=== PATIENT | male | born 1980 | race Caucasian/White ===

== ENCOUNTER 2020-09-12 04:35 | Emergency (ER) | payer MEDICAID, SELFPAY ==
[2020-09-12] VITALS (7 sets, daily range): BP systolic 127–145; BP diastolic 61–86; PULSE 76–89; RESP 15–18; TEMP 36.8–37; O2SAT 89–100; BMI 29.0
--- NOTE | 2020-09-12 04:51 | ED_ITS ---
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 Patient states taking 2 Klonopin than 1 beer and endorses that he also free based. As per EMS he was noted to vomit up dark colored material but no gross blood noted. Related Data Allergies Allergy/AdvReac Type Severity Reaction Status Date / Time No Known Allergies Allergy Verified 09/12/20 05:49 [No Known Allergies*] Review of Systems Review of Systems: Pertinent positives and negatives as stated in HPI 10 point review of systems otherwise negative. [facility] Past Medical History Source: nursing notes reviewed Medical History Drug abuse Liver disease Social History Social History Alcohol intake: current Alcohol intake frequency: 3 or more drinks per day Alcohol type: beer Smoking Status: Current every day smoker Use of substances other than those prescribed or required for medical reasons: Yes Substance Use Type: Crack/Cocaine and Sedatives Substance Use Frequency: Chronic Longstanding Last Used Substance: Just Prior to Admission Any prior treatment program specific to substance use: Yes Advance Directives: No Advance Directives Information Provided: No Physical Exam Vital Signs: Vital Signs: Last Vital Signs Temp 98.6 F 09/12/20 05:39 Pulse 76 09/12/20 08:04 Resp 16 09/12/20 07:23 BP 133/76 09/12/20 08:04 Pulse Ox 96 09/12/20 08:04 Body Mass Index 29.0 VITAL SIGNS: Reviewed. GENERAL: no acute distress. HEAD: Normocephalic/atraumatic, EYES: PERRLA, EOMI intact without pain EARS: Ext canals without abnormality, TMs non-bulging and non-erythematous NOSE: Nares patent bilateral OROPHARYNX: no oral lesions noted, posterior pharynx clear NECK: Supple, no adenopathy LUNGS: Normal breath sounds. No adventitious sounds or accessory muscle use. SpO2<96> on 2 L CARDIOVASCULAR: Regular rate and rhythm without noted murmurs, no JVD or lower extremity edema. ABDOMEN: Soft, mild tenderness to palpation on the right upper quadrant area without rebound, non-distended with bowel sounds. No rigidity. No guarding. No palpable masses or hernias noted NEUROLOGIC: Drowsy and oriented x 3. Course Course Course Narrative: Is a 39-year-old male with history and clinical presentation consistent with polysubstance use and liver disease. On review of all investigations INR and mild elevation of transaminases consistent with his endorsed history of liver disease and alcohol/drug dependence. Chest x-ray negative for any acute findings. Plan is to allow for the patient to become sober and reassess with a CBC at 4:00 a.m. prior to discharge to assess for evidence of bleeding. Sign out given to Dr Oseguera. MDM - Alcohol Lab Data Result diagrams: 09/12/20 05:29 09/12/20 05:29 Labs: Lab Results 09/12/20 09/12/20 09/12/20 Range/Units 05:29 05:29 05:29 WBC 15.9 H (4.8-10.8) X10*3/uL RBC 4.85 (4.60-5.80) X10*6/uL Hgb 9.8 L (14.0-18.0) g/dl Hct 34.5 L (42-52) % MCV 71.1 L (80-98) fL MCH 20.2 L (27.0-33.0) pg MCHC 28.4 L (31.0-36.0) g/dl RDW 19.4 H (11.0-16.0) % Plt Count 226 (160-400) X10*3/uL Immature Gran % (Auto) 0.4 (0.0-0.4) % Neut % (Auto) 90.3 H (45-73) % Lymph % (Auto) 4.4 L (20-40) % [place] % (Auto) 4.5 (2-11) % Eos % (Auto) 0.1 (0-4) % Baso % (Auto) 0.3 (0-2) % Lymph # (Auto) 0.7 L (1.2-4.9) X10*3/uL [place] # (Auto) 0.7 (0.1-1.2) X10*3/uL Eos # (Auto) 0.0 (0.0-0.4) X10*3/uL Baso # (Auto) 0.1 (0.0-0.2) X10*3/uL Abs Immat Gran (auto) 0.06 H (0.00-0.03) X10*3/uL Absolute Neuts (auto) 14.3 H (2.0-8.3) X10*3/uL Absolute Nucleated RBC 0.000 (0.0-0.012) X10*3/uL Nucleated RBC % (auto) 0.0 (0.0-0.2) /100WBC Smear Tech's Comments VERIFIED PT (10.8-13.0) SEC INR (0.9-1.1) Sodium 136 (135-145) mmol/L Potassium 4.4 (3.3-5.1) mmol/l Chloride 90 L (96-108) mmol/L Carbon Dioxide 32 H (22-29) mmol/L Anion Gap 18 (12-20) BUN 28 H (9-16) mg/dL Creatinine 1.17 (0.5-1.4) mg/dL Estim Creat Clear Calc 89.7 Estimated GFR > 60 Random Glucose 74 (60-115) mg/dL Calcium 9.2 (8.4-10.2) mg/dL Total Bilirubin 0.6 (0.0-1.0) mg/dL AST 184 H (5-37) U/L ALT 79 H (0-40) U/L Alkaline Phosphatase 69 (39-117) U/L Total Protein 8.1 H (6.5-8.0) g/dL Albumin 4.6 (3.5-5.0) g/dL Lipase 44 (8-78) U/L Ethyl Alcohol < 10 mg/dL 09/12/20 Range/Units 05:29 WBC (4.8-10.8) X10*3/uL RBC (4.60-5.80) X10*6/uL Hgb (14.0-18.0) g/dl Hct (42-52) % MCV (80-98) fL MCH (27.0-33.0) pg MCHC (31.0-36.0) g/dl RDW (11.0-16.0) % Plt Count (160-400) X10*3/uL Immature Gran % (Auto) (0.0-0.4) % Neut % (Auto) (45-73) % Lymph % (Auto) (20-40) % [place] % (Auto) (2-11) % Eos % (Auto) (0-4) % Baso % (Auto) (0-2) % Lymph # (Auto) (1.2-4.9) X10*3/uL [place] # (Auto) (0.1-1.2) X10*3/uL Eos # (Auto) (0.0-0.4) X10*3/uL Baso # (Auto) (0.0-0.2) X10*3/uL Abs Immat Gran (auto) (0.00-0.03) X10*3/uL Absolute Neuts (auto) (2.0-8.3) X10*3/uL Absolute Nucleated RBC (0.0-0.012) X10*3/uL Nucleated RBC % (auto) (0.0-0.2) /100WBC Smear Tech's Comments PT 13.9 H (10.8-13.0) SEC INR 1.2 H (0.9-1.1) Sodium (135-145) mmol/L Potassium (3.3-5.1) mmol/l Chloride (96-108) mmol/L Carbon Dioxide (22-29) mmol/L Anion Gap (12-20) BUN (9-16) mg/dL Creatinine (0.5-1.4) mg/dL Estim Creat Clear Calc Estimated GFR Random Glucose (60-115) mg/dL Calcium (8.4-10.2) mg/dL Total Bilirubin (0.0-1.0) mg/dL AST (5-37) U/L ALT (0-40) U/L Alkaline Phosphatase (39-117) U/L Total Protein (6.5-8.0) g/dL Albumin (3.5-5.0) g/dL Lipase (8-78) U/L Ethyl Alcohol mg/dL Discharge Plan Discharge Clinical Impression: Polysubstance dependence including opioid drug with daily use Patient Disposition: Home, Self-Care Additional Instructions: Please do not hesitate to return the emergency department should you experience shortness of breath, chest pain.
[2020-09-12] MEDS: 0.9 % Sodium Chloride 1,000 ML 999 ML IV (05:28)
[2020-09-12 05:40] LABS: Eosinophils Percent Auto 0.1 % (0-4); MANUAL DIFF FLAG SCAN; SCAN SMEAR FLAG 1
[2020-09-12 05:42] LABS: Basophils Absolute Auto 0.1 X10*3/uL (0.0-0.2); Basophils Percent Auto 0.3 % (0-2); Hematocrit 34.5 % (42-52); Hemoglobin 9.8 g/dl (14.0-18.0); Imm Gran Abs Auto 0.06 X10*3/uL (0.00-0.03); Imm Gran Pct Auto 0.4 % (0.0-0.4); Lymphocytes Absolute Auto 0.7 X10*3/uL (1.2-4.9); Lymphocytes Percent Auto 4.4 % (20-40); Mean Corpuscular HGB Conc 28.4 g/dl (31.0-36.0); Mean Corpuscular Hemoglobin 20.2 pg (27.0-33.0); Mean Corpuscular Volume 71.1 fL (80-98); Monocytes Absolute Auto 0.7 X10*3/uL (0.1-1.2); Monocytes Percent Auto 4.5 % (2-11); Neutrophils Absolute Auto 14.3 X10*3/uL (2.0-8.3); Neutrophils Percent Auto 90.3 % (45-73); Platelet Count 226 X10*3/uL (160-400); Red Blood Count 4.85 X10*6/uL (4.60-5.80); Red Cell Distribution Width 19.4 % (11.0-16.0); White Blood Count 15.9 X10*3/uL (4.8-10.8)
[2020-09-12 05:45] LABS: INTERNATIONAL NORM RATIO 1.2 (0.9-1.1); Prothrombin Time 13.9 SEC (10.8-13.0)
[2020-09-12 05:47] LABS: PLT ABN DIST 1
--- NOTE | 2020-09-12 05:50 | XR_ITS ---
EXAMINATION: XR CHEST CLINICAL INFORMATION: Cough COMPARISON: CT 04/07/2020 TECHNIQUE: Frontal view of the chest was obtained. FINDINGS: The lungs are well expanded. There is no focal consolidation, edema, or effusion. No pneumothorax. The cardiomediastinal silhouette is within normal limits. No acute osseous abnormality. XR/XR chest 1V IMPRESSION: Clear lungs.
--- NOTE | 2020-09-12 05:52 | PC.NURSE ---
Patient was found in a lobby of an apartment building where he does not live. Apparently, patient was intoxicated and found in his own vomit which was black according to EMS. Patient states that he took 2 clonazepam and drank 1 beer per his report. Patient's initial oxygen sat was 89 percent. Oxygen administered at 2 liters and O2 sat increased to 99 percent. Patient then stated that he took coke and did a speedball when speaking to MD. Patient is an unreliable source of information. Patient initially denied doing any other drugs and then admitted to it and then denied it again. He also report he has an issue with his liver and received treatment while at [facility]. MD evaluation completed and patient lined and lab'd.
[2020-09-12 06:00] LABS: Ethanol < 10 mg/dL
[2020-09-12 06:11] LABS: SLIDE REVIEW VERIFIED
[2020-09-12 06:46] LABS: Alanine Aminotransferase 79 U/L (0-40); Albumin Level 4.6 g/dL (3.5-5.0); Alkaline Phosphatase 69 U/L (39-117); Anion Gap 18 (12-20); Aspartate Amino Transferase 184 U/L (5-37); Bilirubin Total 0.6 mg/dL (0.0-1.0); Blood Urea Nitrogen 28 mg/dL (9-16); Calcium 9.2 mg/dL (8.4-10.2); Carbon Dioxide 32 mmol/L (22-29); Chloride 90 mmol/L (96-108); Creatinine Clr Calc Pharmacy 89.7; Estimated Glomerular Filt Rate > 60; Glucose Random 74 mg/dL (60-115); Potassium 4.4 mmol/l (3.3-5.1); Sodium 136 mmol/L (135-145); Total Protein 8.1 g/dL (6.5-8.0)
--- NOTE | 2020-09-12 07:22 | PC.NURSE ---
pt appears comfortable in bed, rr even/unlabored spo2 100% on 2l nc. pt spo2 turned off and pt desat to 95%; placed back on 0.5l/min nc for comfort, spo2 up to 98%. alert to tactile stimuli. wctm.
[2020-09-12 07:42] LABS: Lipase 44 U/L (8-78)
--- NOTE | 2020-09-12 08:03 | PC.NURSE ---
Addendum entered by Jair Mcintosh 09/12/20 08:11: tolerating po w/o issue. Original Note: pt awake, asking for something to eat. educated about need for urine sample, given urinal. given sandwich and water.
[2020-09-12 08:42] LABS: Amphetamine Screen Urine Not Detected (Not Detect); Barbiturates, Urine Not Detected (Not Detect); Benzodiazepines Screen Urine POSITIVE (Not Detect); Cannabinoid Screen Urine Not Detected (Not Detect); Cocaine Screen Urine POSITIVE (Not Detect); Opiate Screen Urine POSITIVE (Not Detect); Phencyclidine Screen Urine Not Detected (Not Detect)
--- NOTE | 2020-09-12 09:29 | PC.NURSE ---
PT EATING AND DRINKING WITHOUT DIFFICULTY
--- NOTE | 2020-09-12 09:52 | PC.NURSE ---
pt tolerating food, currently in br getting dressed and ready to leave
--- NOTE | 2020-09-12 10:37 | ED_ITS ---
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 Mode of arrival: EMS Related Data Allergies Allergy/AdvReac Type Severity Reaction Status Date / Time No Known Allergies Allergy Verified 09/12/20 05:49 [No Known Allergies*] [facility] Past Medical History Medical History Drug abuse Liver disease Social History Social History Alcohol intake: current Alcohol intake frequency: 3 or more drinks per day Alcohol type: beer Smoking Status: Current every day smoker Use of substances other than those prescribed or required for medical reasons: Yes Substance Use Type: Crack/Cocaine and Sedatives Substance Use Frequency: Chronic Longstanding Last Used Substance: Just Prior to Admission Any prior treatment program specific to substance use: Yes Advance Directives: No Advance Directives Information Provided: No Physical Exam Vital Signs: Vital Signs: Last Vital Signs Temp 98.6 F 09/12/20 05:39 Pulse 76 09/12/20 08:04 Resp 16 09/12/20 07:23 BP 133/76 09/12/20 08:04 Pulse Ox 96 09/12/20 08:04 Body Mass Index 29.0 Medical Decision Making MDM Narrative Medical decision making narrative: Patient well-appearing at 10:30 is awake alert. Will ambulate patient. In stable condition. Patient admits to using recreational drugs. Awaiting discharge Patient's repeat hemoglobin approximately baseline and consideration of patient getting fluid here in the emergency department overnight. Patient refused detox. Case management evaluated patient. Patient will be discharged. Lab Data Result diagrams: 09/12/20 11:24 09/12/20 05:29 Labs: Lab Results 09/12/20 09/12/20 09/12/20 Range/Units 05:29 05:29 05:29 WBC 15.9 H (4.8-10.8) X10*3/uL RBC 4.85 (4.60-5.80) X10*6/uL Hgb 9.8 L (14.0-18.0) g/dl Hct 34.5 L (42-52) % MCV 71.1 L (80-98) fL MCH 20.2 L (27.0-33.0) pg MCHC 28.4 L (31.0-36.0) g/dl RDW 19.4 H (11.0-16.0) % Plt Count 226 (160-400) X10*3/uL MPV (9.4-12.4) fL Immature Gran % (Auto) 0.4 (0.0-0.4) % Neut % (Auto) 90.3 H (45-73) % Lymph % (Auto) 4.4 L (20-40) % [place] % (Auto) 4.5 (2-11) % Eos % (Auto) 0.1 (0-4) % Baso % (Auto) 0.3 (0-2) % Lymph # (Auto) 0.7 L (1.2-4.9) X10*3/uL [place] # (Auto) 0.7 (0.1-1.2) X10*3/uL Eos # (Auto) 0.0 (0.0-0.4) X10*3/uL Baso # (Auto) 0.1 (0.0-0.2) X10*3/uL Abs Immat Gran (auto) 0.06 H (0.00-0.03) X10*3/uL Absolute Neuts (auto) 14.3 H (2.0-8.3) X10*3/uL Absolute Nucleated RBC 0.000 (0.0-0.012) X10*3/uL Nucleated RBC % (auto) 0.0 (0.0-0.2) /100WBC Smear Tech's Comments VERIFIED PT (10.8-13.0) SEC INR (0.9-1.1) Sodium 136 (135-145) mmol/L Potassium 4.4 (3.3-5.1) mmol/l Chloride 90 L (96-108) mmol/L Carbon Dioxide 32 H (22-29) mmol/L Anion Gap 18 (12-20) BUN 28 H (9-16) mg/dL Creatinine 1.17 (0.5-1.4) mg/dL Estim Creat Clear Calc 89.7 Estimated GFR > 60 Random Glucose 74 (60-115) mg/dL Calcium 9.2 (8.4-10.2) mg/dL Total Bilirubin 0.6 (0.0-1.0) mg/dL AST 184 H (5-37) U/L ALT 79 H (0-40) U/L Alkaline Phosphatase 69 (39-117) U/L Total Protein 8.1 H (6.5-8.0) g/dL Albumin 4.6 (3.5-5.0) g/dL Lipase 44 (8-78) U/L Urine Opiates Screen (Not Detect) Ur Barbiturates Screen (Not Detect) Ur Phencyclidine Scrn (Not Detect) Ur Amphetamines Screen (Not Detect) U Benzodiazepines Scrn (Not Detect) Urine Cocaine Screen (Not Detect) U Marijuana (THC) Screen (Not Detect) Ethyl Alcohol < 10 mg/dL 09/12/20 09/12/20 09/12/20 Range/Units 05:29 08:07 11:24 WBC 9.3 (4.8-10.8) X10*3/uL RBC 4.37 L (4.60-5.80) X10*6/uL Hgb 8.9 L (14.0-18.0) g/dl Hct 30.9 L (42-52) % MCV 70.7 L (80-98) fL MCH 20.4 L (27.0-33.0) pg MCHC 28.8 L (31.0-36.0) g/dl RDW 19.0 H (11.0-16.0) % Plt Count 244 (160-400) X10*3/uL MPV 10.5 (9.4-12.4) fL Immature Gran % (Auto) 0.2 (0.0-0.4) % Neut % (Auto) 84.7 H (45-73) % Lymph % (Auto) 8.8 L (20-40) % [place] % (Auto) 5.7 (2-11) % Eos % (Auto) 0.4 (0-4) % Baso % (Auto) 0.2 (0-2) % Lymph # (Auto) 0.8 L (1.2-4.9) X10*3/uL [place] # (Auto) 0.5 (0.1-1.2) X10*3/uL Eos # (Auto) 0.0 (0.0-0.4) X10*3/uL Baso # (Auto) 0.0 (0.0-0.2) X10*3/uL Abs Immat Gran (auto) 0.02 (0.00-0.03) X10*3/uL Absolute Neuts (auto) 7.9 (2.0-8.3) X10*3/uL Absolute Nucleated RBC 0.000 (0.0-0.012) X10*3/uL Nucleated RBC % (auto) 0.0 (0.0-0.2) /100WBC Smear Tech's Comments PT 13.9 H (10.8-13.0) SEC INR 1.2 H (0.9-1.1) Sodium (135-145) mmol/L Potassium (3.3-5.1) mmol/l Chloride (96-108) mmol/L Carbon Dioxide (22-29) mmol/L Anion Gap (12-20) BUN (9-16) mg/dL Creatinine (0.5-1.4) mg/dL Estim Creat Clear Calc Estimated GFR Random Glucose (60-115) mg/dL Calcium (8.4-10.2) mg/dL Total Bilirubin (0.0-1.0) mg/dL AST (5-37) U/L ALT (0-40) U/L Alkaline Phosphatase (39-117) U/L Total Protein (6.5-8.0) g/dL Albumin (3.5-5.0) g/dL Lipase (8-78) U/L Urine Opiates Screen POSITIVE H (Not Detect) Ur Barbiturates Screen Not Detected (Not Detect) Ur Phencyclidine Scrn Not Detected (Not Detect) Ur Amphetamines Screen Not Detected (Not Detect) U Benzodiazepines Scrn POSITIVE H (Not Detect) Urine Cocaine Screen POSITIVE H (Not Detect) U Marijuana (THC) Screen Not Detected (Not Detect) Ethyl Alcohol mg/dL Discharge Plan Discharge Clinical Impression: Polysubstance dependence including opioid drug with daily use Patient Disposition: Home, Self-Care Additional Instructions: Please do not hesitate to return the emergency department should you experience shortness of breath, chest pain.
--- NOTE | 2020-09-12 11:21 | MHC.CM.ED ---
Requested to meet with pt by Dr. Oseguera to determine transportation pending d/c home. Pt refuses to go home. States he has too much stomach pain. Pt states he is homeless and his listed address is his sisters. Pt states he cannot go there. Reported conversation to Dr. Oseguera. Ordered fannie.
[2020-09-12] MEDS: Magnesium Hydrox/Alum Hydrox 30 ML ORAL.SUSP PO (11:26)
[2020-09-12 11:30] LABS: MANUAL DIFF FLAG NO
[2020-09-12 11:33] LABS: Basophils Percent Auto 0.2 % (0-2); Eosinophils Percent Auto 0.4 % (0-4); Hematocrit 30.9 % (42-52); Hemoglobin 8.9 g/dl (14.0-18.0); Imm Gran Abs Auto 0.02 X10*3/uL (0.00-0.03); Imm Gran Pct Auto 0.2 % (0.0-0.4); Lymphocytes Absolute Auto 0.8 X10*3/uL (1.2-4.9); Lymphocytes Percent Auto 8.8 % (20-40); Mean Corpuscular HGB Conc 28.8 g/dl (31.0-36.0); Mean Corpuscular Hemoglobin 20.4 pg (27.0-33.0); Mean Corpuscular Volume 70.7 fL (80-98); Mean Platelet Volume 10.5 fL (9.4-12.4); Monocytes Absolute Auto 0.5 X10*3/uL (0.1-1.2); Monocytes Percent Auto 5.7 % (2-11); Neutrophils Absolute Auto 7.9 X10*3/uL (2.0-8.3); Neutrophils Percent Auto 84.7 % (45-73); Platelet Count 244 X10*3/uL (160-400); Red Blood Count 4.37 X10*6/uL (4.60-5.80); White Blood Count 9.3 X10*3/uL (4.8-10.8)
--- NOTE | 2020-09-12 12:02 | PC.NURSE ---
pt margret refusing to leave has appt at [facility] tomorrow at 2 states he doesn't have a ride
--- NOTE | 2020-09-12 12:23 | MHC.RECOVSUP ---
? Reason for consult:Continuity of care o Current location: [facility] o Identified substance use concern: Heroin - Withdrawal - Support Spoke in depth about MAT and the possibility of using that again. Pt. was on MAT through [facility] recently as 2 months ago. ? Intervention: o Community resources provided o Harm reduction discussion ? Plan: o Referral to [facility] o Follow up tomorrow o Patient to follow up with [facility] tomorrow at 2:00pm. ? Additional information: Pt. did not want to go to detox, pt was in withdrawel and very agitated. Suggested MAT and the patient was receptive to that and has a 2:00 pm appt. tomorrow with the clinic. Pt to be D/C.
== END 2020-09-12 12:21 | disposition home or self-care (01) ==
PROVIDERS: Student in an Organized Health Care Education/Training Program; Emergency Provider Emergency Medicine Emergency Medical Services
DX: F19.10 Other psychoactive substance abuse, uncomplicated (principal); F14.10 Cocaine abuse, uncomplicated; F11.10 Opioid abuse, uncomplicated; R11.10 Vomiting, unspecified; F17.200 Nicotine dependence, unspecified, uncomplicated
CPT/HCPCS: 36415; 71045; 80053; 80307; 80320; 83690; 85025; 85610; 96360; 99284; 99285

== ENCOUNTER 2021-02-28 14:44 | Inpatient (IN) | payer MEDICAID, SELFPAY ==
[2021-02-28] VITALS (36 sets, daily range): BP systolic 107–160; BP diastolic 52–88; PULSE 63–120; RESP 12–26; TEMP 35.5–36.7; O2SAT 95–100; BMI 30.4; BMI 25.8
--- NOTE | ~2021-02-28 | CT_ITS ---
EXAMINATION: CT CHEST, ABDOMEN AND PELVIS WITHOUT CONTRAST CLINICAL INFORMATION: Aspiration and GI bleed COMPARISON: Contrast enhanced CT chest, abdomen and pelvis 04/07/2020 TECHNIQUE: Multidetector volumetric imaging was performed from the thoracic inlet through the pubic symphysis without IV contrast. Sagittal and coronal reformatted images were obtained on the technologist's workstation. This CT examination was performed using dose optimization techniques as appropriate, variously including the following: *Automated exposure control *Adjustment of mA and/or kV according to patient size (this includes techniques or standardized protocols for targeted exams where dose is matched to indication/reason for exam; i.e. extremities or head) *Use of iterative reconstruction technique DLP: 1796 mGy-cm FINDINGS: CHEST: Lung: Bibasilar infiltrates/consolidations are present Mediastinum: An ET tube is present 4 cm above the tyrese. An NG tube has its tip in the stomach. The mediastinum is unremarkable. The central vascular structures are unremarkable. No hilar or mediastinal lymphadenopathy, but lack of IV contrast limits the exam for adenopathy evaluation.. Pericardium/Pleura: No significant effusion. A trace effusion is present on the left. No pleural mass or thickening. Chest Wall/Axilla: Unremarkable ABDOMEN/PELVIS: Peritoneal Space: No significant free air or free fluid identified. Liver, Gallbladder, Biliary Tree: The liver is normal in size, shape, and attenuation. No focal hepatic lesion or biliary ductal dilatation is present. The gallbladder is unremarkable with no evidence of radiopaque gallstones, gallbladder wall thickening, or obvious pericholecystic inflammatory changes. Pancreas: Unremarkable Spleen: Unremarkable Adrenal Glands: Unremarkable Kidneys and Ureters: The kidneys are normal in size, shape, and attenuation. No hydronephrosis, hydroureter, or calculi seen. No perinephric stranding. Bladder: Ochoa catheter is present in the bladder which is empty. Gastrointestinal Tract: The small and large bowel are unremarkable. The appendix is unremarkable. GI bleeding is difficult to assess without IV contrast, but no abnormal tumor or mass lesion is seen. Abdominal Wall: No significant hernia is appreciated. Lymph Nodes: Prominent retroperitoneal lymph nodes are present which are unchanged when compared to the prior study. The largest, left para-aortic, measures 1.9 x 1.1 in transverse dimensions (6: 36). Vascular: The aorta appears normal.. The IVC appears unremarkable. PELVIC VISCERA: There is a small amount of free intraperitoneal fluid is present in the pelvis. Prostate and seminal vesicles appear normal OSSEUS STRUCTURES: Mild degenerative changes are noted in the spine. No bony destructive lesions are seen. CT/CT abdomen pelvis wo con IMPRESSION: Bibasilar consolidations. Findings certainly would be compatible with aspiration. ET tube position. No acute abnormality seen in the abdomen or pelvis. Stable retroperitoneal lymph nodes.
--- NOTE | ~2021-02-28 | XR_ITS ---
EXAMINATION: XR CHEST CLINICAL INFORMATION: Aspiration pneumonia COMPARISON: Previous chest x-ray from 02/28/2021 TECHNIQUE: Frontal view of the chest was obtained. FINDINGS: There is an endotracheal tube with tip 5 cm above the tyrese. There is a nasogastric tube projects over the stomach. There is a right jugular line projects over the SVC. The cardiac and mediastinal contours are stable. There are increased markings at both lung bases, left greater than right, suggestive of pneumonia. This is not appreciably changed. There is no pleural effusion or pneumothorax. XR/XR chest 1V IMPRESSION: Satisfactory position of support line and tubes. No change in bilateral lower lobe airspace disease, left greater than right.
--- NOTE | ~2021-02-28 | XR_ITS ---
EXAMINATION: XR CHEST CLINICAL INFORMATION: Hypoxia. Rule out pneumonia. COMPARISON: Previous chest x-ray 09/12/2020 TECHNIQUE: Frontal view of the chest was obtained. FINDINGS: The cardiac silhouette is upper normal in size. There are increased perihilar lung markings questionable for airways disease/pneumonia mild pulmonary edema. The lungs are otherwise clear. There is no pleural effusion or pneumothorax. Bony structures are unremarkable. XR/XR chest 1V IMPRESSION: Upper normal-size cardiac silhouette. Increased perihilar lung markings questionable for airways disease/pneumonia versus mild pulmonary edema. Clinical correlation recommended.
--- NOTE | ~2021-02-28 | XR_ITS ---
EXAMINATION: XR CHEST CLINICAL INFORMATION: Check line and tube placement COMPARISON: Previous chest x-ray from earlier the same day TECHNIQUE: Frontal view of the chest was obtained. FINDINGS: There is a new endotracheal tube with tip 5 cm above the tyrese. There is a nasogastric tube projects over the stomach. There is a right jugular line projects over the SVC. The cardiac and mediastinal contours are stable. There are increased hilar markings. There is increasing airspace disease at the left lung base. There is no pleural effusion or pneumothorax. Bony structures are unremarkable. XR/XR chest 1V IMPRESSION: Satisfactory position of support line and tubes. Increasing airspace disease at the left lung base.
--- NOTE | 2021-02-28 14:52 | ED_ITS ---
HPI - Psych General Chief Complaint: ETOH/Substance Use Stated Complaint: HEROIN USE ([id number]),NO NARCAN NEEDED PER EMS Time Seen by Provider: 02/28/21 14:51 Source: patient and EMS Mode of arrival: EMS Limitations: other (difficult to follow at times due to intoxication) History of Present Illness HPI Narrative: 40 yo male snorting heroin and crack I haven't slept in 6 days I feel out of it my body is like not okay. no SI, just left detox 1 month ago post section 35 MD complaint: anxiety and substance abuse Onset (ago): day(s) (7) Duration: constant History of same: Yes Relieving factors: none Exacerbating factors: drug use Context: recent drug abuse Associated psychiatric symptoms: racing thoughts Associated symptoms: other (his ankles are swollen) Treatments prior to arrival: none Related Data Home Medications Medication Instructions Recorded Confirmed No Known Home Meds 02/28/21 02/28/21 Allergies Allergy/AdvReac Type Severity Reaction Status Date / Time No Known Allergies Allergy Verified 09/12/20 05:49 [No Known Allergies*] Review of Systems Review of Systems: ROS unable to be obtained due to intoxication [facility] Past Medical History Attestation statement: The following information was validated with the patient. Medical History Drug abuse Liver disease Social History Social History (Updated 02/28/21 @ 14:55 by Samantha Jiang DO) Alcohol intake: current Alcohol intake frequency: 3 or more drinks per day Alcohol type: beer Patient Tobacco Use Status: Current someday Tobacco user Substance Use Type: Crack/Cocaine and Sedatives Advance Directives: No Advance Directives Information Provided: Yes Physical Exam Vital Signs: Vital Signs: Last Vital Signs Temp 97.6 F 02/28/21 14:49 Pulse 110 H 02/28/21 14:49 Resp 20 02/28/21 14:49 BP 145/88 H 02/28/21 14:49 Pulse Ox 95 02/28/21 14:49 Body Mass Index 25.8 Appearance: Alert. Oriented X3. No acute distress. Anxious, rocking back and forth, I am not okay I haven't slept in 6 days Eyes: Pupils equal, round and reactive to light. ENT: Pharynx normal. Neck: Normal inspection. Neck supple. CVS: Normal heart rate and rhythm. Pulses normal. Respiratory: No respiratory distress. Breath sounds normal. Abdomen: Soft and non-tender. Rectal: light brown stool Skin: Skin warm and dry. Normal skin color. Normal skin turgor. Extremities: 1+ pitting edema bilateral ankles. No calf ttp Neuro: Oriented X 3. No motor deficit. No sensory deficit. Course Course Course Narrative: the patient is very belligerent and laughing, using profane language hemoglobin 6.1 hx of erosive esophagitis at this time labs, type and screen 2 UPRBCs ordered, IV protonix, last endoscopy 03/2020 no varices noted no trauma noted, he cannot offer me much of a history as to why his H/H is low and isn't sure if he had black stools or threw up recently, he agrees to blood message sent to GI ([facility]) as he was treated by their team in the past 423pm no acute needs for emergent GI intervention at this time, plan to admit and transfuse, needs IV ativan repeats given his sig crack use [employer] Dr. Novak aware at this time, plan for transfusion and protonix, the patient is stable and cannot offer much of a history at this time the patient vomited 4 times large of thin brown liquid likely the 8 pitchers of water he drank prior to his labs being drawn, there is no brb component no clots and no coffee grounds it is very thin, he was very loud yelling and threw up all over the room, gabe ordered, repeat ativan ordered. Dr Julio to assume care in the ED 445pm MDM - Psych MDM Narrative Medical decision making narrative: 40 yo male with hx of liver disease and polysubstance abuse comes in very restless and anxious after snorting heroin and crack for 6 days, he has some ankle swelling symmetric doubt DVT or infection likely related to his liver disease at this time will need labs, PO ativan for his crack abuse and restlessness, declines detox currently no SI Lab Data Result diagrams: 02/28/21 15:23 02/28/21 15:23 Labs: Lab Results 02/28/21 02/28/21 02/28/21 Range/Units 15:23 15:23 16:01 WBC 9.3 (4.8-10.8) X10*3/uL RBC 2.97 L D (4.60-5.80) X10*6/uL Hgb 6.1 L* D (14.0-18.0) g/dl Hct 21.7 L D (42-52) % MCV 73.1 L (80-98) fL MCH 20.5 L (27.0-33.0) pg MCHC 28.1 L (31.0-36.0) g/dl RDW 18.8 H (11.0-16.0) % Plt Count 351 D (160-400) X10*3/uL MPV 10.7 (9.4-12.4) fL Immature Gran % (Auto) 0.4 (0.0-0.4) % Neut % (Auto) 85.0 H (45-73) % Lymph % (Auto) 6.3 L (20-40) % [place] % (Auto) 7.5 (2-11) % Eos % (Auto) 0.6 (0-4) % Baso % (Auto) 0.2 (0-2) % Lymph # (Auto) 0.6 L (1.2-4.9) X10*3/uL [place] # (Auto) 0.7 (0.1-1.2) X10*3/uL Eos # (Auto) 0.1 (0.0-0.4) X10*3/uL Baso # (Auto) 0.0 (0.0-0.2) X10*3/uL Abs Immat Gran (auto) 0.04 H (0.00-0.03) X10*3/uL Absolute Neuts (auto) 7.9 (2.0-8.3) X10*3/uL Absolute Nucleated RBC 0.000 (0.0-0.012) X10*3/uL Nucleated RBC % (auto) 0.0 (0.0-0.2) /100WBC PT (10.8-13.0) SEC INR (0.9-1.1) APTT (24.1-38.0) SEC Sodium 141 (135-145) mmol/L Potassium 4.2 (3.3-5.1) mmol/L Chloride 106 (96-108) mmol/L Carbon Dioxide 27 (22-29) mmol/L Anion Gap 12 (12-20) BUN 19 H (9-16) mg/dL Creatinine 1.51 H (0.5-1.4) mg/dL Estim Creat Clear Calc 58.0 Estimated GFR 51 Random Glucose 109 D (60-115) mg/dL Calcium 8.5 D (8.4-10.2) mg/dL Total Bilirubin 0.5 (0.0-1.0) mg/dL Direct Bilirubin 0.2 (0.0-0.5) mg/dL AST 33 D (5-37) U/L ALT 22 (0-40) U/L Alkaline Phosphatase 75 (39-117) U/L Total Protein 6.5 (6.5-8.0) g/dL Albumin 3.8 (3.5-5.0) g/dL Stool Occult Blood (NEGATIVE) COVID-19 ([facility]) Negative (Negative) COVID-19 Clin Com See Note Crossmatch 02/28/21 02/28/21 02/28/21 Range/Units 16:11 16:11 16:12 WBC (4.8-10.8) X10*3/uL RBC (4.60-5.80) X10*6/uL Hgb (14.0-18.0) g/dl Hct (42-52) % MCV (80-98) fL MCH (27.0-33.0) pg MCHC (31.0-36.0) g/dl RDW (11.0-16.0) % Plt Count (160-400) X10*3/uL MPV (9.4-12.4) fL Immature Gran % (Auto) (0.0-0.4) % Neut % (Auto) (45-73) % Lymph % (Auto) (20-40) % [place] % (Auto) (2-11) % Eos % (Auto) (0-4) % Baso % (Auto) (0-2) % Lymph # (Auto) (1.2-4.9) X10*3/uL [place] # (Auto) (0.1-1.2) X10*3/uL Eos # (Auto) (0.0-0.4) X10*3/uL Baso # (Auto) (0.0-0.2) X10*3/uL Abs Immat Gran (auto) (0.00-0.03) X10*3/uL Absolute Neuts (auto) (2.0-8.3) X10*3/uL Absolute Nucleated RBC (0.0-0.012) X10*3/uL Nucleated RBC % (auto) (0.0-0.2) /100WBC PT 13.5 H (10.8-13.0) SEC INR 1.1 (0.9-1.1) APTT 28.2 (24.1-38.0) SEC Sodium (135-145) mmol/L Potassium (3.3-5.1) mmol/L Chloride (96-108) mmol/L Carbon Dioxide (22-29) mmol/L Anion Gap (12-20) BUN (9-16) mg/dL Creatinine (0.5-1.4) mg/dL Estim Creat Clear Calc Estimated GFR Random Glucose (60-115) mg/dL Calcium (8.4-10.2) mg/dL Total Bilirubin (0.0-1.0) mg/dL Direct Bilirubin (0.0-0.5) mg/dL AST (5-37) U/L ALT (0-40) U/L Alkaline Phosphatase (39-117) U/L Total Protein (6.5-8.0) g/dL Albumin (3.5-5.0) g/dL Stool Occult Blood POSITIVE (NEGATIVE) COVID-19 ([facility]) (Negative) COVID-19 Clin Com Crossmatch See Detail Critical Care Time Critical Care Time Critical Care Time: Yes Total Critical Care Time: 45 Attestation: medical consult, 2 UPRBCs I attest to this time spent taking care of the patient Discharge Plan Discharge Clinical Impression: Polysubstance abuse GIB (gastrointestinal bleeding) Qualifiers: GI bleed type/associated pathology: unspecified gastrointestinal hemorrhage type Qualified Code(s): K92.2 - Gastrointestinal hemorrhage, unspecified Anemia Qualifiers: Anemia type: unspecified type Qualified Code(s): D64.9 - Anemia, unspecified Patient Disposition: Admitted As Inpatient
[2021-02-28] MEDS: LORazepam 1 MG TABLET 2 MG PO (14:57)
[2021-02-28 15:30] LABS: MANUAL DIFF FLAG NO
[2021-02-28 15:33] LABS: Lymphocytes Absolute Auto 0.6 X10*3/uL (1.2-4.9); Lymphocytes Percent Auto 6.3 % (20-40)
[2021-02-28 15:42] LABS: Basophils Percent Auto 0.2 % (0-2); Eosinophils Absolute Auto 0.1 X10*3/uL (0.0-0.4); Eosinophils Percent Auto 0.6 % (0-4); Hematocrit 21.7 % (42-52); Imm Gran Abs Auto 0.04 X10*3/uL (0.00-0.03); Imm Gran Pct Auto 0.4 % (0.0-0.4); Mean Corpuscular HGB Conc 28.1 g/dl (31.0-36.0); Mean Corpuscular Hemoglobin 20.5 pg (27.0-33.0); Mean Corpuscular Volume 73.1 fL (80-98); Mean Platelet Volume 10.7 fL (9.4-12.4); Monocytes Absolute Auto 0.7 X10*3/uL (0.1-1.2); Monocytes Percent Auto 7.5 % (2-11); Neutrophils Absolute Auto 7.9 X10*3/uL (2.0-8.3); Platelet Count 351 X10*3/uL (160-400); Red Blood Count 2.97 X10*6/uL (4.60-5.80); Red Cell Distribution Width 18.8 % (11.0-16.0); White Blood Count 9.3 X10*3/uL (4.8-10.8)
[2021-02-28 15:44] LABS: Hemoglobin 6.1 g/dl (14.0-18.0)
[2021-02-28] MEDS: Pantoprazole Sodium 40 MG/10 ML VIAL 80 MG IVPUSH (15:45)
--- NOTE | 2021-02-28 15:49 | ECG_ITS ---
Test Reason : OVERDOSE Blood Pressure : / mmHG Vent. Rate : 101 BPM Atrial Rate : 101 BPM P-R Int : 130 ms QRS Dur : 084 ms QT Int : 370 ms P-R-T Axes : 071 068 056 degrees QTc Int : 479 ms Sinus tachycardia Otherwise normal ECG When compared with ECG of 17-AUG-2019 07:43, Vent. rate has increased BY [address] no longer elevated in Anterior leads Referred By: Samantha Jiang Electronically Signed By:AMRIT MORFIN
[2021-02-28 15:58] LABS: Alanine Aminotransferase 22 U/L (0-40); Albumin Level 3.8 g/dL (3.5-5.0); Alkaline Phosphatase 75 U/L (39-117); Anion Gap 12 (12-20); Aspartate Amino Transferase 33 U/L (5-37); Bilirubin Direct 0.2 mg/dL (0.0-0.5); Bilirubin Total 0.5 mg/dL (0.0-1.0); Blood Urea Nitrogen 19 mg/dL (9-16); Calcium 8.5 mg/dL (8.4-10.2); Carbon Dioxide 27 mmol/L (22-29); Chloride 106 mmol/L (96-108); Estimated Glomerular Filt Rate 51; Glucose Random 109 mg/dL (60-115); Potassium 4.2 mmol/L (3.3-5.1); Sodium 141 mmol/L (135-145); Total Protein 6.5 g/dL (6.5-8.0)
[2021-02-28] MEDS: Pantoprazole Sodium 80 MG in 0.9 % Sodium Chloride 80 ML 10 MG IV ×2 (16:00→23:28)
[2021-02-28 16:17] LABS: OBS Int Ctl Valid YES; OBS1 POSITIVE (NEGATIVE)
[2021-02-28] MEDS: LORazepam 2 MG/ML VIAL 1 MG IVPUSH ×2 (16:27→17:04)
[2021-02-28 16:32] LABS: INTERNATIONAL NORM RATIO 1.1 (0.9-1.1); Prothrombin Time 13.5 SEC (10.8-13.0)
[2021-02-28 16:34] LABS: Partial Thromboplastin Time 28.2 SEC (24.1-38.0)
[2021-02-28 16:45] LABS: COVID-19 Test Negative (Negative)
[2021-02-28] MEDS: ondansetron HCL 4 MG/2 ML VIAL 8 MG IVPUSH (16:45)
[2021-02-28] MEDS: Haloperidol Lactate 5 MG/ML VIAL IVPUSH (16:50)
[2021-02-28 16:52] LABS: Ethanol < 10 mg/dL
[2021-02-28] MEDS: Thiamine HCL 200 MG/2 ML VIAL 100 MG IVPUSH (17:05)
[2021-02-28 17:41] LABS: Iron 11 mcg/dL (45-160); Percent Iron Saturation 3 % (15-50); Total Iron Binding Capacity 351 mcg/dL (228-428); Unsaturated Iron Binding 340 ug/dL
[2021-02-28 18:02] LABS: Ferritin 4 ng/mL (20-250)
--- NOTE | 2021-02-28 18:07 | PC.NURSE ---
Late Entry: Pt arrived by [facility] for substance use. Per ems, pt had consumed 9 bags of heroin, pt admits to 5-6. 911 call was placed after pd noticed patient was running in and out of traffic. Pt was placed in 22H-pt was agitated but easily verbally redirected. Pt was given 2mg po ativan, per pt request to assist with feeling of anxiety. Pt was informed of low H&H and need for further work up due to concerns of GI bleeding. Pt given 1 mg ativan for reported anxiety regarding rectal exam and the need for further blood draws. Pt was then moved into bed 22 for privacy and telemontioring. Pt began having increasing agitation at approximately 1635-pt began attempting to remove IV line, Pull off monitoring equipment, and physically strike at staff. Pt made numerous attempts to get out of bed, but was unable to safetly due to do to intoxication. Pt was unable to be redirected verbally at this time. at 1640, pt sat up, began moaning, swearing in Upper Sorbian, pt then vomited large amount of meal, water, and dark brown, but clear vomit. 8mg Zofran was given IVP, pt cleaned up, moved to 2nd bed. Pt continues to flail limbs attempting to strike staff assisting at the time, pt was unable to be redirected verbally and continued to climb out bed. 5mg Haldol IVP was given at 1650 to further assist with behavioral control. Pt was then cleaned up, blood transfusion began at 1716. At approximately 1730, pt woke up, began to moan loudly increased respirations, and rigorous/stridorous upper airway noised. Dr. Salmon called to bedside for evaluation. Md attributed this episode to potentially anxiety, but due to mild desaturation post medication restraint, chest xray was taken. MD confirmed that it was okay to continue transfusion at this time. pt placed on 2 Lpm via NC and immediately increased to 96-98%. Per Dr. Salmon, plan to place pt in physical soft restraints at this time due to pt attempting to remove IV line multiple times.
--- NOTE | 2021-02-28 18:40 | PC.NURSE ---
pt placed on venti due to mouth breathing, saturation 94% via 3LPm
--- NOTE | 2021-02-28 18:46 | PC.NURSE ---
md notified of change to venti and saturation ranging between 89% to 94%-plan at this time is to give the 2nd unit of blood, then recontact hospitalist for admission.
--- NOTE | 2021-02-28 19:15 | PC.NURSE ---
md notified of decreasing spo2 intructed to continue blood transfusion. pt increased on 10L on 45% sat remained 89-90%
--- NOTE | 2021-02-28 19:17 | PC.NURSE ---
awaiting Respiratory to assist with high flow.
[2021-02-28 19:28] LABS: Ammonia 61 umol/L (13-55)
--- NOTE | 2021-02-28 19:29 | PC.NURSE ---
PLAN FOR INTUBATION
--- NOTE | 2021-02-28 19:30 | PC.NURSE ---
ETOMIDATE 20MG IVP@193
[2021-02-28] MEDS: Etomidate 20 MG/10 ML VIAL IVPUSH (19:31)
--- NOTE | 2021-02-28 19:31 | PC.NURSE ---
ROCURONIUM 50MG IVP @ 193
--- NOTE | 2021-02-28 19:31 | PC.NURSE ---
GLIDE SCOPE ASSISTED INTUBATION - 7.5 ET TUBE, +COLOR CHANGE, 26 AT THE LIP AUSCULTATION WITH GOOD AIR MOVEMENT
[2021-02-28] MEDS: Rocuronium Bromide 50 MG/5 ML VIAL IVPUSH ×2 (19:38→19:48)
--- NOTE | 2021-02-28 19:38 | MHC.RECOVSUP ---
Reason for consult o Current location: ED 5 o Identified substance use concern: Opioid <del>-</del> <del>Overdose</del> <del>-</del> <del>Withdrawal</del> <del>-</del> <del>Seeking</del> <del>ATS</del> <del>(detox)</del> <del>-</del> <del>Support</del> <del>?</del> <del>Intervention:</del> <del>o</del> <del>ATS</del> <del>bed</del> <del>search</del> <del>started/completed/in</del> <del>process</del> <del>o</del> <del>MAT</del> <del>started</del> <del>or</del> <del>to</del> <del>be</del> <del>started</del> <del>o</del> <del>Community</del> <del>resources</del> <del>provided</del> <del>o</del> <del>Harm</del> <del>reduction</del> <del>discussion</del> <del>?</del> <del>Plan:</del> <del>o</del> <del>Referral</del> <del>to</del> <del>[facility]</del> <del>o</del> <del>Bed</del> <del>search</del> <del>in</del> <del>progress</del> <del>to</del> <del>o</del> <del>Follow</del> <del>up</del> <del>tomorrow</del> <del>o</del> <del>Patient</del> <del>awaiting</del> <del>crisis</del> <del>evaluation</del> <del>o</del> <del>Patient</del> <del>to</del> <del>follow</del> <del>up</del> <del>with</del> <del>[facility]</del> <del>after</del> <del>discharge</del> ? Additional information: I was not able engage with pt. pt was being restrained for his safety. pt is also pending admission.
--- NOTE | 2021-02-28 19:41 | PC.NURSE ---
PROPOFOL 20MCG/KG/MIN INITIATED FOR SEDATION @194
--- NOTE | 2021-02-28 19:48 | P.CNGI_ITS ---
History of Present Illness Data of Consult Service Date: 02/28/21 Requesting physician: Samantha Jiang Primary Care Provider: [facility] HPI Reason for consult: Severe anemia 40-year-old male brought to [facility] ED after multiple substance abuse: HPI Narrative: 40 yo male snorting heroin (8 bags) and crack I haven't slept in 6 days I feel out of it my body is like not okay. no SI, just left detox 1 month ago post section 35 MD complaint: anxiety and substance abuse History obtained from review of patient's medical record. Unable to obtain history from the patient since he chemically restrain with Haldol. Labs reveal microcytic hypochromic anemia with H&H of 6.1 and 21.7 (decreased from 8.9 & 30.9 in 09/02), normal LFTs In the ED, patient vomited 4 times large of thin brown liquid likely the 8 pitchers of water he drank prior to his labs being drawn, there is no brb component no clots and no coffee grounds it is very thin, he was very loud yelling and threw up all over the room IMAGING STUDIES: Chest Xray was normal ENDOSCOPIC STUDIES: 03/2020 EGD showed: Esophagus: Severe erosive esophagitis with ulcerations with yellow exudate from 26 to 38 cms. GE junction at 38 cms, hiatal hernia 38 to 42 cms. No obvious MW tear noted - possibly healed. No varices noted. Patient was advised follow-up with repeat EGD and was a no-show PAST GI HISTORY BY REVIEW OF MEDICAL RECORDS: Pt was seen in consultation in 02/2019 when he was admitted with a drug overdose 38-year-old male with chronic right ankle pain, right leg arthritis, cocaine and heroin abuse with long history of GERD admitted after becoming non-responsive due to drug OD. Chest and abdominal CT scan showed wall thickening of the mid and distal esophagus. CT changes are most likely due to severe esophagitis from reflux. Other possibilities include bacterial are at Marine esophagitis. He is at risk for esophageal cancer given a long history of smoking. Elevated LFTs: Likely due to steatohepatitis or hepatitis-C. Patient gives a history of chronic hepatitis C for the past several years - mode of transmission is likely related to IVDA or multiple tattoos acquired in OR. Recommendation: 1. Proceed with upper endoscopy to follow up on CT abnormality. Procedure and potential complications were reviewed with the patient. EGD will be scheduled in the a.m.. 2. Continue IV PPI 3. Obtain hepatitis B and C serologies and prothrombin time - added to a.m. labs. Review of Systems Review of Systems: Not obtainable since patient is sedated with Haldol PMFSH Past Medical History Medical History Drug abuse Liver disease Social History Social History (Updated 02/28/21 @ 14:55 by Samantha Jiang DO) Alcohol intake: current Alcohol intake frequency: 0-2 drinks per day Alcohol type: beer Patient Tobacco Use Status: Current someday Tobacco user Smoked in Last 30 Days: Yes Use of substances other than those prescribed or required for medical reasons: Yes Substance Use Type: Amphetamines, Club/Cut [employer] Drugs, Crack/Cocaine, Methamphetamine and Unknown Substance Use Frequency: Chronic Longstanding Advance Directives: No Advance Directives Information Provided: Yes Meds Allergies Allergy/AdvReac Type Severity Reaction Status Date / Time No Known Allergies Allergy Verified 09/12/20 05:49 [No Known Allergies*] Active Medications: Current Medications Generic Name Dose Route Start Last Admin Trade Name Freq PRN Reason Stop Dose Admin Pantoprazole Sodium 80 mg/ 100 mls @ 10 mls/hr 02/28/21 16:00 02/28/21 16:00 Sodium Chloride IV 8 mg/hr .Q10H DARÍO 10 mls/hr Administration 8 MG/HR Home Medications Medication Instructions Recorded Confirmed Last Taken Type No Known Home Meds 02/28/21 02/28/21 Unknown History Physical Exam Vital Signs: Vital Signs: Last Vital Signs Temp 98.0 F 02/28/21 19:15 Pulse 72 02/28/21 19:40 Resp 12 02/28/21 19:29 BP 141/88 H 02/28/21 19:40 Pulse Ox 100 02/28/21 19:40 Body Mass Index 25.8 Const: General: healthy appearing and no acute distress Nutritional Appearance: average body habitus Orientation/consciousness: patient oriented x3 Limitations: no limitations HENMT: Head: Yes normal to inspection Ears: hearing grossly normal bilaterally Mouth: Normal oral and palatal mucosa present Eyes: Sclerae: sclerae normal Pupils: Equal, round and reactive pupils present Neck: Neck: Yes normal visual inspection Chest: Chest palpation & inspection: normal inspection of the chest Resp: Effort & Inspection: normal respiratory effort Auscultation: clear to auscultation bilaterally Cardio: Palpation: normal PMI Rate: regular rate Rhythm: regular rhythm Heart sounds: S1 normal heart sound present, S2 normal heart sound present and no murmurs GI: Other: Rectal exam by ED physician: light brown stool Palpation (GI): Soft to palpation, nontender and No hepatosplenomegaly present Auscultation: normal bowel sounds Rectal Exam - Male: Yes deferred Skin: General skin exam: no rashes or lesions noted Neuro: General: patient oriented x3, gait normal and moves all extremities Cranial nerves: Yes Equal, round and reactive pupils present Psych: Appearance: grossly normal Mental Status: mental status grossly normal Results Labs CBC & Chem 7: 02/28/21 15:23 02/28/21 15:23 Labs: Short CBC 02/28/21 Range/Units 15:23 WBC 9.3 (4.8-10.8) X10*3/uL Hgb 6.1 L* D (14.0-18.0) g/dl Hct 21.7 L D (42-52) % Plt Count 351 D (160-400) X10*3/uL BMP 02/28/21 15:23 Sodium 141 Potassium 4.2 Chloride 106 Carbon Dioxide 27 BUN 19 H Creatinine 1.51 H Calcium 8.5 D Liver Function 02/28/21 Range/Units 15:23 Total Bilirubin 0.5 (0.0-1.0) mg/dL Direct Bilirubin 0.2 (0.0-0.5) mg/dL AST 33 D (5-37) U/L ALT 22 (0-40) U/L Alkaline Phosphatase 75 (39-117) U/L Albumin 3.8 (3.5-5.0) g/dL Assessment and Plan (1) GIB (gastrointestinal bleeding): Qualifiers: GI bleed type/associated pathology: unspecified gastrointestinal hemorrhage type Qualified Code(s): K92.2 - Gastrointestinal hemorrhage, unspecified Status: Acute (2) Anemia: Qualifiers: Anemia type: unspecified type Qualified Code(s): D64.9 - Anemia, unspecified Status: Acute (3) GERD with esophagitis: Status: Acute 40 YM with polysubstance abuse brought to [facility] ED in an agitated state after snorting 8 bags of heroin. Labs showed severe microcytic hypochromic anemia without overt GI bleeding and positive stool Hemoccult test. Patient is being transfused 2 units of packed red blood cells in the ED. He is chemically restrain with Haldol Patient has had 3 upper endoscopies in the past 2 years. Last upper endoscopy a year ago showed a hiatal hernia and severe erosive esophagitis - patient failed to follow up in the GI clinic. RECOMMENDATIONS: 1. Monitor H&H post transfusion. 2. IV PPI 3. If H&H remained stable patient can be treated with the high-dose PPI for erosive esophagitis. 4. Further evaluation with an upper endoscopy can be considered if he has over GI bleeding or a decreasing H&H. Dr Horner on-call for [facility] from 03/01 to 03/06/21 Procedures Date of Service Date of Service: 02/28/21
--- NOTE | 2021-02-28 19:49 | PC.NURSE ---
1948 50MG NICOLA PUSHED. BLOOD STOPPED AT THIS TIME.
--- NOTE | 2021-02-28 19:55 | PC.NURSE ---
BLOOD RESTARTED AT THIS TIME.
--- NOTE | 2021-02-28 19:56 | PC.NURSE ---
CENTRAL LINE PLACED.
[2021-02-28 20:04] LABS: MANUAL DIFF FLAG NO
[2021-02-28 20:05] LABS: Basophils Percent Auto 0.3 % (0-2); Eosinophils Percent Auto 0.5 % (0-4); Hematocrit 22.3 % (42-52); Imm Gran Abs Auto 0.01 X10*3/uL (0.00-0.03); Imm Gran Pct Auto 0.2 % (0.0-0.4); Lymphocytes Absolute Auto 0.7 X10*3/uL (1.2-4.9); Lymphocytes Percent Auto 10.2 % (20-40); Mean Corpuscular Hemoglobin 23.1 pg (27.0-33.0); Mean Corpuscular Volume 76.9 fL (80-98); Monocytes Absolute Auto 0.5 X10*3/uL (0.1-1.2); Monocytes Percent Auto 7.8 % (2-11); Neutrophils Absolute Auto 5.2 X10*3/uL (2.0-8.3); Platelet Count 262 X10*3/uL (160-400); Red Cell Distribution Width 21.8 % (11.0-16.0); White Blood Count 6.4 X10*3/uL (4.8-10.8)
[2021-02-28 20:09] LABS: Hemoglobin 6.7 g/dl (14.0-18.0)
--- NOTE | 2021-02-28 20:13 | W.PM.CCHP ---
Procedures Central Line Placement Right IJ: Central Line Comments: venous access needed Consent for Procedure: Emergent-no informed consent obtained Time out performed: Yes Sterile Technique Used: Yes Patient placed on monitor/pulse ox: Yes MD prep: mask, gown and gloves Central line prep: Chlorhexidine scrub Ultrasound used for placement: Yes Central line lumen inserted: triple Post procedure: sutured in place, good blood return, all ports aspirated, flushed, capped and sterile dressing applied Post procedure x-ray: tip of catheter in good position and no pneumothorax seen Patient tolerated procedure: well and no complications Complications: none Intubation Intubation Comments: pt obtunded, vomiting Sedative: etomidate Mg given: 20 Paralytic: rocuronium Mg given: 50 Laryngoscope: fiber optic video scope ET tube size: 7.5 Tube placement confirmation: visualized tube passing through cords, equal breath sounds bilaterally, no breath sounds over epigastrium and confirmation by capnometry Patient tolerated procedure: well and no complications Intubation complications: none
[2021-02-28 20:16] LABS: Amphetamine Screen Urine Not Detected (Not Detect); Barbiturates, Urine Not Detected (Not Detect); Benzodiazepines Screen Urine Not Detected (Not Detect); Cannabinoid Screen Urine POSITIVE (Not Detect); Cocaine Screen Urine POSITIVE (Not Detect); Opiate Screen Urine POSITIVE (Not Detect); Phencyclidine Screen Urine Not Detected (Not Detect)
--- NOTE | 2021-02-28 20:21 | PM.CCHP ---
History of Present Illness Date of Service: 02/28/21 Chief Complaint: GIB & Polysubstance abuse Pt is a 40yo Male with a past med hx of GERD with esophagitis, polysubstance (self reports crack, heroin, not ETOH) abuse who presents to the ED saying I haven't slept in 6 days I feel out of it my body is not okay , no SI but did just leave detox after a section 35 a month ago. Pt also had anxiety, racing thoughts and swollen ankles. During his ED stay, he was belligerent, using profanity, he vomited 4x, thin brown liquid. Labs were sig for hg 6.1, 2U PRBC's ordered, IV protonix ordered, endoscopy on 04/02 no varices noted. GI consult appreciated. Pt given Ativan for his restlessness. Pt continued to become agitated, pt vomited again, large reddish liquid with small flecks of blood. Pt then given ativan, haldol and zofran, all IV. 90 mins later, the pt's O2 requirements were increasing, to maintain sat of 92%, ? aspiration pneumonitis, CXR showed increased interstitial markings, pt also using accessory muscles to breath and grunting, not awake. Concern for managing his airway, decided to intubate. I intubated pt with Dr Julio at the bedside. Pt will be brought to the ICU for mgmt of his GI bleed and w/d from polysubstance abuse. Review of Systems Review of Systems: Pt intubated and sedated [facility] Past Medical History Medical History Drug abuse Liver disease Social History Social History Household Members: None Housing: Homeless Do you presently have visiting nurse or other home services: No Unable to assess alcohol history related to: Unable to respond and Unknown Alcohol intake: current Alcohol intake frequency: 0-2 drinks per day Alcohol type: beer Patient Tobacco Use Status: Current someday Tobacco user Tobacco use type: Cigarette Smoked in Last 30 Days: Yes Patient Interested in Nicotine Replacement: No Patient Given Instructions on How to Stop Smoking: No Use of substances other than those prescribed or required for medical reasons: Yes Substance Use Type: Crack/Cocaine, Heroin, Marijuana and Opiates Substance Use Frequency: Chronic Longstanding Last Used Substance: Just Prior to Admission Currently Displaying Signs/Symptoms of Drug Intoxication Withdrawal: No Advance Directives: No Advance Directives Information Provided: Yes Recently lost weight without trying: Unsure Nutrition Risks: No Nutritional Risk Poor oral hygiene: No service: No Current occupational status: unemployed Meds Allergies Allergy/AdvReac Type Severity Reaction Status Date / Time No Known Allergies Allergy Verified 09/12/20 05:49 [No Known Allergies*] Active Medications: Current Medications Generic Name Dose Route Start Last Admin Trade Name Frenyasia PRN Reason Stop Dose Admin Heparin Sodium (Porcine) 5,000 unit 02/28/21 20:15 Heparin Sodium,Porcine 5,000 Unit/Ml Vial SUBCUT Q12H DARÍO Pantoprazole Sodium 80 mg/ 100 mls @ 10 mls/hr 02/28/21 16:00 02/28/21 16:00 Sodium Chloride IV 8 mg/hr .Q10H DARÍO 10 mls/hr Administration 8 MG/HR Propofol 1,000 mg in 100 mls @ 0 mls/hr 02/28/21 20:15 Diprivan IVCONT .Q0M DARÍO Protocol Per Protocol Ceftriaxone Sodium 1 gm/ 50 mls @ 100 mls/hr 02/28/21 20:15 Sodium Chloride IV Q24H DARÍO Norepinephrine Bitartrate 8 mg in 250 mls @ 0 mls/hr 02/28/21 20:15 Levophed IVCONT .Q0M DARÍO Protocol Per Protocol Home Medications Medication Instructions Recorded Confirmed Last Taken Type No Known Home Meds 02/28/21 02/28/21 Unknown History Physical Exam Vital Signs: Vital Signs: Last Vital Signs Temp 97.5 F 02/28/21 19:53 Pulse 85 02/28/21 19:53 Resp 18 02/28/21 19:53 BP 133/83 02/28/21 19:53 Pulse Ox 99 02/28/21 19:53 Body Mass Index 25.8 Const: General: well developed and patient obtunded Nutritional Appearance: average body habitus Orientation/consciousness: patient obtunded Limitations: altered mental status HENMT: Head: Yes normal to inspection Eyes: General: appearance normal, both eyes and all related structures Neck: Neck: Yes normal visual inspection Resp: Effort & Inspection: grunting and uses accessory muscles Auscultation: wheezes Cardio: Rate: regular rate Rhythm: regular rhythm Heart sounds: normal S1 and S2 GI: Inspection: Yes normal to inspection Palpation (GI): Soft to palpation and nontender Skin: General skin exam: no rashes or lesions noted Neuro: General: patient obtunded Extrem: General: Yes pedal edema (2+ bilaterally) Results Labs CBC and Chem 7: 03/02/21 05:14 03/02/21 05:14 Labs: Laboratory Results - last 24 hr 02/28/21 02/28/21 02/28/21 15:23 15:23 16:01 MCV 73.1 L MCH 20.5 L MCHC 28.1 L RDW 18.8 H Plt Count 351 D MPV 10.7 Immature Gran % (Auto) 0.4 Neut % (Auto) 85.0 H Lymph % (Auto) 6.3 L [place] % (Auto) 7.5 Eos % (Auto) 0.6 Baso % (Auto) 0.2 Lymph # (Auto) 0.6 L [place] # (Auto) 0.7 Eos # (Auto) 0.1 Baso # (Auto) 0.0 Abs Immat Gran (auto) 0.04 H Absolute Neuts (auto) 7.9 Absolute Nucleated RBC 0.000 Nucleated RBC % (auto) 0.0 PT INR APTT Anion Gap 12 Estim Creat Clear Calc 58.0 Estimated GFR 51 Random Glucose 109 D Calcium 8.5 D Magnesium Iron 11 L TIBC 351 % Saturation 3 L Unsat Iron Binding 340 Ferritin 4 L Total Bilirubin 0.5 Direct Bilirubin 0.2 AST 33 D ALT 22 Alkaline Phosphatase 75 Ammonia Total Protein 6.5 Albumin 3.8 Stool Occult Blood Urine Opiates Screen Ur Barbiturates Screen Ur Phencyclidine Scrn Ur Amphetamines Screen U Benzodiazepines Scrn Urine Cocaine Screen U Marijuana (THC) Screen Ethyl Alcohol COVID-19 ([facility]) Negative COVID-19 Clin Com See Note Blood Type Antibody Screen Crossmatch 02/28/21 02/28/21 02/28/21 16:11 16:11 16:11 MCV MCH MCHC RDW Plt Count MPV Immature Gran % (Auto) Neut % (Auto) Lymph % (Auto) [place] % (Auto) Eos % (Auto) Baso % (Auto) Lymph # (Auto) [place] # (Auto) Eos # (Auto) Baso # (Auto) Abs Immat Gran (auto) Absolute Neuts (auto) Absolute Nucleated RBC Nucleated RBC % (auto) PT INR APTT Anion Gap Estim Creat Clear Calc Estimated GFR Random Glucose Calcium Magnesium Iron TIBC % Saturation Unsat Iron Binding Ferritin Total Bilirubin Direct Bilirubin AST ALT Alkaline Phosphatase Ammonia Total Protein Albumin Stool Occult Blood POSITIVE Urine Opiates Screen Ur Barbiturates Screen Ur Phencyclidine Scrn Ur Amphetamines Screen U Benzodiazepines Scrn Urine Cocaine Screen U Marijuana (THC) Screen Ethyl Alcohol < 10 COVID-19 ([facility]) COVID-19 Clin Com Blood Type B Positive Antibody Screen NEGATIVE Crossmatch See Detail 02/28/21 02/28/21 02/28/21 16:12 16:12 18:38 MCV MCH MCHC RDW Plt Count MPV Immature Gran % (Auto) Neut % (Auto) Lymph % (Auto) [place] % (Auto) Eos % (Auto) Baso % (Auto) Lymph # (Auto) [place] # (Auto) Eos # (Auto) Baso # (Auto) Abs Immat Gran (auto) Absolute Neuts (auto) Absolute Nucleated RBC Nucleated RBC % (auto) PT 13.5 H INR 1.1 APTT 28.2 Anion Gap Estim Creat Clear Calc Estimated GFR Random Glucose Calcium Magnesium 2.0 Iron TIBC % Saturation Unsat Iron Binding Ferritin Total Bilirubin Direct Bilirubin AST ALT Alkaline Phosphatase Ammonia 61 H Total Protein Albumin Stool Occult Blood Urine Opiates Screen Ur Barbiturates Screen Ur Phencyclidine Scrn Ur Amphetamines Screen U Benzodiazepines Scrn Urine Cocaine Screen U Marijuana (THC) Screen Ethyl Alcohol COVID-19 ([facility]) COVID-19 Clin Com Blood Type Antibody Screen Crossmatch 02/28/21 02/28/21 19:46 19:58 MCV 76.9 L MCH 23.1 L MCHC 30.0 L RDW 21.8 H Plt Count 262 D MPV 10.0 Immature Gran % (Auto) 0.2 Neut % (Auto) 81.0 H Lymph % (Auto) 10.2 L [place] % (Auto) 7.8 Eos % (Auto) 0.5 Baso % (Auto) 0.3 Lymph # (Auto) 0.7 L [place] # (Auto) 0.5 Eos # (Auto) 0.0 Baso # (Auto) 0.0 Abs Immat Gran (auto) 0.01 Absolute Neuts (auto) 5.2 Absolute Nucleated RBC 0.000 Nucleated RBC % (auto) 0.0 PT INR APTT Anion Gap Estim Creat Clear Calc Estimated GFR Random Glucose Calcium Magnesium Iron TIBC % Saturation Unsat Iron Binding Ferritin Total Bilirubin Direct Bilirubin AST ALT Alkaline Phosphatase Ammonia Total Protein Albumin Stool Occult Blood Urine Opiates Screen POSITIVE H Ur Barbiturates Screen Not Detected Ur Phencyclidine Scrn Not Detected Ur Amphetamines Screen Not Detected U Benzodiazepines Scrn Not Detected Urine Cocaine Screen POSITIVE H U Marijuana (THC) Screen POSITIVE H Ethyl Alcohol COVID-19 ([facility]) COVID-19 Clin Com Blood Type Antibody Screen Crossmatch Imaging Radiologist's Impressions: Impressions Chest X-Ray 02/28/21 17:33 IMPRESSION: Upper normal-size cardiac silhouette. Increased perihilar lung markings questionable for airways disease/pneumonia versus mild pulmonary edema. Clinical correlation recommended. Assessment and Plan (1) GIB (gastrointestinal bleeding): Qualifiers: GI bleed type/associated pathology: unspecified gastrointestinal hemorrhage type Qualified Code(s): K92.2 - Gastrointestinal hemorrhage, unspecified Status: Acute type and screen done, 2u PRBC's ordered, will monitor CBC, GI consult appreciated by ED (2) GERD with esophagitis: Status: Acute IV protonix (3) Polysubstance abuse: Status: Acute Pt intubated and sedated, on propofol and will add fentanyl (4) Anemia: Qualifiers: Anemia type: unspecified type Qualified Code(s): D64.9 - Anemia, unspecified Status: Acute type and screen done, 2u PRBC's ordered, will monitor CBC, GI consult appreciated by ED (5) Aspiration pneumonitis: Status: Acute 1g IV ceftriaxone started Q24H, Duoneb prn wheezing, will monitor status
[2021-02-28 20:23] LABS: Amylase 60 U/L (28-100)
[2021-02-28 20:28] LABS: Lactic Acid 0.5 mmol/L (0.5-2.0)
[2021-02-28 20:31] LABS: Acetaminophen LAB < 1 mcg/mL (<30)
[2021-02-28 20:36] LABS: Alanine Aminotransferase 26 U/L (0-40); Albumin Level 3.2 g/dL (3.5-5.0); Alkaline Phosphatase 59 U/L (39-117); Anion Gap 7 (12-20); Aspartate Amino Transferase 37 U/L (5-37); Bilirubin Total 1.3 mg/dL (0.0-1.0); Blood Urea Nitrogen 17 mg/dL (9-16); Calcium 7.2 mg/dL (8.4-10.2); Carbon Dioxide 26 mmol/L (22-29); Chloride 107 mmol/L (96-108); Creatinine Clr Calc Pharmacy 91.3; Estimated Glomerular Filt Rate > 60; Glucose Random 107 mg/dL (60-115); Lipase 29 U/L (8-78); Potassium 4.3 mmol/L (3.3-5.1); Salicylate < 5.0 mg/dL (15-30); Sodium 136 mmol/L (135-145); Total Protein 5.2 g/dL (6.5-8.0)
--- NOTE | 2021-02-28 20:43 | W.PM.CCHP ---
Procedures Date of Service Date of Service: 02/28/21 Intubation Intubation Comments: pt unable to manage airway, obtunded and vomiting Sedative: etomidate Mg given: 20 Paralytic: rocuronium Mg given: 50 Laryngoscope: fiber optic video scope ET tube size: 7.5 Tube placement confirmation: visualized tube passing through cords, equal breath sounds bilaterally, no breath sounds over epigastrium and confirmation by capnometry Patient tolerated procedure: well and no complications Intubation complications: none
--- NOTE | 2021-02-28 20:44 | W.PM.CCHP ---
Procedures Date of Service Date of Service: 02/28/21 Central Line Placement Right IJ: Central Line Comments: venous access Consent for Procedure: Emergent-no informed consent obtained Time out performed: Yes Sterile Technique Used: Yes Patient placed on monitor/pulse ox: Yes MD prep: mask, gown and gloves Central line prep: Chlorhexidine scrub Ultrasound used for placement: Yes Central line lumen inserted: triple Post procedure: sutured in place, good blood return, all ports aspirated, flushed, capped and sterile dressing applied Post procedure x-ray: tip of catheter in good position and no pneumothorax seen Patient tolerated procedure: well and no complications Complications: none
[2021-02-28] MEDS: cefTRIAXone sodium 1 GM in 0.9 % Sodium Chloride 50 ML IV (20:50)
[2021-02-28] MEDS: Heparin Sodium,Porcine 5,000 UNIT/ML VIAL 5000 UNIT SUBCUT (20:52)
[2021-02-28 20:54] LABS: Venous Blood Gas Refer to POC result
[2021-02-28 20:55] LABS: VBG Base Excess 0.9 mmol/L; VBG HCO3 28 mmol/L (22-26); VBG pCO2 63 mmHg; VBG pH 7.26 (7.32-7.43); VBG pO2 49 mmHg
[2021-02-28 21:12] LABS: C Reactive Protein 4.46 mg/dL (< or = 0.50)
--- NOTE | 2021-02-28 21:17 | PC.NURSE ---
pt to ct at this time
[2021-02-28 21:33] LABS: Procalcitonin 0.04 ng/mL
[2021-02-28] MEDS: propofoL 1,000 MG/100 ML VIAL 13.06 MG IVCONT (21:54)
[2021-02-28] MEDS: Chlorhexidine Gluc Oral Rinse 15 ML MOUTHWASH BUCCAL (21:55)
[2021-02-28 21:58] LABS: Erythrocyte Sedimentation Rate 7 MM/HR (0-15)
[2021-02-28] MEDS: Albuterol/Iprat 2.5/0.5MG 3 ML AMPUL.NEB INHALE (22:14)
--- NOTE | 2021-02-28 22:50 | PC.NURSE ---
Pt to ICU at 2130 from ED. ETT in place at 26 cm ata at the lip. Vent settings: AC 18, TV 450, PEEP 5 and 60% O2. OGT in good placement. Ochoa emtied for 100 ml. Monitor shows NSR, rate 70's. BP 160/74, 153/75. Propofol drip at 30 mcg/kg/min on arrival to ICU but increased to 40 mcg for sedation/vent control. Pantoprazole drip as ordered. To start on LR at 150 ml/hr pending BNP level which was added on to previous bloodwork drawn. Lower extremity edema noted 1 to 2+.
[2021-02-28 22:51] LABS: B Type Natriuretic Peptide 250 pg/mL (<100)
[2021-02-28 23:06] LABS: HIV AB/AG Nonreactive (Nonreactive); HIV Num 1 0.07 S/CO (0.00-0.99)
[2021-02-28] MEDS: Lactated Ringers 1,000 ML 150 ML IVCONT (23:28)
[2021-03-01] VITALS (31 sets, daily range): BP systolic 127–162; BP diastolic 54–92; PULSE 61–91; RESP 14–24; TEMP 35.5–37.4; O2SAT 93–100; BMI 29.2
[2021-03-01 00:55] LABS: MANUAL DIFF FLAG NO
[2021-03-01 00:58] LABS: Basophils Percent Auto 0.4 % (0-2); Eosinophils Absolute Auto 0.1 X10*3/uL (0.0-0.4); Eosinophils Percent Auto 1.2 % (0-4); Hemoglobin 7.9 g/dl (14.0-18.0); Imm Gran Abs Auto 0.01 X10*3/uL (0.00-0.03); Imm Gran Pct Auto 0.2 % (0.0-0.4); Mean Corpuscular HGB Conc 30.4 g/dl (31.0-36.0); Mean Platelet Volume 9.9 fL (9.4-12.4); Monocytes Absolute Auto 0.5 X10*3/uL (0.1-1.2); Monocytes Percent Auto 10.5 % (2-11); Neutrophils Absolute Auto 3.5 X10*3/uL (2.0-8.3); Neutrophils Percent Auto 67.7 % (45-73); Platelet Count 227 X10*3/uL (160-400); Red Blood Count 3.29 X10*6/uL (4.60-5.80); Red Cell Distribution Width 21.2 % (11.0-16.0); White Blood Count 5.2 X10*3/uL (4.8-10.8)
[2021-03-01 03:47] LABS: HBS Num1 123.86 mIU/mL (0-7.99); HBc Num1 0.09 S/CO (0.00-0.79); Hepatitis A Antibody IgM 0.19 Index (0-0.79); Hepatitis B Core Antibody Nonreactive (Nonreactive); ~HepC Num1 11.48 S/CO (0.00-0.79); ~Hepatitis A Antibody IgM Nonreactive (Nonreactive); ~Hepatitis B Surface Antibody REACTIVE (Nonreactive); ~Hepatitis C Antibody Reactive (Nonreactive)
[2021-03-01 03:59] LABS: HBsAGNum1 0.25 S/CO (0.00-0.99); Hepatitis B Surface Antigen Negative (Negative)
[2021-03-01] MEDS: propofoL 1,000 MG/100 ML VIAL 17.42 MG IVCONT ×2 (04:24→08:15)
[2021-03-01 05:15] LABS: VBG Base Excess 2.2 mmol/L; VBG HCO3 27 mmol/L (22-26); VBG pCO2 47 mmHg; VBG pH 7.37 (7.32-7.43); VBG pO2 51 mmHg
[2021-03-01 05:16] LABS: Venous Blood Gas Refer to POC result
[2021-03-01 05:30] LABS: MANUAL DIFF FLAG NO
[2021-03-01 05:32] LABS: Basophils Percent Auto 0.7 % (0-2); Eosinophils Absolute Auto 0.1 X10*3/uL (0.0-0.4); Eosinophils Percent Auto 1.8 % (0-4); Hemoglobin 7.8 g/dl (14.0-18.0); Imm Gran Abs Auto 0.01 X10*3/uL (0.00-0.03); Imm Gran Pct Auto 0.2 % (0.0-0.4); Lymphocytes Absolute Auto 0.9 X10*3/uL (1.2-4.9); Lymphocytes Percent Auto 20.6 % (20-40); Mean Corpuscular Hemoglobin 23.9 pg (27.0-33.0); Mean Corpuscular Volume 79.8 fL (80-98); Mean Platelet Volume 10.6 fL (9.4-12.4); Monocytes Absolute Auto 0.5 X10*3/uL (0.1-1.2); Monocytes Percent Auto 10.4 % (2-11); NRBC Pct Auto 0.4 /100WBC (0.0-0.2); Neutrophils Percent Auto 66.3 % (45-73); Platelet Count 236 X10*3/uL (160-400); Red Blood Count 3.26 X10*6/uL (4.60-5.80); Red Cell Distribution Width 21.1 % (11.0-16.0); White Blood Count 4.5 X10*3/uL (4.8-10.8)
[2021-03-01] MEDS: Lactated Ringers 1,000 ML 150 ML IVCONT (05:35)
[2021-03-01 05:39] LABS: INTERNATIONAL NORM RATIO 1.1 (0.9-1.1); Prothrombin Time 13.4 SEC (10.8-13.0)
[2021-03-01 05:42] LABS: Partial Thromboplastin Time 27.3 SEC (24.1-38.0)
[2021-03-01 05:56] LABS: Alanine Aminotransferase 21 U/L (0-40); Albumin Level 2.7 g/dL (3.5-5.0); Alkaline Phosphatase 52 U/L (39-117); Anion Gap 11 (12-20); Aspartate Amino Transferase 27 U/L (5-37); Bilirubin Direct 0.4 mg/dL (0.0-0.5); Bilirubin Total 0.7 mg/dL (0.0-1.0); Blood Urea Nitrogen 12 mg/dL (9-16); Calcium 7.2 mg/dL (8.4-10.2); Carbon Dioxide 25 mmol/L (22-29); Chloride 107 mmol/L (96-108); Creatinine Clr Calc Pharmacy 106.9; Estimated Glomerular Filt Rate > 60; Glucose Random 81 mg/dL (60-115); Phosphorus 1.8 mg/dL (2.7-4.5); Potassium 3.8 mmol/L (3.3-5.1); Sodium 139 mmol/L (135-145); Total Protein 4.6 g/dL (6.5-8.0)
[2021-03-01 05:58] LABS: B Type Natriuretic Peptide 219 pg/mL (<100)
--- NOTE | 2021-03-01 06:09 | PC.NURSE ---
No resp difficulties on vent overnight. O2 sat 99-100% on fio2 of 30%. Good sedation effect on propofol. Vitals stable. LR at 150 ml/hr. U/O 50-15 ml/hr. Monitor shows NSR, rate 70's.
[2021-03-01] MEDS: Pantoprazole Sodium 80 MG in 0.9 % Sodium Chloride 80 ML 10 MG IV ×2 (08:50→17:56)
[2021-03-01] MEDS: Heparin Sodium,Porcine 5,000 UNIT/ML VIAL 5000 UNIT SUBCUT (08:58)
[2021-03-01] MEDS: Chlorhexidine Gluc Oral Rinse 15 ML MOUTHWASH BUCCAL ×3 (08:58→19:24)
[2021-03-01 11:33] LABS: Glucose, Whole Blood 78 mg/dL (60-115)
--- NOTE | 2021-03-01 12:32 | MHC.CM.PN ---
pt is in the icu - vented and sedated. it appears hans patient was living c his mother in her home in [place]. his mother, maryse matthews , is his hcp. the hcp on file has a different contact ph # than the one in the emr. the phone number in the emr for pt's mother is [phone]. at some point prior to dc the patient would benefit from a care team consult. dc plan will likely be back to his mothers home no other svcs. however, pt was recently dc'd from a sect[facility] so there is a possibility that patient could have this happen again. cm to cont. to follow.
[2021-03-01] MEDS: propofoL 1,000 MG/100 ML VIAL 21.77 MG IVCONT ×4 (12:51→23:58)
[2021-03-01] MEDS: Lactated Ringers 1,000 ML 125 ML IVCONT ×2 (12:51→19:24)
--- NOTE | 2021-03-01 17:19 | P.PNCC_ITS ---
Subjective Subjective Date of Service: 03/01/21 Interval History: 40-year-old male polysubstance abuser came in with rapidly progressing agitated delirium then became obtunded on sedation unable to protect airway due to low GCS score required intubation in addition the end of course airway protection because of vomiting In addition was profoundly anemic clearly has been bleeding on a chronic basis no acute large volume blood loss transfuse 3 units of packed red cells currently with a hemoglobin in the high 6 is and stable stable on propofol on the ventilator doing very well Critical Care Time (minutes): 45 Physical Exam Vital Signs: Vital Signs: Last Vital Signs Temp 98.6 F 03/01/21 16:00 Pulse 71 03/01/21 16:00 Resp 18 03/01/21 16:00 BP 159/77 H 03/01/21 16:00 Pulse Ox 100 03/01/21 16:00 Body Mass Index 29.2 Const: Other: Sedated and intubated Stable vital signs in normal sinus rhythm with no ST-T changes No neck vein distension and good bilateral carotid upstrokes no murmurs or gallops Abdomen benign no organomegaly good bowel sounds tolerating feedings Chest with minimal bilateral scattered rales consistent with the ventilator Skin intact with no livedo Objective Data Labs CBC & Chem 7: 03/02/21 05:14 03/02/21 05:14 Labs: Laboratory Results - last 24 hr 02/28/21 02/28/21 02/28/21 15:23 16:11 18:38 WBC RBC Hgb Hct MCV MCH MCHC RDW Plt Count MPV Immature Gran % (Auto) Neut % (Auto) Lymph % (Auto) Archer % (Auto) Eos % (Auto) Baso % (Auto) Lymph # (Auto) Archer # (Auto) Eos # (Auto) Baso # (Auto) Abs Immat Gran (auto) Absolute Neuts (auto) Absolute Nucleated RBC Nucleated RBC % (auto) ESR PT INR APTT VBG pH VBG pCO2 VBG pO2 VBG HCO3 VBG O2 Saturation VBG Base Excess Sodium Potassium Chloride Carbon Dioxide Anion Gap BUN Creatinine Estim Creat Clear Calc Estimated GFR POC Glucose Random Glucose Lactic Acid Calcium Phosphorus Iron 11 L TIBC 351 % Saturation 3 L Unsat Iron Binding 340 Ferritin 4 L Total Bilirubin Direct Bilirubin AST ALT Alkaline Phosphatase Ammonia 61 H C-Reactive Protein B-Natriuretic Peptide Total Protein Albumin Amylase Lipase Procalcitonin Salicylates Urine Opiates Screen Acetaminophen Ur Barbiturates Screen Ur Phencyclidine Scrn Ur Amphetamines Screen U Benzodiazepines Scrn Urine Cocaine Screen U Marijuana (THC) Screen Hepatitis A IgM Ab Hep Bs Antigen Hep Bs Antibody Hep B Core Total Ab Hepatitis C Ab (EIA) HIV 1&2 Ab/P24 Ag 4thGn Blood Type B Positive Antibody Screen NEGATIVE Crossmatch See Detail 02/28/21 02/28/21 02/28/21 19:46 19:58 19:58 WBC 6.4 RBC 2.90 L Hgb 6.7 L* Hct 22.3 L MCV 76.9 L MCH 23.1 L MCHC 30.0 L RDW 21.8 H Plt Count 262 D MPV 10.0 Immature Gran % (Auto) 0.2 Neut % (Auto) 81.0 H Lymph % (Auto) 10.2 L Archer % (Auto) 7.8 Eos % (Auto) 0.5 Baso % (Auto) 0.3 Lymph # (Auto) 0.7 L Archer # (Auto) 0.5 Eos # (Auto) 0.0 Baso # (Auto) 0.0 Abs Immat Gran (auto) 0.01 Absolute Neuts (auto) 5.2 Absolute Nucleated RBC 0.000 Nucleated RBC % (auto) 0.0 ESR PT INR APTT VBG pH VBG pCO2 VBG pO2 VBG HCO3 VBG O2 Saturation VBG Base Excess Sodium Potassium Chloride Carbon Dioxide Anion Gap BUN Creatinine Estim Creat Clear Calc Estimated GFR POC Glucose Random Glucose Lactic Acid Calcium Phosphorus Iron TIBC % Saturation Unsat Iron Binding Ferritin Total Bilirubin Direct Bilirubin AST ALT Alkaline Phosphatase Ammonia C-Reactive Protein B-Natriuretic Peptide Total Protein Albumin Amylase 60 Lipase Procalcitonin Salicylates Urine Opiates Screen POSITIVE H Acetaminophen Ur Barbiturates Screen Not Detected Ur Phencyclidine Scrn Not Detected Ur Amphetamines Screen Not Detected U Benzodiazepines Scrn Not Detected Urine Cocaine Screen POSITIVE H U Marijuana (THC) Screen POSITIVE H Hepatitis A IgM Ab Hep Bs Antigen Hep Bs Antibody Hep B Core Total Ab Hepatitis C Ab (EIA) HIV 1&2 Ab/P24 Ag 4thGn Blood Type Antibody Screen Crossmatch 02/28/21 02/28/21 02/28/21 19:58 19:58 19:58 WBC RBC Hgb Hct MCV MCH MCHC RDW Plt Count MPV Immature Gran % (Auto) Neut % (Auto) Lymph % (Auto) Archer % (Auto) Eos % (Auto) Baso % (Auto) Lymph # (Auto) Archer # (Auto) Eos # (Auto) Baso # (Auto) Abs Immat Gran (auto) Absolute Neuts (auto) Absolute Nucleated RBC Nucleated RBC % (auto) ESR PT INR APTT VBG pH VBG pCO2 VBG pO2 VBG HCO3 VBG O2 Saturation VBG Base Excess Sodium 136 Potassium 4.3 Chloride 107 Carbon Dioxide 26 Anion Gap 7 L BUN 17 H Creatinine 0.96 Estim Creat Clear Calc 91.3 Estimated GFR > 60 POC Glucose Random Glucose 107 Lactic Acid 0.5 Calcium 7.2 L D Phosphorus Iron TIBC % Saturation Unsat Iron Binding Ferritin Total Bilirubin 1.3 H Direct Bilirubin AST 37 ALT 26 Alkaline Phosphatase 59 D Ammonia C-Reactive Protein B-Natriuretic Peptide Total Protein 5.2 L Albumin 3.2 L Amylase Lipase 29 Procalcitonin Salicylates < 5.0 L Urine Opiates Screen Acetaminophen < 1 Ur Barbiturates Screen Ur Phencyclidine Scrn Ur Amphetamines Screen U Benzodiazepines Scrn Urine Cocaine Screen U Marijuana (THC) Screen Hepatitis A IgM Ab Hep Bs Antigen Hep Bs Antibody Hep B Core Total Ab Hepatitis C Ab (EIA) HIV 1&2 Ab/P24 Ag 4thGn Blood Type Antibody Screen Crossmatch 02/28/21 02/28/21 02/28/21 19:58 20:46 20:47 WBC RBC Hgb Hct MCV MCH MCHC RDW Plt Count MPV Immature Gran % (Auto) Neut % (Auto) Lymph % (Auto) Archer % (Auto) Eos % (Auto) Baso % (Auto) Lymph # (Auto) Archer # (Auto) Eos # (Auto) Baso # (Auto) Abs Immat Gran (auto) Absolute Neuts (auto) Absolute Nucleated RBC Nucleated RBC % (auto) ESR 7 PT INR APTT VBG pH VBG pCO2 VBG pO2 VBG HCO3 VBG O2 Saturation VBG Base Excess Sodium Potassium Chloride Carbon Dioxide Anion Gap BUN Creatinine Estim Creat Clear Calc Estimated GFR POC Glucose Random Glucose Lactic Acid Calcium Phosphorus Iron TIBC % Saturation Unsat Iron Binding Ferritin Total Bilirubin Direct Bilirubin AST ALT Alkaline Phosphatase Ammonia C-Reactive Protein 4.46 H B-Natriuretic Peptide 250 H Total Protein Albumin Amylase Lipase Procalcitonin Salicylates Urine Opiates Screen Acetaminophen Ur Barbiturates Screen Ur Phencyclidine Scrn Ur Amphetamines Screen U Benzodiazepines Scrn Urine Cocaine Screen U Marijuana (THC) Screen Hepatitis A IgM Ab Hep Bs Antigen Hep Bs Antibody Hep B Core Total Ab Hepatitis C Ab (EIA) HIV 1&2 Ab/P24 Ag 4thGn Blood Type Antibody Screen Crossmatch 02/28/21 02/28/21 02/28/21 20:47 20:47 20:48 WBC RBC Hgb Hct MCV MCH MCHC RDW Plt Count MPV Immature Gran % (Auto) Neut % (Auto) Lymph % (Auto) Archer % (Auto) Eos % (Auto) Baso % (Auto) Lymph # (Auto) Archer # (Auto) Eos # (Auto) Baso # (Auto) Abs Immat Gran (auto) Absolute Neuts (auto) Absolute Nucleated RBC Nucleated RBC % (auto) ESR PT INR APTT VBG pH 7.26 L VBG pCO2 63 VBG pO2 49 VBG HCO3 28 H VBG O2 Saturation 73.0 VBG Base Excess 0.9 Sodium Potassium Chloride Carbon Dioxide Anion Gap BUN Creatinine Estim Creat Clear Calc Estimated GFR POC Glucose Random Glucose Lactic Acid Calcium Phosphorus Iron TIBC % Saturation Unsat Iron Binding Ferritin Total Bilirubin Direct Bilirubin AST ALT Alkaline Phosphatase Ammonia C-Reactive Protein B-Natriuretic Peptide Total Protein Albumin Amylase Lipase Procalcitonin 0.04 Salicylates Urine Opiates Screen Acetaminophen Ur Barbiturates Screen Ur Phencyclidine Scrn Ur Amphetamines Screen U Benzodiazepines Scrn Urine Cocaine Screen U Marijuana (THC) Screen Hepatitis A IgM Ab Nonreactive Hep Bs Antigen Negative Hep Bs Antibody REACTIVE Hep B Core Total Ab Nonreactive Hepatitis C Ab (EIA) Reactive H HIV 1&2 Ab/P24 Ag 4thGn Nonreactive Blood Type Antibody Screen Crossmatch 03/01/21 03/01/21 03/01/21 00:48 05:07 05:08 WBC 5.2 RBC 3.29 L Hgb 7.9 L Hct 26.0 L MCV 79.0 L MCH 24.0 L MCHC 30.4 L RDW 21.2 H Plt Count 227 MPV 9.9 Immature Gran % (Auto) 0.2 Neut % (Auto) 67.7 Lymph % (Auto) 20.0 Archer % (Auto) 10.5 Eos % (Auto) 1.2 Baso % (Auto) 0.4 Lymph # (Auto) 1.0 L Archer # (Auto) 0.5 Eos # (Auto) 0.1 Baso # (Auto) 0.0 Abs Immat Gran (auto) 0.01 Absolute Neuts (auto) 3.5 Absolute Nucleated RBC 0.000 Nucleated RBC % (auto) 0.0 ESR PT INR APTT VBG pH 7.37 VBG pCO2 47 VBG pO2 51 VBG HCO3 27 H VBG O2 Saturation 84.0 VBG Base Excess 2.2 Sodium Potassium Chloride Carbon Dioxide Anion Gap BUN Creatinine Estim Creat Clear Calc Estimated GFR POC Glucose Random Glucose Lactic Acid Calcium Phosphorus Iron TIBC % Saturation Unsat Iron Binding Ferritin Total Bilirubin Direct Bilirubin AST ALT Alkaline Phosphatase Ammonia C-Reactive Protein B-Natriuretic Peptide 219 H Total Protein Albumin Amylase Lipase Procalcitonin Salicylates Urine Opiates Screen Acetaminophen Ur Barbiturates Screen Ur Phencyclidine Scrn Ur Amphetamines Screen U Benzodiazepines Scrn Urine Cocaine Screen U Marijuana (THC) Screen Hepatitis A IgM Ab Hep Bs Antigen Hep Bs Antibody Hep B Core Total Ab Hepatitis C Ab (EIA) HIV 1&2 Ab/P24 Ag 4thGn Blood Type Antibody Screen Crossmatch 03/01/21 03/01/21 03/01/21 05:08 05:08 05:08 WBC 4.5 L RBC 3.26 L Hgb 7.8 L Hct 26.0 L MCV 79.8 L MCH 23.9 L MCHC 30.0 L RDW 21.1 H Plt Count 236 MPV 10.6 Immature Gran % (Auto) 0.2 Neut % (Auto) 66.3 Lymph % (Auto) 20.6 Archer % (Auto) 10.4 Eos % (Auto) 1.8 Baso % (Auto) 0.7 Lymph # (Auto) 0.9 L Archer # (Auto) 0.5 Eos # (Auto) 0.1 Baso # (Auto) 0.0 Abs Immat Gran (auto) 0.01 Absolute Neuts (auto) 3.0 Absolute Nucleated RBC 0.020 H Nucleated RBC % (auto) 0.4 H ESR PT 13.4 H INR 1.1 APTT 27.3 VBG pH VBG pCO2 VBG pO2 VBG HCO3 VBG O2 Saturation VBG Base Excess Sodium 139 Potassium 3.8 Chloride 107 Carbon Dioxide 25 Anion Gap 11 L BUN 12 Creatinine 0.82 Estim Creat Clear Calc 106.9 Estimated GFR > 60 POC Glucose Random Glucose 81 Lactic Acid Calcium 7.2 L Phosphorus 1.8 L Iron TIBC % Saturation Unsat Iron Binding Ferritin Total Bilirubin 0.7 Direct Bilirubin 0.4 AST 27 ALT 21 Alkaline Phosphatase 52 Ammonia C-Reactive Protein B-Natriuretic Peptide Total Protein 4.6 L Albumin 2.7 L Amylase Lipase Procalcitonin Salicylates Urine Opiates Screen Acetaminophen Ur Barbiturates Screen Ur Phencyclidine Scrn Ur Amphetamines Screen U Benzodiazepines Scrn Urine Cocaine Screen U Marijuana (THC) Screen Hepatitis A IgM Ab Hep Bs Antigen Hep Bs Antibody Hep B Core Total Ab Hepatitis C Ab (EIA) HIV 1&2 Ab/P24 Ag 4thGn Blood Type Antibody Screen Crossmatch 03/01/21 11:29 WBC RBC Hgb Hct MCV MCH MCHC RDW Plt Count MPV Immature Gran % (Auto) Neut % (Auto) Lymph % (Auto) Archer % (Auto) Eos % (Auto) Baso % (Auto) Lymph # (Auto) Archer # (Auto) Eos # (Auto) Baso # (Auto) Abs Immat Gran (auto) Absolute Neuts (auto) Absolute Nucleated RBC Nucleated RBC % (auto) ESR PT INR APTT VBG pH VBG pCO2 VBG pO2 VBG HCO3 VBG O2 Saturation VBG Base Excess Sodium Potassium Chloride Carbon Dioxide Anion Gap BUN Creatinine Estim Creat Clear Calc Estimated GFR POC Glucose 78 Random Glucose Lactic Acid Calcium Phosphorus Iron TIBC % Saturation Unsat Iron Binding Ferritin Total Bilirubin Direct Bilirubin AST ALT Alkaline Phosphatase Ammonia C-Reactive Protein B-Natriuretic Peptide Total Protein Albumin Amylase Lipase Procalcitonin Salicylates Urine Opiates Screen Acetaminophen Ur Barbiturates Screen Ur Phencyclidine Scrn Ur Amphetamines Screen U Benzodiazepines Scrn Urine Cocaine Screen U Marijuana (THC) Screen Hepatitis A IgM Ab Hep Bs Antigen Hep Bs Antibody Hep B Core Total Ab Hepatitis C Ab (EIA) HIV 1&2 Ab/P24 Ag 4thGn Blood Type Antibody Screen Crossmatch Progress Note: A&P Assessment and plan (1) GERD with esophagitis: Status: Acute (2) Polysubstance abuse: Status: Acute (3) GIB (gastrointestinal bleeding): Status: Acute (4) Anemia: Status: Acute (5) Hypoxia: Status: Acute (6) Aspiration pneumonitis: Status: Acute (7) Altered mental status associated with intoxication: Status: Acute Assessment and Plan: Maintain sedation possibly adding benzodiazepine to the propofol and maintain ventilator as result until we feel he has exited his clinical withdrawal. And daily will assess cognitive function Quality Stroke Does the patient have a stroke diagnosis?: No Reason for No Anti-thrombotic by Day Two: Contraindicated VTE Prior VTE?: No VTE Risk Level:: Medical - moderate - high VTE Device Contraindication: N/A - Device Ordered VTE Drug Contraindication: Treatment Not Tolerated
[2021-03-01] MEDS: LORazepam 2 MG/ML VIAL 1 MG IVPUSH (17:42)
[2021-03-01] MEDS: cefTRIAXone sodium 1 GM in 0.9 % Sodium Chloride 50 ML IV (19:24)
--- NOTE | 2021-03-01 19:55 | PC.NURSE ---
Assumed care at 07:00. Patient is sedated on propofol, increased from 40-50 mcg/kg/min today, and patient still awakens and becomes combative and restless despite maximal propofol and restraints in use, added bite block; patient also oriented by nursing during care, and with any suctioning or oral care or turning would sit up and try nearly head-butt staff and try to self extubate repeatedly despite consoling, requiring multiple staff to help prevent his self-extubation; discussed with MD and new order for PRN ativan 1 mg Q4hrs, administered before nursing care with essentially no noticeable improvement; discussed with PA. Continued on vent #7.5 ETT is 26 cm jalyn, AC settings 18; TV 450; Peep 5; FiO2 30%; SpO2 has been 97-100%; minute volumes around 8.4 to occasional 10.4; EtCo2 was 46 this morning, down to 41 this evening; stacks breaths, overbreathes during periods of agitation up to rate about 27, but is synchronous at rest. Patient did have a dose of heparin this morning before it was discussed at rounds and discontinued wrt his GIB. Patient had 25 ccs of bileous residual prior to starting Jevity today at noon, well tolerated; no BM today. Pateint does appear to have edema R>L in his feet, 1+ in right foot. Patient appears to have a possible murmur, auscultated S1 murmur at Right sternal border, second intercostal space, discussed with MD.
[2021-03-02] VITALS (29 sets, daily range): BP systolic 140–162; BP diastolic 59–91; PULSE 67–95; RESP 19–30; TEMP 36.4–37.4; O2SAT 97–100; BMI 29.0
[2021-03-02] MEDS: Lactated Ringers 1,000 ML 125 ML IVCONT (02:46)
[2021-03-02] MEDS: Pantoprazole Sodium 80 MG in 0.9 % Sodium Chloride 80 ML 10 MG IV ×2 (03:16→14:39)
[2021-03-02] MEDS: propofoL 1,000 MG/100 ML VIAL 21.77 MG IVCONT ×7 (03:16→23:58)
--- NOTE | 2021-03-02 03:49 | PC.NURSE ---
Propofol running at max rate. Patient mostly synchronous with vent. Arouses easily spontaneously and with any stimulation. Very agitated when awake. Thrashes about in the bed, swinging at staff, reaching for endotube. Not redirectable. Does not follow commands. PRN ativan with no effect. Provider aware.
[2021-03-02 05:20] LABS: VBG Base Excess 6.3 mmol/L; VBG HCO3 31 mmol/L (22-26); VBG pCO2 46 mmHg; VBG pH 7.43 (7.32-7.43); VBG pO2 72 mmHg
[2021-03-02 06:02] LABS: MANUAL DIFF FLAG NO
[2021-03-02 06:07] LABS: Basophils Percent Auto 0.4 % (0-2); Eosinophils Absolute Auto 0.2 X10*3/uL (0.0-0.4); Eosinophils Percent Auto 2.7 % (0-4); Hematocrit 28.8 % (42-52); Hemoglobin 8.6 g/dl (14.0-18.0); Imm Gran Abs Auto 0.03 X10*3/uL (0.00-0.03); Imm Gran Pct Auto 0.4 % (0.0-0.4); Lymphocytes Absolute Auto 0.7 X10*3/uL (1.2-4.9); Mean Corpuscular HGB Conc 29.9 g/dl (31.0-36.0); Mean Corpuscular Hemoglobin 23.4 pg (27.0-33.0); Mean Corpuscular Volume 78.5 fL (80-98); Mean Platelet Volume 10.5 fL (9.4-12.4); Monocytes Absolute Auto 0.6 X10*3/uL (0.1-1.2); Monocytes Percent Auto 8.6 % (2-11); Neutrophils Absolute Auto 5.3 X10*3/uL (2.0-8.3); Neutrophils Percent Auto 77.9 % (45-73); Platelet Count 279 X10*3/uL (160-400); Red Blood Count 3.67 X10*6/uL (4.60-5.80); Red Cell Distribution Width 22.2 % (11.0-16.0); White Blood Count 6.8 X10*3/uL (4.8-10.8)
[2021-03-02 06:16] LABS: Prothrombin Time 12.3 SEC (10.8-13.0)
[2021-03-02 06:19] LABS: Partial Thromboplastin Time 27.2 SEC (24.1-38.0)
[2021-03-02 06:25] LABS: Venous Blood Gas Refer to POC result
[2021-03-02 06:51] LABS: Alanine Aminotransferase 18 U/L (0-40); Albumin Level 2.7 g/dL (3.5-5.0); Alkaline Phosphatase 56 U/L (39-117); Anion Gap 8 (12-20); Aspartate Amino Transferase 23 U/L (5-37); Bilirubin Direct 0.2 mg/dL (0.0-0.5); Bilirubin Total 0.2 mg/dL (0.0-1.0); Blood Urea Nitrogen 5 mg/dL (9-16); Calcium 7.6 mg/dL (8.4-10.2); Carbon Dioxide 29 mmol/L (22-29); Chloride 108 mmol/L (96-108); Creatinine Clr Calc Pharmacy 130.5; Estimated Glomerular Filt Rate > 60; Glucose Random 100 mg/dL (60-115); Phosphorus 2.2 mg/dL (2.7-4.5); Potassium 3.7 mmol/L (3.3-5.1); Sodium 141 mmol/L (135-145); Total Protein 4.8 g/dL (6.5-8.0)
[2021-03-02] MEDS: Chlorhexidine Gluc Oral Rinse 15 ML MOUTHWASH BUCCAL ×3 (07:34→20:16)
[2021-03-02] MEDS: LORazepam 2 MG/ML VIAL 1 MG IVPUSH (07:53)
[2021-03-02] MEDS: Midazolam HCl/PF 2 MG/2 ML VIAL 4 MG IVPUSH (09:40)
--- NOTE | 2021-03-02 10:00 | P.PNCC_ITS ---
Subjective Subjective Date of Service: 03/02/21 Interval History: 40-year-old polysubstance abuser inclusive of opiates and cocaine came in with altered mental status with agitated delirium requiring sedation subsequently had a GCS score that dropped down to 3 requiring intubation and deeper sedation and at this point we intend to maintain this until cognitive function show signs of improving and as of today still remains significantly agitated but metabolically seems to be stable and tolerating feedings Critical Care Time (minutes): 45 Physical Exam Vital Signs: Vital Signs: Last Vital Signs Temp 99.0 F 03/02/21 09:00 Pulse 77 03/02/21 09:00 Resp 23 H 03/02/21 09:00 BP 142/75 H 03/02/21 09:00 Pulse Ox 100 03/02/21 09:00 Body Mass Index 29.0 Const: Other: Sedated and intubated but nonfocal neurologically he awakens easily but cognitive function not there Cardiac exam with no neck vein distension good bilateral carotid upstrokes Chest minimal scattered rales consistent with ventilator Abdomen benign no organomegaly No edema no livedo skin intact Objective Data Labs CBC & Chem 7: 03/02/21 05:14 03/02/21 05:14 Labs: Laboratory Results - last 24 hr 03/01/21 03/02/21 03/02/21 11:29 05:12 05:14 WBC 6.8 RBC 3.67 L Hgb 8.6 L Hct 28.8 L MCV 78.5 L MCH 23.4 L MCHC 29.9 L RDW 22.2 H Plt Count 279 MPV 10.5 Immature Gran % (Auto) 0.4 Neut % (Auto) 77.9 H Lymph % (Auto) 10.0 L [place] % (Auto) 8.6 Eos % (Auto) 2.7 Baso % (Auto) 0.4 Lymph # (Auto) 0.7 L [place] # (Auto) 0.6 Eos # (Auto) 0.2 Baso # (Auto) 0.0 Abs Immat Gran (auto) 0.03 Absolute Neuts (auto) 5.3 Absolute Nucleated RBC 0.000 Nucleated RBC % (auto) 0.0 PT INR APTT VBG pH 7.43 VBG pCO2 46 VBG pO2 72 VBG HCO3 31 H VBG O2 Saturation 95.0 VBG Base Excess 6.3 Sodium Potassium Chloride Carbon Dioxide Anion Gap BUN Creatinine Estim Creat Clear Calc Estimated GFR POC Glucose 78 Random Glucose Calcium Phosphorus Magnesium Total Bilirubin Direct Bilirubin AST ALT Alkaline Phosphatase Total Protein Albumin 03/02/21 03/02/21 05:14 05:14 WBC RBC Hgb Hct MCV MCH MCHC RDW Plt Count MPV Immature Gran % (Auto) Neut % (Auto) Lymph % (Auto) [place] % (Auto) Eos % (Auto) Baso % (Auto) Lymph # (Auto) [place] # (Auto) Eos # (Auto) Baso # (Auto) Abs Immat Gran (auto) Absolute Neuts (auto) Absolute Nucleated RBC Nucleated RBC % (auto) PT 12.3 INR 1.0 APTT 27.2 VBG pH VBG pCO2 VBG pO2 VBG HCO3 VBG O2 Saturation VBG Base Excess Sodium 141 Potassium 3.7 Chloride 108 Carbon Dioxide 29 Anion Gap 8 L BUN 5 L D Creatinine 0.75 Estim Creat Clear Calc 130.5 Estimated GFR > 60 POC Glucose Random Glucose 100 Calcium 7.6 L Phosphorus 2.2 L Magnesium 2.0 Total Bilirubin 0.2 Direct Bilirubin 0.2 AST 23 ALT 18 Alkaline Phosphatase 56 Total Protein 4.8 L Albumin 2.7 L Microbiology Microbiology Results: Microbiology 02/28/21 19:58 Blood - Venous Blood Culture - Preliminary No growth after 24 hours. 02/28/21 19:58 Blood - Venous Blood Culture - Preliminary No growth after 24 hours. Progress Note: A&P Assessment and plan (1) Altered mental status associated with intoxication: Status: Acute (2) GERD with esophagitis: Status: Acute (3) Polysubstance abuse: Status: Acute (4) GIB (gastrointestinal bleeding): Status: Acute (5) Anemia: Status: Acute (6) Hypoxia: Status: Acute (7) Aspiration pneumonitis: Status: Acute Assessment and Plan: So stable without return of appropriate cognitive function and therefore will r emain sedated for another 24 hours Quality Stroke Does the patient have a stroke diagnosis?: No Reason for No Anti-thrombotic by Day Two: Contraindicated VTE Prior VTE?: No VTE Risk Level:: Medical - moderate - high VTE Device Contraindication: N/A - Device Ordered VTE Drug Contraindication: Treatment Not Tolerated
[2021-03-02] MEDS: Lactated Ringers 1,000 ML 100 ML IVCONT ×2 (10:30→20:16)
[2021-03-02] MEDS: Midazolam HCl/NS 50 MG/50 ML PLAST..BAG IVCONT ×3 (10:42→20:16)
--- NOTE | 2021-03-02 19:03 | PC.NURSE ---
MIRANDA ATIVAN GIVEN THIS AM WITHOUT SUCCESS. PT STARTED ON VERSED GTT. SEE MAR. PT CONTINUES TO BE RESTLESS, AGITATED WITH CARE, RESTRAINTS REMAIN IN PLACE. AWARE.
[2021-03-02] MEDS: cefTRIAXone sodium 1 GM in 0.9 % Sodium Chloride 50 ML IV (20:16)
[2021-03-03] VITALS (32 sets, daily range): BP systolic 138–168; BP diastolic 71–94; PULSE 54–95; RESP 17–39; TEMP 36.2–37.5; O2SAT 96–100; BMI 25.6
[2021-03-03] MEDS: Pantoprazole Sodium 80 MG in 0.9 % Sodium Chloride 80 ML 10 MG IV ×3 (01:56→20:41)
[2021-03-03] MEDS: propofoL 1,000 MG/100 ML VIAL 21.77 MG IVCONT ×6 (04:00→23:15)
[2021-03-03] MEDS: Lactated Ringers 1,000 ML 100 ML IVCONT ×2 (04:03→14:30)
[2021-03-03 05:48] LABS: VBG Base Excess 24.2 mmol/L; VBG HCO3 51 mmol/L (22-26); VBG pCO2 67 mmHg; VBG pH 7.48 (7.32-7.43); VBG pO2 54 mmHg
[2021-03-03 05:54] LABS: MANUAL DIFF FLAG NO
[2021-03-03 06:15] LABS: Basophils Percent Auto 0.3 % (0-2); Eosinophils Absolute Auto 0.1 X10*3/uL (0.0-0.4); Hematocrit 28.5 % (42-52); Hemoglobin 8.7 g/dl (14.0-18.0); Imm Gran Abs Auto 0.03 X10*3/uL (0.00-0.03); Imm Gran Pct Auto 0.5 % (0.0-0.4); Lymphocytes Absolute Auto 0.4 X10*3/uL (1.2-4.9); Lymphocytes Percent Auto 6.9 % (20-40); Mean Corpuscular HGB Conc 30.5 g/dl (31.0-36.0); Mean Corpuscular Hemoglobin 23.8 pg (27.0-33.0); Mean Corpuscular Volume 77.9 fL (80-98); Mean Platelet Volume 10.7 fL (9.4-12.4); Monocytes Absolute Auto 0.4 X10*3/uL (0.1-1.2); Monocytes Percent Auto 6.5 % (2-11); Neutrophils Absolute Auto 5.2 X10*3/uL (2.0-8.3); Neutrophils Percent Auto 84.8 % (45-73); Platelet Count 275 X10*3/uL (160-400); Red Blood Count 3.66 X10*6/uL (4.60-5.80); Red Cell Distribution Width 22.5 % (11.0-16.0); White Blood Count 6.1 X10*3/uL (4.8-10.8)
[2021-03-03 06:19] LABS: Prothrombin Time 12.3 SEC (10.8-13.0)
[2021-03-03 06:21] LABS: Partial Thromboplastin Time 28.5 SEC (24.1-38.0)
[2021-03-03] MEDS: fentaNYL citrate/PF 100 MCG/2 ML VIAL 50 MCG IVPUSH (06:21)
[2021-03-03] MEDS: fentaNYL citrate/NS 1,000 MCG/100 ML PLAST..BAG 10 MCG IVCONT (06:22)
--- NOTE | 2021-03-03 06:23 | PC.NURSE ---
P- Approx 0600, patient found covered in yellow vomit, agitated/thrashing, hr 40's. I- PA and RT at bedside. OGT to low int suction. Fentanyl bolus and gtt started @ 100. Versed to be weaned off. E- Patient hr 60's-70's, ventilating appropriately, appears restful.
[2021-03-03 06:52] LABS: Venous Blood Gas Refer to POC result
[2021-03-03 06:54] LABS: Alanine Aminotransferase 15 U/L (0-40); Albumin Level 3.1 g/dL (3.5-5.0); Alkaline Phosphatase 59 U/L (39-117); Anion Gap 9 (12-20); Aspartate Amino Transferase 16 U/L (5-37); Bilirubin Direct < 0.2 mg/dL (0.0-0.5); Bilirubin Total < 0.2 mg/dL (0.0-1.0); Blood Urea Nitrogen 3 mg/dL (9-16); Carbon Dioxide 28 mmol/L (22-29); Chloride 110 mmol/L (96-108); Creatinine Clr Calc Pharmacy 130.9; Estimated Glomerular Filt Rate > 60; Glucose Random 113 mg/dL (60-115); Phosphorus 2.1 mg/dL (2.7-4.5); Potassium 3.8 mmol/L (3.3-5.1); Sodium 143 mmol/L (135-145); Total Protein 5.5 g/dL (6.5-8.0)
[2021-03-03 07:53] LABS: VBG Base Excess 4.4 mmol/L; VBG HCO3 28 mmol/L (22-26); VBG pCO2 41 mmHg; VBG pH 7.44 (7.32-7.43); VBG pO2 70 mmHg
[2021-03-03] MEDS: Chlorhexidine Gluc Oral Rinse 15 ML MOUTHWASH BUCCAL ×3 (07:55→22:23)
[2021-03-03 07:57] LABS: Venous Blood Gas Refer to POC result
[2021-03-03] MEDS: Midazolam HCl/NS 50 MG/50 ML PLAST..BAG IVCONT (11:40)
--- NOTE | 2021-03-03 13:36 | P.PNCC_ITS ---
Subjective Subjective Date of Service: 03/03/21 Interval History: 40-year-old polysubstance abuser with cocaine and heroin with altered mental status requiring intubation and has remained so and the off sedation today still did not have appropriate cognitive function and recent day davis currently with a combination of propofol and Versed with excellent lab work excellent vital signs and hemodynamics no complications thus far and will be re- evaluated for return of cognitive function on a daily basis Critical Care Time (minutes): 40 Physical Exam Vital Signs: Vital Signs: Last Vital Signs Temp 98.6 F 03/03/21 12:00 Pulse 62 03/03/21 12:00 Resp 22 H 03/03/21 12:00 BP 155/94 H 03/03/21 12:00 Pulse Ox 100 03/03/21 12:00 Body Mass Index 25.6 Const: Other: Sedated and intubated nonfocal neurologically Cardiac exam with no neck vein distension no gallops Chest is clear bilaterally no adventitious sounds Abdomen soft no again a megaly good bowel sounds Skin is intact Objective Data Labs CBC & Chem 7: 03/03/21 05:40 03/03/21 05:40 Labs: Laboratory Results - last 24 hr 03/03/21 03/03/21 03/03/21 05:40 05:40 05:40 WBC 6.1 RBC 3.66 L Hgb 8.7 L Hct 28.5 L MCV 77.9 L MCH 23.8 L MCHC 30.5 L RDW 22.5 H Plt Count 275 MPV 10.7 Immature Gran % (Auto) 0.5 H Neut % (Auto) 84.8 H Lymph % (Auto) 6.9 L [place] % (Auto) 6.5 Eos % (Auto) 1.0 Baso % (Auto) 0.3 Lymph # (Auto) 0.4 L [place] # (Auto) 0.4 Eos # (Auto) 0.1 Baso # (Auto) 0.0 Abs Immat Gran (auto) 0.03 Absolute Neuts (auto) 5.2 Absolute Nucleated RBC 0.000 Nucleated RBC % (auto) 0.0 PT 12.3 INR 1.0 APTT 28.5 VBG pH VBG pCO2 VBG pO2 VBG HCO3 VBG O2 Saturation VBG Base Excess Sodium 143 Potassium 3.8 Chloride 110 H Carbon Dioxide 28 Anion Gap 9 L BUN 3 L Creatinine 0.67 Estim Creat Clear Calc 130.9 Estimated GFR > 60 Random Glucose 113 Calcium 8.0 L Phosphorus 2.1 L Magnesium 2.0 Total Bilirubin < 0.2 Direct Bilirubin < 0.2 AST 16 ALT 15 Alkaline Phosphatase 59 Total Protein 5.5 L Albumin 3.1 L 03/03/21 03/03/21 05:41 07:46 WBC RBC Hgb Hct MCV MCH MCHC RDW Plt Count MPV Immature Gran % (Auto) Neut % (Auto) Lymph % (Auto) [place] % (Auto) Eos % (Auto) Baso % (Auto) Lymph # (Auto) [place] # (Auto) Eos # (Auto) Baso # (Auto) Abs Immat Gran (auto) Absolute Neuts (auto) Absolute Nucleated RBC Nucleated RBC % (auto) PT INR APTT VBG pH 7.48 H 7.44 H VBG pCO2 67 41 VBG pO2 54 70 VBG HCO3 51 H 28 H VBG O2 Saturation 87.0 93.0 VBG Base Excess 24.2 4.4 Sodium Potassium Chloride Carbon Dioxide Anion Gap BUN Creatinine Estim Creat Clear Calc Estimated GFR Random Glucose Calcium Phosphorus Magnesium Total Bilirubin Direct Bilirubin AST ALT Alkaline Phosphatase Total Protein Albumin Microbiology Microbiology Results: Microbiology 02/28/21 19:58 Blood - Venous Blood Culture - Preliminary No growth after 48 hours. 02/28/21 19:58 Blood - Venous Blood Culture - Preliminary No growth after 48 hours. Progress Note: A&P Assessment and plan (1) Altered mental status associated with intoxication: Status: Acute (2) GERD with esophagitis: Status: Acute (3) Polysubstance abuse: Status: Acute (4) GIB (gastrointestinal bleeding): Status: Acute (5) Anemia: Status: Acute (6) Hypoxia: Status: Acute (7) Aspiration pneumonitis: Status: Acute Assessment and Plan: Will continue support as above with daily assessment of cognitive function Quality Stroke Does the patient have a stroke diagnosis?: No Reason for No Anti-thrombotic by Day Two: Contraindicated VTE Prior VTE?: No VTE Risk Level:: Medical - moderate - high VTE Device Contraindication: N/A - Device Ordered VTE Drug Contraindication: Treatment Not Tolerated
--- NOTE | 2021-03-03 14:55 | MHC.CM.PN ---
Pt remains intubated in ICU after +GIB. Pt with a hx of polysubstance abuse: tox screen + on arrival for various substances: Pt resides with his mother: d/c plans are for a return to home with outpt f/u and CARE team consult vs Section 35 per notes. Pt will need to be extubated before d/c plan can be amended. CM to follow.
--- NOTE | 2021-03-03 16:59 | PC.NURSE ---
Patient remains off tube feeds per MD. Continues to be agitated with care suctioning, restrains in use. Fentanyl titrated off per MD, Versed drip titrated up, order with max dose 10mg/hr entered by MD. See NOV.
[2021-03-03] MEDS: Midazolam HCl/NS 50 MG/50 ML PLAST..BAG 10 MG IVCONT ×2 (18:33→23:54)
[2021-03-03] MEDS: cefTRIAXone sodium 1 GM in 0.9 % Sodium Chloride 50 ML IV (22:22)
[2021-03-04] VITALS (32 sets, daily range): BP systolic 113–160; BP diastolic 50–93; PULSE 39–78; RESP 10–26; TEMP 36.4–37.4; O2SAT 21–100; BMI 25.8
[2021-03-04] MEDS: Lactated Ringers 1,000 ML 80 ML IVCONT (02:40)
[2021-03-04] MEDS: propofoL 1,000 MG/100 ML VIAL 21.77 MG IVCONT (03:24)
--- NOTE | 2021-03-04 04:54 | PC.NURSE ---
pt having violent retching in which his whole body spasms. despite a patent ogt to continous wall suction, he is vomiting ramirez bile colored gastric material. with retching, pt experienced a vasovagal episode of bradycardia in which his heart rate dropped to 28 bpm. bradycardia was self limiting. the following carried out 1. fentanyl drip restarted at 200mcg/hr d/t opiate withdrawl concerns and ventilatory effort management 2. zofran 4 mg ivp given. lavell goel notified of events. instructed to restart fentanyl drip and give iv zofran. ecg displays sr now qt 400 msec.
[2021-03-04] MEDS: fentaNYL citrate/NS 1,000 MCG/100 ML PLAST..BAG 10 MCG IVCONT ×2 (05:00→17:58)
[2021-03-04] MEDS: ondansetron HCL 4 MG/2 ML VIAL IVPUSH (05:01)
[2021-03-04] MEDS: Midazolam HCl/NS 50 MG/50 ML PLAST..BAG 10 MG IVCONT (05:06)
[2021-03-04 05:34] LABS: MANUAL DIFF FLAG NO
[2021-03-04 05:37] LABS: Basophils Percent Auto 0.4 % (0-2); Eosinophils Absolute Auto 0.1 X10*3/uL (0.0-0.4); Eosinophils Percent Auto 1.1 % (0-4); Hematocrit 29.1 % (42-52); Hemoglobin 8.8 g/dl (14.0-18.0); Imm Gran Abs Auto 0.01 X10*3/uL (0.00-0.03); Imm Gran Pct Auto 0.2 % (0.0-0.4); Lymphocytes Absolute Auto 0.6 X10*3/uL (1.2-4.9); Lymphocytes Percent Auto 10.1 % (20-40); Mean Corpuscular HGB Conc 30.2 g/dl (31.0-36.0); Mean Corpuscular Hemoglobin 23.7 pg (27.0-33.0); Mean Corpuscular Volume 78.4 fL (80-98); Mean Platelet Volume 10.4 fL (9.4-12.4); Monocytes Absolute Auto 0.4 X10*3/uL (0.1-1.2); Monocytes Percent Auto 6.4 % (2-11); Neutrophils Absolute Auto 4.6 X10*3/uL (2.0-8.3); Neutrophils Percent Auto 81.8 % (45-73); Platelet Count 266 X10*3/uL (160-400); Red Blood Count 3.71 X10*6/uL (4.60-5.80); Red Cell Distribution Width 22.7 % (11.0-16.0); White Blood Count 5.7 X10*3/uL (4.8-10.8)
[2021-03-04 05:41] LABS: Venous Blood Gas Refer to POC result
[2021-03-04 05:42] LABS: VBG Base Excess -0.9 mmol/L; VBG HCO3 23 mmol/L (22-26); VBG pCO2 35 mmHg; VBG pH 7.41 (7.32-7.43); VBG pO2 62 mmHg
[2021-03-04 05:45] LABS: INTERNATIONAL NORM RATIO 1.1 (0.9-1.1); Prothrombin Time 13.2 SEC (10.8-13.0)
[2021-03-04 05:48] LABS: Partial Thromboplastin Time 28.1 SEC (24.1-38.0)
[2021-03-04 06:12] LABS: Anion Gap 8 (12-20); Blood Urea Nitrogen 4 mg/dL (9-16); Calcium 8.2 mg/dL (8.4-10.2); Carbon Dioxide 27 mmol/L (22-29); Chloride 112 mmol/L (96-108); Creatinine Clr Calc Pharmacy 127.1; Estimated Glomerular Filt Rate > 60; Glucose Random 98 mg/dL (60-115); Phosphorus 2.9 mg/dL (2.7-4.5); Sodium 143 mmol/L (135-145)
[2021-03-04] MEDS: Pantoprazole Sodium 80 MG in 0.9 % Sodium Chloride 80 ML 10 MG IV (06:40)
[2021-03-04] MEDS: propofoL 1,000 MG/100 ML VIAL 17.42 MG IVCONT (07:17)
[2021-03-04] MEDS: Chlorhexidine Gluc Oral Rinse 15 ML MOUTHWASH BUCCAL (08:30)
[2021-03-04] MEDS: fentaNYL citrate/PF 100 MCG/2 ML VIAL IVPUSH ×2 (08:35→11:43)
--- NOTE | 2021-03-04 10:03 | MHC.CLN ---
F/U OGT SET TO SUCTION PT RETCHING [place] BILE PER NSG TF ON HOLD WILL CHANGE ORDER TO NPO UNTIL STABLE IF TF NEEDED; RECOMMEND JEVITY 1.0 AT MAX GOAL RATE 55CC/HR WITH 120CC FREE WATER FLUSHES Q 4 HRS PROVIDES 1399KCALS (1974KCALS WITH SEDATION; 27KCALS/KG), 58G PROTEIN (.7G/KG), 1822CC TOTAL WATER FROM FORMULA AND FLUSHES (25CC/KG) MONITOR RESIDUALS, TOLERANCE, AND LYTES FOLLOWING
[2021-03-04] MEDS: bisacodyL 10 MG SUPP.RECT PR (10:10)
[2021-03-04] MEDS: fentaNYL citrate/NS 1,000 MCG/100 ML PLAST..BAG 20 MCG IVCONT (10:15)
--- NOTE | 2021-03-04 10:37 | PM.CCPN ---
Subjective Subjective Date of Service: 03/04/21 Interval History: 40-year-old gentleman with underlying history of polysubstance abuse hepatitis-C, GERD, esophagitis, admitted on 02/28/2021 with acute upper GI bleed, toxic encephalopathy, and acute respiratory failure requiring intubation and ventilatory support. Patient has been evaluated by Gastroenterology service and deemed to have likely and acute erosive gastritis bleed. No acute intervention was deemed to be indicated at that time. His hemoglobin stabilized. He continues to require ventilatory support secondary to significant toxic encephalopathy. No acute events. Critical Care Time (minutes): 45 Physical Exam Vital Signs: Vital Signs: Last Vital Signs Temp 97.5 F 03/04/21 10:00 Pulse 48 L 03/04/21 10:00 Resp 17 03/04/21 10:00 BP 135/71 03/04/21 10:00 Pulse Ox 100 03/04/21 10:00 Body Mass Index 25.8 Const: General: no acute distress and other (Sedated on the vent) Eyes: Sclerae: sclerae normal EOM: EOMs intact bilaterally Neck: Neck: Yes no lymphadenopathy, Yes trachea midline and Yes supple Resp: Auscultation: clear to auscultation bilaterally Cardio: Rate: bradycardic Rhythm: regular rhythm Heart sounds: no gallops, no murmurs and no rubs GI: Palpation (GI): Soft to palpation and Other GI palpation findings present ( Nontender) Auscultation: normal bowel sounds Extrem: General: No clubbing, No cyanosis and Yes pedal edema (Trace bilateral) Objective Data Labs CBC & Chem 7: 03/04/21 05:25 03/04/21 05:25 Labs: Laboratory Results - last 24 hr 03/04/21 03/04/21 03/04/21 05:25 05:25 05:25 WBC 5.7 RBC 3.71 L Hgb 8.8 L Hct 29.1 L MCV 78.4 L MCH 23.7 L MCHC 30.2 L RDW 22.7 H Plt Count 266 MPV 10.4 Immature Gran % (Auto) 0.2 Neut % (Auto) 81.8 H Lymph % (Auto) 10.1 L [place] % (Auto) 6.4 Eos % (Auto) 1.1 Baso % (Auto) 0.4 Lymph # (Auto) 0.6 L [place] # (Auto) 0.4 Eos # (Auto) 0.1 Baso # (Auto) 0.0 Abs Immat Gran (auto) 0.01 Absolute Neuts (auto) 4.6 Absolute Nucleated RBC 0.000 Nucleated RBC % (auto) 0.0 PT 13.2 H INR 1.1 APTT 28.1 VBG pH VBG pCO2 VBG pO2 VBG HCO3 VBG O2 Saturation VBG Base Excess Sodium 143 Potassium 4.0 Chloride 112 H Carbon Dioxide 27 Anion Gap 8 L BUN 4 L Creatinine 0.69 Estim Creat Clear Calc 127.1 Estimated GFR > 60 Random Glucose 98 Calcium 8.2 L Phosphorus 2.9 Magnesium 2.0 03/04/21 05:34 WBC RBC Hgb Hct MCV MCH MCHC RDW Plt Count MPV Immature Gran % (Auto) Neut % (Auto) Lymph % (Auto) [place] % (Auto) Eos % (Auto) Baso % (Auto) Lymph # (Auto) [place] # (Auto) Eos # (Auto) Baso # (Auto) Abs Immat Gran (auto) Absolute Neuts (auto) Absolute Nucleated RBC Nucleated RBC % (auto) PT INR APTT VBG pH 7.41 VBG pCO2 35 VBG pO2 62 VBG HCO3 23 VBG O2 Saturation 90.0 VBG Base Excess -0.9 Sodium Potassium Chloride Carbon Dioxide Anion Gap BUN Creatinine Estim Creat Clear Calc Estimated GFR Random Glucose Calcium Phosphorus Magnesium Microbiology Microbiology Results: Microbiology 02/28/21 19:58 Blood - Venous Blood Culture - Preliminary No growth after 48 hours. 02/28/21 19:58 Blood - Venous Blood Culture - Preliminary No growth after 48 hours. Progress Note: A&P Assessment and plan (1) Toxic encephalopathy: Status: Acute Assessment and Plan: Assessment: 40-year-old gentleman with underlying polysubstance abuse and hepatitis-C admitted with upper GI bleed, toxic encephalopathy, and acute respiratory failure requiring ventilatory support. Plan: Neuro: Toxic encephalopathy, likely secondary to underlying polysubstance abuse, continues to require high-dose of sedative drips. Continue to titrate off as tolerated. Cardiac: No acute issues. Pulmonary: Acute respiratory failure requiring intubation and ventilatory support. Continue to titrate off ventilatory support as tolerated. Renal: No acute issues. Endo: No acute issues. GI: Upper GI bleed, likely secondary to erosive gastritis. Gastroenterology service care appreciated. Continue with PPI. OG tube with 300 cc output overnight, intolerant of tube feeds. ID: No acute issues Heme/Onc: No acute issues. Psych: No acute issues. Miscellaneous: No acute issues. Prophylaxis: Ppi, intermittent pneumatic compression Diet: High residuals, intolerant of tube feeding Critical care time spent: 45 minutes (2) Polysubstance abuse: Status: Acute (3) GIB (gastrointestinal bleeding): Status: Acute (4) Acute respiratory failure: Status: Acute (5) Hepatitis C: Status: Acute Quality Stroke Does the patient have a stroke diagnosis?: No Reason for No Anti-thrombotic by Day Two: Contraindicated VTE Prior VTE?: No VTE Risk Level:: Medical - moderate - high VTE Device Contraindication: N/A - Device Ordered VTE Drug Contraindication: Treatment Not Tolerated
[2021-03-04] MEDS: Haloperidol Lactate 5 MG/ML VIAL 10 MG IVPUSH (12:00)
[2021-03-04] MEDS: LORazepam 2 MG/ML VIAL IVPUSH (12:13)
[2021-03-04] MEDS: dexmedeTOMIDidine HCL/NS 400 MCG/100 ML INFUS..BTL 9.08 MCG IVCONT (12:14)
[2021-03-04] MEDS: Lactulose 20 GM/30 ML SOLUTION 30 GM PO ×2 (14:35→20:41)
--- NOTE | 2021-03-04 15:58 | MHC.CM.PN ---
Patient remains in ICU. Extubated today. Patient was recently a section 35. Unsure of discharge plan at this time. Continue to monitor for d/c needs.
[2021-03-04] MEDS: Pantoprazole Sodium 40 MG/10 ML VIAL IVPUSH (16:10)
--- NOTE | 2021-03-04 16:56 | PC.NURSE ---
S/E Afebrile, WBC 5.7 Extubed to RA at 1145 - Spo2 100% Agitated/ combative/ unable to follow directions post extubation Medicated w/ Haldol 10mg IV, Ativan 2mg IV, PRN Fentanyl & Precedex gtt Precedex gtt titrated off d/t bradycardia Ammonia level 61 - Lactulose TID ordered - repeat Ammonia level for AM Continued on Fentanyl gtt @ 100mcg for withdrawals Trace lower extremity edema Sinus, HR down to as low at 39, recovered to 50's Dressing R IJ TLC changed LS clear throughout Occasional dry cough Continued on Ceftriaxone Passed nursing swallow eval - Regular diet ordered Protonix gtt discontinued - Protonix IV BID ordered Moderate size formed BM Urine o/p approx 50-150cc/hr - green color - MD aware No skin integrity concerns Patient bathed, repo q2hr, Prevlon system in place
--- NOTE | 2021-03-04 20:23 | PC.NURSE ---
restless/emotionally labile weeping at times. radiology clerk summoned to bedside. pts questions in regard to hospitalization answered. pt is amazed that he is in the hospital and indicates that he may not want to be here. utilizing acute care physician, pt informed that he is still gravely ill and needs hospitalization. pt agrees to the stay at this time. pt became very upset with lanier catheter and is demanding that lanier be rmoved. pt bolted out of bed and alarms were triggered. pt placed on commode where he passed liquid brown stool. pt returned to bed with 1 assist. gait is unsteady and pt is high fall risk. he is not wearing suplemental o2. sao2 95%. resp effort is regular unlabored. ecg displays sr bbb. fentanyl drip at 100mcg/min.
[2021-03-05] VITALS (15 sets, daily range): BP systolic 123–160; BP diastolic 65–90; PULSE 60–74; RESP 12–20; TEMP 36.5–37.2; O2SAT 93–100; BMI 27.5
[2021-03-05] MEDS: fentaNYL citrate/NS 1,000 MCG/100 ML PLAST..BAG 10 MCG IVCONT (02:44)
[2021-03-05 05:38] LABS: MANUAL DIFF FLAG NO
[2021-03-05 05:39] LABS: VBG HCO3 25 mmol/L (22-26); VBG pCO2 35 mmHg; VBG pH 7.46 (7.32-7.43); VBG pO2 48 mmHg
[2021-03-05 05:42] LABS: Basophils Percent Auto 0.7 % (0-2); Eosinophils Absolute Auto 0.2 X10*3/uL (0.0-0.4); Eosinophils Percent Auto 3.6 % (0-4); Hematocrit 30.3 % (42-52); Imm Gran Abs Auto 0.01 X10*3/uL (0.00-0.03); Imm Gran Pct Auto 0.2 % (0.0-0.4); Lymphocytes Absolute Auto 1.1 X10*3/uL (1.2-4.9); Lymphocytes Percent Auto 18.7 % (20-40); Mean Corpuscular HGB Conc 29.7 g/dl (31.0-36.0); Mean Corpuscular Hemoglobin 23.3 pg (27.0-33.0); Mean Corpuscular Volume 78.3 fL (80-98); Mean Platelet Volume 9.8 fL (9.4-12.4); Monocytes Absolute Auto 0.5 X10*3/uL (0.1-1.2); Monocytes Percent Auto 8.3 % (2-11); Neutrophils Absolute Auto 4.1 X10*3/uL (2.0-8.3); Neutrophils Percent Auto 68.5 % (45-73); Platelet Count 261 X10*3/uL (160-400); Red Blood Count 3.87 X10*6/uL (4.60-5.80); Red Cell Distribution Width 21.8 % (11.0-16.0)
[2021-03-05 05:45] LABS: Venous Blood Gas Refer to POC result
[2021-03-05] MEDS: Pantoprazole Sodium 40 MG/10 ML VIAL IVPUSH ×2 (05:48→17:21)
[2021-03-05] MEDS: LORazepam 2 MG/ML VIAL 1 MG IVPUSH (05:49)
[2021-03-05 06:09] LABS: Ammonia 33 umol/L (13-55)
[2021-03-05 06:14] LABS: Alanine Aminotransferase 13 U/L (0-40); Albumin Level 3.3 g/dL (3.5-5.0); Alkaline Phosphatase 58 U/L (39-117); Anion Gap 8 (12-20); Aspartate Amino Transferase 17 U/L (5-37); Bilirubin Total 0.5 mg/dL (0.0-1.0); Blood Urea Nitrogen 6 mg/dL (9-16); Calcium 8.4 mg/dL (8.4-10.2); Carbon Dioxide 26 mmol/L (22-29); Chloride 110 mmol/L (96-108); Creatinine Clr Calc Pharmacy 112.4; Estimated Glomerular Filt Rate > 60; Glucose Random 89 mg/dL (60-115); Magnesium 1.8 mg/dL (1.6-2.6); Phosphorus 2.6 mg/dL (2.7-4.5); Potassium 3.8 mmol/L (3.3-5.1); Sodium 140 mmol/L (135-145); Total Protein 5.9 g/dL (6.5-8.0)
[2021-03-05] MEDS: Lactulose 20 GM/30 ML SOLUTION 30 GM PO ×3 (08:14→19:53)
[2021-03-05] MEDS: Magnesium Sulfate/H2O 2 GM/50 ML PIGGYBACK IV (08:44)
[2021-03-05] MEDS: Potassium Phosphate 30 MMOL in 0.9 % Sodium Chloride 500 ML 85 MMOL IV (08:55)
--- NOTE | 2021-03-05 09:06 | P.PNCC_ITS ---
Subjective Subjective Date of Service: 03/05/21 Interval History: 40-year-old gentleman with underlying history of polysubstance abuse hepatitis-C, GERD, esophagitis, admitted on 02/28/2021 with acute upper GI bleed, toxic encephalopathy, and acute respiratory failure requiring intubation and ventilatory support. Patient has been evaluated by Gastroenterology service and deemed to have likely and acute erosive gastritis bleed. No acute intervention was deemed to be indicated at that time. His hemoglobin stabilized. Extubated 03/04/2021. Titrated off Precedex drip overnight. Critical Care Time (minutes): 0 Physical Exam Vital Signs: Vital Signs: Last Vital Signs Temp 98.1 F 03/05/21 08:00 Pulse 74 03/05/21 08:00 Resp 15 03/05/21 08:00 BP 147/90 H 03/05/21 08:00 Pulse Ox 100 03/05/21 08:00 Body Mass Index 27.5 Const: General: no acute distress, alert and awake Eyes: Sclerae: sclerae normal EOM: EOMs intact bilaterally Neck: Neck: Yes no lymphadenopathy, Yes trachea midline and Yes supple Resp: Effort & Inspection: normal respiratory effort and no respiratory distress Auscultation: clear to auscultation bilaterally Cardio: Rate: regular rate Rhythm: regular rhythm Heart sounds: no gallops, no murmurs and no rubs GI: Palpation (GI): Soft to palpation and Other GI palpation findings present ( Nontender) Auscultation: normal bowel sounds Extrem: General: Yes no pedal edema, No clubbing and No cyanosis Objective Data Labs CBC & Chem 7: 03/05/21 05:25 03/05/21 05:25 Labs: Laboratory Results - last 24 hr 03/05/21 03/05/21 03/05/21 05:25 05:25 05:25 WBC 6.0 RBC 3.87 L Hgb 9.0 L Hct 30.3 L MCV 78.3 L MCH 23.3 L MCHC 29.7 L RDW 21.8 H Plt Count 261 MPV 9.8 Immature Gran % (Auto) 0.2 Neut % (Auto) 68.5 Lymph % (Auto) 18.7 L [place] % (Auto) 8.3 Eos % (Auto) 3.6 Baso % (Auto) 0.7 Lymph # (Auto) 1.1 L [place] # (Auto) 0.5 Eos # (Auto) 0.2 Baso # (Auto) 0.0 Abs Immat Gran (auto) 0.01 Absolute Neuts (auto) 4.1 Absolute Nucleated RBC 0.000 Nucleated RBC % (auto) 0.0 VBG pH VBG pCO2 VBG pO2 VBG HCO3 VBG O2 Saturation VBG Base Excess Sodium 140 Potassium 3.8 Chloride 110 H Carbon Dioxide 26 Anion Gap 8 L BUN 6 L Creatinine 0.78 Estim Creat Clear Calc 112.4 Estimated GFR > 60 Random Glucose 89 Calcium 8.4 Phosphorus 2.6 L Magnesium 1.8 Total Bilirubin 0.5 AST 17 ALT 13 Alkaline Phosphatase 58 Ammonia 33 Total Protein 5.9 L Albumin 3.3 L 03/05/21 05:32 WBC RBC Hgb Hct MCV MCH MCHC RDW Plt Count MPV Immature Gran % (Auto) Neut % (Auto) Lymph % (Auto) [place] % (Auto) Eos % (Auto) Baso % (Auto) Lymph # (Auto) [place] # (Auto) Eos # (Auto) Baso # (Auto) Abs Immat Gran (auto) Absolute Neuts (auto) Absolute Nucleated RBC Nucleated RBC % (auto) VBG pH 7.46 H VBG pCO2 35 VBG pO2 48 VBG HCO3 25 VBG O2 Saturation 82.0 VBG Base Excess TNP Sodium Potassium Chloride Carbon Dioxide Anion Gap BUN Creatinine Estim Creat Clear Calc Estimated GFR Random Glucose Calcium Phosphorus Magnesium Total Bilirubin AST ALT Alkaline Phosphatase Ammonia Total Protein Albumin Microbiology Microbiology Results: Microbiology 02/28/21 19:58 Blood - Venous Blood Culture - Preliminary 02/28/21 19:58 Blood - Venous Blood Culture - Preliminary No growth after 48 hours. Progress Note: A&P Assessment and plan (1) Hepatitis C: Status: Acute Assessment and Plan: Assessment: 40-year-old gentleman with underlying polysubstance abuse and hepatitis-C admitted with upper GI bleed, toxic encephalopathy, and acute respiratory failure requiring ventilatory support. Plan: Neuro: Toxic encephalopathy, likely secondary to underlying polysubstance abuse, with possible hyperammonemia component. Titrated off Precedex drip overnight. Ammonia level improved with lactulose. Cardiac: No acute issues. Pulmonary: Acute respiratory failure requiring intubation and ventilatory support. Extubated 03/04/2021. Renal: No acute issues. Endo: No acute issues. GI: Upper GI bleed, likely secondary to erosive gastritis. Gastroenterology service care appreciated. Continue with PPI. Tolerating p.o. diet. Underlying active hepatitis-C. ID: No acute issues Heme/Onc: No acute issues. Psych: Underlying polysubstance abuse, may benefit from substance abuse coun seling/addiction team evaluation before discharge. Miscellaneous: No acute issues. Prophylaxis: Ppi, intermittent pneumatic compression Diet: Regular (2) Altered mental status associated with intoxication: Status: Acute (3) Polysubstance abuse: Status: Acute Quality Stroke Does the patient have a stroke diagnosis?: No Reason for No Anti-thrombotic by Day Two: Contraindicated VTE Prior VTE?: No VTE Risk Level:: Medical - moderate - high VTE Device Contraindication: N/A - Device Ordered VTE Drug Contraindication: Treatment Not Tolerated
--- NOTE | 2021-03-05 10:08 | PC.NURSE ---
This RN wasted pt fentanyl gtt with RN Key Baron.
--- NOTE | 2021-03-05 10:30 | MHC.RECOVRN ---
40 year old male presented to [facility] via EMS on 02/28 due to Admits to using lots of heroin i'm not super okay per customs officer. Upon evaluation while in the ED, pt?vomited 4x, thin brown liquid and O2 requirements were increasing. Pt subsequently intubated and admitted to ICU for management of GI bleed, anemia,? and aspiration pneumonitis. Pt extubated?03/04 and transferred to [facility] 03/05. T/w met with pt in 453 to discuss substance use. Pt reports heroin, IN, 3-4 bundles daily as well as cocaine, INH, $20 daily. Last use prior to arrival to ED. Pt reports being prescribed Suboxone, 12 mg daily through [facility] x 3 weeks. Pt reports last dose of Suboxone was 5 days ago. Pt would like to resume Suboxone, however, pt received fentanyl which was discontinued around 0930 today. ?Pt currently experiencing withdrawal symptoms including body aches, nausea, and piloerection. Case discussed with pts RN as well as referred to Janene Ceja APRN.??
[2021-03-05] MEDS: cloNIDine HCL 0.1 MG TABLET PO ×2 (12:02→19:53)
[2021-03-05] MEDS: hydrOXYzine HCL 50 MG TABLET PO ×2 (12:02→19:53)
--- NOTE | 2021-03-05 12:18 | HO.ADDICT_ITS ---
History of Present Illness Date of Service: 03/05/2021 Chief Complaint: GIB, obtunded, polysubstance abuse Reason for Consult: opioid use disorder recent d/c of fentanyl post intubation Requesting physician: Homa Coreas Discussed with referring provider: Yes Sources of Information: patient interviewed and chart reviewed HPI Narrative: Patient is a 40-year-old, Romansh-speaking male, with history opioid use disorder, currently medically admitted for GI bleed. While in the emergency department patient required medications for agitation, and was also noted to be vomiting dark colored substance, while also in the emergency department patient began to show signs of respiratory distress and had an increased O2 requirement and was subsequently intubated. He has since extubated and was transferred to the medical floor today (5 days later) and fentanyl drip stopped. Consult requested as patient has history opioid use disorder and was on Suboxone prior to admission. Patient seen in room 453. He was lying in bed, grimacing and reporting that he was experiencing chills, restlessness, body aches. Nursing reported that fentanyl was discontinued at 10:00. Review of Systems Constitutional: Reports as per HPI Diagnostics Vital Signs (24Hr): Vital Signs - 24 hr 03/04/21 12:55 03/04/21 12:59 03/04/21 13:00 Temperature 98.2 F Pulse Rate 41 L 39 L 44 L Respiratory Rate 11 L Blood Pressure 140/75 H Pulse Oximetry 99 03/04/21 14:00 03/04/21 15:00 03/04/21 16:00 Temperature 97.7 F 98.4 F 98.6 F Pulse Rate 43 L 48 L 57 Respiratory Rate 10 L 14 13 Blood Pressure 152/84 H 129/73 128/68 Pulse Oximetry 100 100 100 03/04/21 16:58 03/04/21 18:00 03/04/21 19:00 Temperature 98.8 F 99.0 F 99.3 F Pulse Rate 68 69 78 Respiratory Rate 15 13 15 Blood Pressure 121/64 119/55 L 141/85 H Pulse Oximetry 98 93 95 03/04/21 20:00 03/04/21 21:00 03/04/21 22:00 Temperature 99.1 F Pulse Rate 69 70 65 Respiratory Rate 12 15 15 Blood Pressure 122/52 L Pulse Oximetry 96 93 94 03/04/21 23:00 03/05/21 00:00 03/05/21 01:00 Temperature 98.5 F Pulse Rate 66 64 64 Respiratory Rate 16 12 14 Blood Pressure 113/50 L Pulse Oximetry 95 96 93 03/05/21 02:00 03/05/21 03:00 03/05/21 04:00 Temperature 97.7 F Pulse Rate 66 62 62 Respiratory Rate 17 14 14 Blood Pressure Pulse Oximetry 96 93 93 03/05/21 05:00 03/05/21 06:00 03/05/21 07:00 Temperature 97.9 F Pulse Rate 68 67 71 Respiratory Rate 16 12 15 Blood Pressure 133/68 123/65 123/65 Pulse Oximetry 97 97 96 03/05/21 08:00 03/05/21 09:00 03/05/21 11:22 Temperature 98.1 F 98.5 F 98.7 F Pulse Rate 74 68 72 Respiratory Rate 15 18 20 Blood Pressure 147/90 H 160/85 H 143/83 H Pulse Oximetry 100 100 99 03/05/21 12:02 Temperature Pulse Rate 72 Respiratory Rate Blood Pressure 143/83 H Pulse Oximetry Body Mass Index 27.5 Labs Results: 03/05/21 05:25 03/05/21 05:25 Labs: Laboratory Results - last 48 hr 03/04/21 03/04/21 03/04/21 05:25 05:25 05:25 WBC 5.7 RBC 3.71 L Hgb 8.8 L Hct 29.1 L MCV 78.4 L MCH 23.7 L MCHC 30.2 L RDW 22.7 H Plt Count 266 MPV 10.4 Immature Gran % (Auto) 0.2 Neut % (Auto) 81.8 H Lymph % (Auto) 10.1 L [place] % (Auto) 6.4 Eos % (Auto) 1.1 Baso % (Auto) 0.4 Lymph # (Auto) 0.6 L [place] # (Auto) 0.4 Eos # (Auto) 0.1 Baso # (Auto) 0.0 Abs Immat Gran (auto) 0.01 Absolute Neuts (auto) 4.6 Absolute Nucleated RBC 0.000 Nucleated RBC % (auto) 0.0 PT 13.2 H INR 1.1 APTT 28.1 VBG pH VBG pCO2 VBG pO2 VBG HCO3 VBG O2 Saturation VBG Base Excess Sodium 143 Potassium 4.0 Chloride 112 H Carbon Dioxide 27 Anion Gap 8 L BUN 4 L Creatinine 0.69 Estim Creat Clear Calc 127.1 Estimated GFR > 60 Random Glucose 98 Calcium 8.2 L Phosphorus 2.9 Magnesium 2.0 Total Bilirubin AST ALT Alkaline Phosphatase Ammonia Total Protein Albumin 03/04/21 03/05/21 03/05/21 05:34 05:25 05:25 WBC 6.0 RBC 3.87 L Hgb 9.0 L Hct 30.3 L MCV 78.3 L MCH 23.3 L MCHC 29.7 L RDW 21.8 H Plt Count 261 MPV 9.8 Immature Gran % (Auto) 0.2 Neut % (Auto) 68.5 Lymph % (Auto) 18.7 L [place] % (Auto) 8.3 Eos % (Auto) 3.6 Baso % (Auto) 0.7 Lymph # (Auto) 1.1 L [place] # (Auto) 0.5 Eos # (Auto) 0.2 Baso # (Auto) 0.0 Abs Immat Gran (auto) 0.01 Absolute Neuts (auto) 4.1 Absolute Nucleated RBC 0.000 Nucleated RBC % (auto) 0.0 PT INR APTT VBG pH 7.41 VBG pCO2 35 VBG pO2 62 VBG HCO3 23 VBG O2 Saturation 90.0 VBG Base Excess -0.9 Sodium Potassium Chloride Carbon Dioxide Anion Gap BUN Creatinine Estim Creat Clear Calc Estimated GFR Random Glucose Calcium Phosphorus Magnesium Total Bilirubin AST ALT Alkaline Phosphatase Ammonia 33 Total Protein Albumin 03/05/21 03/05/21 05:25 05:32 WBC RBC Hgb Hct MCV MCH MCHC RDW Plt Count MPV Immature Gran % (Auto) Neut % (Auto) Lymph % (Auto) [place] % (Auto) Eos % (Auto) Baso % (Auto) Lymph # (Auto) [place] # (Auto) Eos # (Auto) Baso # (Auto) Abs Immat Gran (auto) Absolute Neuts (auto) Absolute Nucleated RBC Nucleated RBC % (auto) PT INR APTT VBG pH 7.46 H VBG pCO2 35 VBG pO2 48 VBG HCO3 25 VBG O2 Saturation 82.0 VBG Base Excess TNP Sodium 140 Potassium 3.8 Chloride 110 H Carbon Dioxide 26 Anion Gap 8 L BUN 6 L Creatinine 0.78 Estim Creat Clear Calc 112.4 Estimated GFR > 60 Random Glucose 89 Calcium 8.4 Phosphorus 2.6 L Magnesium 1.8 Total Bilirubin 0.5 AST 17 ALT 13 Alkaline Phosphatase 58 Ammonia Total Protein 5.9 L Albumin 3.3 L Imaging Radiology Impressions: ITS Impressions Chest X-Ray 02/28/21 17:33 IMPRESSION: Upper normal-size cardiac silhouette. Increased perihilar lung markings questionable for airways disease/pneumonia versus mild pulmonary edema. Clinical correlation recommended. Chest X-Ray 02/28/21 19:51 IMPRESSION: Satisfactory position of support line and tubes. Increasing airspace disease at the left lung base. Abdomen/Pelvis CT 02/28/21 21:30 IMPRESSION: Bibasilar consolidations. Findings certainly would be compatible with aspiration. ET tube position. No acute abnormality seen in the abdomen or pelvis. Stable retroperitoneal lymph nodes. Chest CT 02/28/21 21:30 IMPRESSION: Bibasilar consolidations. Findings certainly would be compatible with aspiration. ET tube position. No acute abnormality seen in the abdomen or pelvis. Stable retroperitoneal lymph nodes. Chest X-Ray 03/02/21 06:00 IMPRESSION: Satisfactory position of support line and tubes. No change in bilateral lower lobe airspace disease, left greater than right. Mental Status Exam Mental Status Exam Patient Appearance: Appropriate Level of Consciousness: Awake and Alert Patient Behavior: Restless Mood Description: Anxious Affect Description: Anxious Ability to Follow Directions: Good Speech Pattern: Clear Thought Content: positive for Linear Judgement: Fair Medications Medications Current Medications Generic Name Dose Route Start Last Admin Trade Name Freq PRN Reason Stop Dose Admin Acetaminophen 650 mg 03/05/21 11:58 Acetaminophen 325 Mg Tablet PO Q6H PRN fever/mild p;ain Albuterol/Ipratropium 3 ml 02/28/21 22:26 Albuterol/Iprat 2.5/0.5mg 3 Ml Ampul.Neb INHALE RQ4H PRN Wheezing Clonidine HCl 0.1 mg 03/05/21 12:00 03/05/21 12:02 Clonidine Hcl 0.1 Mg Tablet PO 0.1 mg TID DARÍO Administration Protocol Fentanyl 100 mcg 03/04/21 08:34 03/04/21 11:43 Fentanyl Citrate/Pf 100 Mcg/2 Ml Vial IVPUSH 100 mcg Q2H PRN Administration Pain, Moderate (Pain Scale 4-6 Hydroxyzine HCl 50 mg 03/05/21 11:41 03/05/21 12:02 Hydroxyzine Hcl 50 Mg Tablet PO 50 mg Q8H PRN Administration anxiety/restlessness Potassium Phosphate 30 mmol/ 510 mls @ 85 mls/hr 03/05/21 08:24 03/05/21 08:55 Sodium Chloride IV 03/05/21 14:23 85 mls/hr ONCE ONE Administration Lactulose 30 gm 03/04/21 15:00 03/05/21 08:14 Lactulose 20 Gm/30 Ml Solution PO 30 gm TID DARÍO Administration Naloxone HCl 0.2 mg 03/03/21 05:51 Naloxone Hcl 0.4 Mg/Ml Vial IVPUSH Q2M PRN Excessive sedation or RR < 8 Ondansetron HCl 4 mg 03/05/21 11:58 Ondansetron Hcl 4 Mg/2 Ml Vial IVPUSH Q4H PRN nausea/vomiting Pantoprazole Sodium 40 mg 03/04/21 16:30 03/05/21 05:48 Pantoprazole Sodium 40 Mg/10 Ml Vial IVPUSH 40 mg BID@0630,1630 [facility] Administration Allergies Allergies Allergy/AdvReac Type Severity Reaction Status Date / Time No Known Allergies Allergy Verified 09/12/20 05:49 [No Known Allergies*] Assessment & Plan Assessment & Plan (1) Opioid withdrawal: Status: Acute Code(s): F11.23 - Opioid dependence with withdrawal Recommendations: * Restarting Suboxone following fentanyl administration it is little bit challenging. Usually requires is 6-12 hours following last fentanyl dose to begin to attempt to reintroduce Suboxone, due to risk of precipitated withdrawal. * Could administer short-acting full agonist periodically to bridge until it is time to restart Suboxone * When Suboxone is restarted, advised to start at lower dose such as 1 mg, then monitor for worsening withdrawal.If withdrawal is not worse then additional 1 mg may be given one hour later and continue to titrate up by 2 mg every 1-2 hours until back at 12mg which was outpatient dose. * Clonidine and hydroxyzine ordered to assist with anxiety related to withdrawal Greater than 50% of the session was spent on counseling and/or coordination of care PMFSH Past Medical History Medical History Drug abuse Liver disease Social History Social History Household Members: None Housing: Homeless Do you presently have visiting nurse or other home services: No Unable to assess alcohol history related to: Unable to respond and Unknown Alcohol intake: current Alcohol intake frequency: 0-2 drinks per day Alcohol type: beer Patient Tobacco Use Status: Current someday Tobacco user Tobacco use type: Cigarette Smoked in Last 30 Days: Yes Patient Interested in Nicotine Replacement: No Patient Given Instructions on How to Stop Smoking: No Use of substances other than those prescribed or required for medical reasons: Yes Substance Use Type: Crack/Cocaine, Heroin, Marijuana and Opiates Substance Use Frequency: Chronic Longstanding Last Used Substance: Just Prior to Admission Currently Displaying Signs/Symptoms of Drug Intoxication Withdrawal: No Advance Directives: No Advance Directives Information Provided: Yes Do you have thoughts of harming others: None Do you have a plan to hurt others: No Plan Recently lost weight without trying: Unsure Nutrition Risks: No Nutritional Risk Poor oral hygiene: No service: No Current occupational status: unemployed
--- NOTE | 2021-03-05 16:15 | MHC.RECOVRN ---
T/w met with pt to f/u regarding withdrawal symptoms. Pt reports feeling good, denies body aches and GI symptoms, is able to sit still, is not flushed. Discussed with Janene Ceja APRN as well as pts RN. Plan to continue to wait to see if pt begins exhibiting symptoms.
--- NOTE | 2021-03-05 16:54 | PC.NURSE ---
Triple lumen in right IJ removed at 1520 with tip intact and no complications. Pt O2 monitored for one hour ranging from 96-100% on R/A . Pt VSS. Tegaderm dressing with xeroform and guaze applied, C/D/I.
--- NOTE | 2021-03-05 17:09 | PM.EVENT ---
Event Note Date of Service: 03/05/21 Event Note: Addiction follow up: patient denies any withdrawal sx at this time Appearing comfortable. Clonidine and hydroxyzine administered with good effect. Plan: -please continue to monitor for withdrawal sx. -please see addiciton consult note for plan regarding restarting suboxone.
[2021-03-05] MEDS: Acetaminophen 325 MG TABLET 650 MG PO (17:24)
[2021-03-06 04:00] VITALS: BP 155/85; PULSE 55; RESP 20; TEMP 37.1; O2SAT 99
[2021-03-06] MEDS: hydrOXYzine HCL 50 MG TABLET PO (04:12)
[2021-03-06 05:55] VITALS: BMI 26.6
[2021-03-06 06:15] LABS: MANUAL DIFF FLAG NO
[2021-03-06] MEDS: Pantoprazole Sodium 40 MG/10 ML VIAL IVPUSH (06:16)
[2021-03-06 06:21] LABS: Basophils Absolute Auto 0.1 X10*3/uL (0.0-0.2); Basophils Percent Auto 0.9 % (0-2); Eosinophils Absolute Auto 0.1 X10*3/uL (0.0-0.4); Eosinophils Percent Auto 1.4 % (0-4); Hematocrit 33.8 % (42-52); Hemoglobin 10.2 g/dl (14.0-18.0); Imm Gran Abs Auto 0.02 X10*3/uL (0.00-0.03); Imm Gran Pct Auto 0.3 % (0.0-0.4); Lymphocytes Absolute Auto 1.1 X10*3/uL (1.2-4.9); Lymphocytes Percent Auto 17.3 % (20-40); Mean Corpuscular HGB Conc 30.2 g/dl (31.0-36.0); Mean Corpuscular Hemoglobin 23.1 pg (27.0-33.0); Mean Corpuscular Volume 76.5 fL (80-98); Mean Platelet Volume 10.8 fL (9.4-12.4); Monocytes Absolute Auto 0.8 X10*3/uL (0.1-1.2); Monocytes Percent Auto 12.5 % (2-11); Neutrophils Absolute Auto 4.3 X10*3/uL (2.0-8.3); Neutrophils Percent Auto 67.6 % (45-73); Platelet Count 305 X10*3/uL (160-400); Red Blood Count 4.42 X10*6/uL (4.60-5.80); Red Cell Distribution Width 21.5 % (11.0-16.0); White Blood Count 6.4 X10*3/uL (4.8-10.8)
[2021-03-06 06:48] LABS: Anion Gap 13 (12-20); Blood Urea Nitrogen 9 mg/dL (9-16); Calcium 8.7 mg/dL (8.4-10.2); Carbon Dioxide 24 mmol/L (22-29); Chloride 110 mmol/L (96-108); Creatinine Clr Calc Pharmacy 103.2; Estimated Glomerular Filt Rate > 60; Glucose Random 111 mg/dL (60-115); Potassium 3.8 mmol/L (3.3-5.1); Sodium 143 mmol/L (135-145)
[2021-03-06 07:09] VITALS: BP 152/80; PULSE 71; RESP 18; TEMP 36.6; O2SAT 98
[2021-03-06 08:17] VITALS: BP 152/80; PULSE 71
[2021-03-06] MEDS: Lactulose 20 GM/30 ML SOLUTION 30 GM PO (08:17)
[2021-03-06] MEDS: cloNIDine HCL 0.1 MG TABLET PO (08:17)
--- NOTE | 2021-03-06 08:45 | MHC.RECOVRN ---
T/w met with pt to assess withdrawal symptoms. Pt continues to not exhibit any signs or symptoms of withdrawal. Pt however would like to initiate Suboxone. Pt aware of precipitated withdrawal and that initial doses will be lower in order to avoid precipitated withdrawal. Pt understands and would like to initiate. Discussed with Janene Ceja APRN, as well as pts RN.
[2021-03-06 11:09] VITALS: BP 137/88; PULSE 75; RESP 18; TEMP 37.2; O2SAT 98
[2021-03-06] MEDS: Buprenorphine/Naloxone 2/0.5mg FILM 1 FILM SUBLINGUAL (11:38)
--- NOTE | 2021-03-06 13:03 | P.DS_ITS ---
DS: Providers Provider Date of Service: 03/06/21 Date of admission: 02/28/21 20:15 Primary care physician: [facility] Consults: 03/05/21 09:50 Addiction Medicine Routine Consulting Provider: Janene Ceja Reason for consultation: crack and heroin abuse, intubated/extubated DS: Diagnosis Discharge Diagnosis (1) Opioid withdrawal: Status: Acute DS: Medications Discharge Medications Home Medications: Home Medications Medication Instructions Recorded Confirmed No Known Home Meds 02/28/21 02/28/21 DS: Summary Hospital Course Hospital Course: Patient was admitted for toxic encephalopathy due to polysubstance abuse including heroin, crack. On admission he was also noted to have acute blood loss anemia with hemoglobin of 6.1 and hematemesis. Patient then had aspiration pneumonitis with acute hypoxic respiratory failure requiring intubation. Patient was admitted to the intensive care unit where he received IV Protonix, 3 units packed red blood cell, Gastroenterology who recommended conservative management with PPI. Patient was eventually weaned off sedation and extubated on 03/04/21, he had no further bleeding and hemoglobin stabilized. He was transitioned oral PPI. He was seen by addiction team will follow up outpatient for Suboxone. Patient is feeling much better and back to baseline he will be discharged home. Time Spent with Patient Time attestation: Total time spent providing and/or coordinating discharge services: Discharge coordination time: Greater than 30 minutes Quality: Stroke Does the patient have a stroke diagnosis?: No Physical Exam Vital Signs: Vital Signs: Last Vital Signs Temp 99.0 F 03/06/21 11:09 Pulse 75 03/06/21 11:09 Resp 18 03/06/21 11:09 BP 137/88 03/06/21 11:09 Pulse Ox 98 03/06/21 11:09 Body Mass Index 26.6 General: AO X 3, no acute distress Resp: CTA bilateral CVS: S1,S2,RRR GI: soft, non tender, non distended Neuro: motor grossly intact Psych: appropriate affect DS: Data Data Completed and Pending Labs on day of discharge: Laboratory Results - last 24 hr 03/06/21 03/06/21 05:28 05:28 WBC 6.4 RBC 4.42 L Hgb 10.2 L Hct 33.8 L MCV 76.5 L MCH 23.1 L MCHC 30.2 L RDW 21.5 H Plt Count 305 MPV 10.8 Immature Gran % (Auto) 0.3 Neut % (Auto) 67.6 Lymph % (Auto) 17.3 L [place] % (Auto) 12.5 H Eos % (Auto) 1.4 Baso % (Auto) 0.9 Lymph # (Auto) 1.1 L [place] # (Auto) 0.8 Eos # (Auto) 0.1 Baso # (Auto) 0.1 Abs Immat Gran (auto) 0.02 Absolute Neuts (auto) 4.3 Absolute Nucleated RBC 0.000 Nucleated RBC % (auto) 0.0 Sodium 143 Potassium 3.8 Chloride 110 H Carbon Dioxide 24 Anion Gap 13 BUN 9 Creatinine 0.85 Estim Creat Clear Calc 103.2 Estimated GFR > 60 Random Glucose 111 Calcium 8.7 Discharge Plan Discharge Patient Disposition: Home, Self-Care Discharge Diagnosis: opiate withdrawl Referrals: [facility] [Primary Care Provider] - 1 Week Discharge Medications: No Action No Known Home Meds RF: 0 Discharge Orders: Discharge Order (Routine); Ordered 03/06/21 Ordered By: Conner Bergman Diet: advance to usual diet Activity on Discharge: As tolerated Stand Alone Forms: Patient Portal Discharge page Care Plan Goals: recovery Health Concerns: opiates Plan of Treatment: follow up with addiction team Assessment: see above
--- NOTE | 2021-03-06 13:03 | MHC.CM.PN ---
pt dcd no skilled servceis orderdd by
--- NOTE | 2021-03-06 13:43 | P.EN_ITS ---
Event Note Date of Service: 03/06/21 Event Note: Addiciton follow up: Patient reports he is ready to restart subooxne. Denies any withdrawal sx, appearing very comfortable and pleasant when seen by this report writer, but was observed to be frequently shifting and legs very restless. Discussed at length what led to ED visit and subsequent admission. Discussed pursuing recovery supports to assist in developing more effective coping skills instead of using substance to deal with increasing stressors in his life. Plan: -patient administered 1 dose of Suboxone 2 mg with no adverse effect. -additional 4 mg of Suboxone ordered -patient to be discharged today and follow up at [facility] -prescription for Suboxone 12 mg to be sent into pharmacy to [facility] patient until his next appointment. -take home Narcan provided
[2021-03-06] MEDS: Naloxone HCl Nasal TAKE HOME 4 MG SPRAY NOSTRILALT (14:05)
[2021-03-06] MEDS: Buprenorphine/Naloxone 4/1 mg FILM 1 FILM SUBLINGUAL (14:05)
== END 2021-03-06 14:19 | disposition home or self-care (01) | DRG 812 ==
LOC: HO.ED 16:35 → HO.EDOVER 20:29 → HO.ICU 20:42 → HO.IMC 03-05 08:41
PROVIDERS: Emergency Medicine; Internal Medicine Cardiovascular Disease; Internal Medicine Pulmonary Disease; Physician Assistant Medical; Admitting Provider Physician Assistant; Emergency Provider Emergency Medicine Emergency Medical Services; Visit Provider Internal Medicine
DX: T50.911A Poisoning by multiple unspecified drugs, medicaments and biological substances, accidental (unintentional), initial encounter (principal); J96.01 Acute respiratory failure with hypoxia; J69.0 Pneumonitis due to inhalation of food and vomit; G92 Toxic encephalopathy; K29.01 Acute gastritis with bleeding; F11.20 Opioid dependence, uncomplicated; F14.121 Cocaine abuse with intoxication with delirium; D62 Acute posthemorrhagic anemia; F17.210 Nicotine dependence, cigarettes, uncomplicated; Z71.6 Tobacco abuse counseling; Z20.822 Contact with and (suspected) exposure to COVID-19; K21.01 Gastro-esophageal reflux disease with esophagitis, with bleeding; B19.20 Unspecified viral hepatitis C without hepatic coma; Y92.9 Unspecified place or not applicable
CPT/HCPCS: 36415; 71045; 71250; 74176; 80048; 80053; 80076; 80143; 80179; 80307; 82077; 82140; 82150; 82272; 82728; 82947; 83540; 83605; 83690; 83735; 83880; 84100; 84145; 85025; 85610; 85652; 85730; 86140; 86704; 86706; 86709; 86803; 86850; 86900; 86901; 86923; 87040; 87205; 87340; 87635; 93005; 94002; 94003; 94640; 99285; C1758; J0696; J2060; J2250; J2405; J3010; J3411; J3475; P9016

== ENCOUNTER 2021-05-01 14:10 | Emergency (ER) | payer MEDICAID, SELFPAY ==
[2021-05-01 14:19] VITALS: BP 119/75; BP 130/90; PULSE 99; RESP 16; O2SAT 99; BMI 26.4
[2021-05-01 15:50] LABS: MANUAL DIFF FLAG NO
[2021-05-01 15:56] LABS: Basophils Absolute Auto 0.1 X10*3/uL (0.0-0.2); Basophils Percent Auto 0.7 % (0-2); Eosinophils Absolute Auto 0.1 X10*3/uL (0.0-0.4); Eosinophils Percent Auto 1.2 % (0-4); Hematocrit 33.2 % (42-52); Hemoglobin 9.7 g/dl (14.0-18.0); Imm Gran Abs Auto 0.03 X10*3/uL (0.00-0.03); Imm Gran Pct Auto 0.3 % (0.0-0.4); Lymphocytes Absolute Auto 1.4 X10*3/uL (1.2-4.9); Lymphocytes Percent Auto 14.9 % (20-40); Mean Corpuscular HGB Conc 29.2 g/dl (31.0-36.0); Mean Corpuscular Hemoglobin 21.9 pg (27.0-33.0); Mean Corpuscular Volume 75.1 fL (80-98); Mean Platelet Volume 10.9 fL (9.4-12.4); Neutrophils Absolute Auto 6.9 X10*3/uL (2.0-8.3); Neutrophils Percent Auto 72.9 % (45-73); Platelet Count 492 X10*3/uL (160-400); Red Blood Count 4.42 X10*6/uL (4.60-5.80); Red Cell Distribution Width 18.6 % (11.0-16.0); White Blood Count 9.5 X10*3/uL (4.8-10.8)
--- NOTE | 2021-05-01 16:18 | ED_ITS ---
HPI - Psych General Chief Complaint: ETOH/Substance Use Stated Complaint: drug use Time Seen by Provider: 05/01/21 14:31 Source: patient Mode of arrival: EMS Limitations: other (Poor historian and intoxicated) History of Present Illness HPI Narrative: 40-year-old Male presenting to the ED via EMS reporting ?I have n ot slept in 6 days?. Reports that he snorted heroin and smoked crack cocaine a few hours prior to arrival. Denies any other drug usage. Denies any recent ETOH intake. Denies any SI/HI/auditory visual sedation thoughts of self-injury. Very adamantly refusing detox. He reports ?I am not going to detox?. He denies any other symptoms complaints or concerns at this time. MD complaint: substance abuse Onset (ago): year(s) Duration: constant History of same: Yes Relieving factors: none Exacerbating factors: drug use Context: recent drug abuse Associated psychiatric symptoms: none Associated symptoms: denies other symptoms Treatments prior to arrival: none Related Data Previous Rx's Medication Instructions Recorded buprenorphine 12 mg-naloxone 3 mg 1 film SUBLINGUAL DAILY #4 ea 03/06/21 sublingual film (Suboxone) omeprazole magnesium 20 mg 20 mg PO DAILY #30 tab 03/06/21 tablet,delayed release (Prilosec OTC) Allergies Allergy/AdvReac Type Severity Reaction Status Date / Time No Known Allergies Allergy Verified 09/12/20 05:49 [No Known Allergies*] Review of Systems Review of Systems: Constitutional : No Fever, No Chills ENT/Mouth : No Ear Pain, No Nasal Congestion, No sore throat Eyes: No Eye Pain, No Swelling, No Redness Cardiovascular : No Chest Pain, No SOB Respiratory : No Cough, No Sputum, No Dyspnea Gastrointestinal : No ingestions, No Nausea, No Vomiting, No Diarrhea, No Hematochezia, No Melena Genitourinary : No Dysuria, No Urinary Frequency, No Hematuria Musculoskeletal : No Myalgias Skin : No Skin Lesions, No rash Neuro : No Weakness, No Numbness, No Paresthesias, No Dizziness, No Headache Psych : + Anxiety, No Depression, No SI, No thoughts of self injury, No HI, No AVH, Heme/Lymph: No Lymphadenopathy Endocrine : No Polyuria, No Polydipsia Yes all other systems are reviewed and are negative [facility] Past Medical History Attestation statement: The following information was validated with the patient. Medical History Drug abuse Liver disease Social History Social History Household Members: None Housing: Homeless Do you presently have visiting nurse or other home services: No Unable to assess alcohol history related to: Unable to respond and Unknown Alcohol intake: current Alcohol intake frequency: 0-2 drinks per day Alcohol type: beer Patient Tobacco Use Status: Current someday Tobacco user Tobacco use type: Cigarette Substance Use Type: Crack/Cocaine, Heroin, Marijuana and Opiates Advance Directives: No Advance Directives Information Provided: No service: No Current occupational status: unemployed Physical Exam Vital Signs: Vital Signs: Last Vital Signs Pulse 99 05/01/21 14:19 Resp 16 05/01/21 14:19 BP 119/75 05/01/21 14:19 Pulse Ox 99 05/01/21 14:19 Body Mass Index 26.4 vital signs have been reviewed as normal and appeared to be correct. Blood pressure normal. Heart rate normal. Respiration rate normal. Temperature normal. Oxygen saturation normal. Appearance: Intoxicated unable to sit still. Oriented X3. No acute distress. Head: Normal external exam. Normocephalic. Atraumatic. No Garcia signs noted. No raccoon eyes noted Eyes: PERRLA. EOMI. Conjunctiva and sclera normal. Eyelids normal. ENT: EAC normal. TM's Normal. Pharynx normal. Uvula midline. Moist mucous membranes. No trismus noted. No drooling noted. No muffled voice noted. Neck: Normal inspection. Neck supple. FROM. No adenopathy. Thyroid Normal. No meningeal signs. No neck mass noted. CVS: Normal heart rate and rhythm. Heart sound normal. No murmurs noted. Pulses normal throughout. Respiratory: No respiratory distress. Painless inspiration. Breath sounds normal. No wheezes/rales/rhonchi noted. Chest nontender. No accessory muscle usage noted or decreased air movement noted. Abdomen: Soft and nontender. Bowel sounds normal in all 4 quadrants. No distention noted. No organomegaly noted. No visible injury noted. Back: No CVA tenderness. Full range of motion noted. Skin: Skin warm and dry. Normal skin color. Normal skin turgor. No rashes/lesions/lacerations noted. Extremities: No lower extremity edema. No calf tenderness is noted. exhibit normal range of motion. Extremities nontender. Neuro: Oriented X 3. No motor deficit. No sensory deficit. Reflexes normal. Psych: Patient disheveled. Poor high drain/grooming. Mental status normal, speech and movement normal. Is cooperative. He does not have normal thought p rocess. He does not have normal thought content. He does not have good insight. He does not have good judgment. Course Course Course Narrative: 15pm - 40-year-old with a past medical history of substance abuse snorting heroin and smoking cocaine presenting to the ED intoxicated although denies any complaints or concerns at this time. Denies any SI/HI/auditory visualizations thoughts of self-injury. No signs of trauma. He is intoxicated although alert and oriented x3. Not in any acute distress. Lungs clear to auscultation. CV RRR. Abdomen is soft and nontender. Plan: Labs then re-evaluate. Reevaluation(s) Reevaluation #1: - labs return patient with a mild baseline anemia similar compared to prior. Elevated platelet count at 492. BUN 19. Otherwise all other labs are within normal limits. ETOH level negative. - therefore patient is medically cleared at this time and place and position observation because the patient needs more time to be clinically sober. Will continue to monitor. At this time patient remains alert/intoxicated not in any acute distress. No focal neuro deficits are noted. Lungs clear to auscultation. CV RRR. Abdomen is soft and nontender. Time: 16:45 Reevaluation #2: - patient clinically sober and decided that he wanted to leave therefore security assisted him to get his clothes and he laughed at this time. Time: 17:12 [facility] - Psych Medical Records Attestation: I reviewed the patient's medical records. Lab Data Attestation: I reviewed the patient's lab results. Result diagrams: 05/01/21 15:37 05/01/21 15:38 Labs: Lab Results 05/01/21 05/01/21 05/01/21 Range/Units 15:37 15:37 15:37 WBC 9.5 (4.8-10.8) X10*3/uL RBC 4.42 L (4.60-5.80) X10*6/uL Hgb 9.7 L (14.0-18.0) g/dl Hct 33.2 L (42-52) % MCV 75.1 L (80-98) fL MCH 21.9 L (27.0-33.0) pg MCHC 29.2 L (31.0-36.0) g/dl RDW 18.6 H (11.0-16.0) % Plt Count 492 H D (160-400) X10*3/uL MPV 10.9 (9.4-12.4) fL Immature Gran % (Auto) 0.3 (0.0-0.4) % Neut % (Auto) 72.9 (45-73) % Lymph % (Auto) 14.9 L (20-40) % [place] % (Auto) 10.0 (2-11) % Eos % (Auto) 1.2 (0-4) % Baso % (Auto) 0.7 (0-2) % Lymph # (Auto) 1.4 (1.2-4.9) X10*3/uL [place] # (Auto) 1.0 (0.1-1.2) X10*3/uL Eos # (Auto) 0.1 (0.0-0.4) X10*3/uL Baso # (Auto) 0.1 (0.0-0.2) X10*3/uL Abs Immat Gran (auto) 0.03 (0.00-0.03) X10*3/uL Absolute Neuts (auto) 6.9 (2.0-8.3) X10*3/uL Absolute Nucleated RBC 0.000 (0.0-0.012) X10*3/uL Nucleated RBC % (auto) 0.0 (0.0-0.2) /100WBC Sodium (135-145) mmol/L Potassium (3.3-5.1) mmol/L Chloride (96-108) mmol/L Carbon Dioxide (22-29) mmol/L Anion Gap (12-20) BUN (9-16) mg/dL Creatinine (0.5-1.4) mg/dL Estim Creat Clear Calc Estimated GFR Random Glucose (60-115) mg/dL Calcium (8.4-10.2) mg/dL Magnesium (1.6-2.6) mg/dL Total Bilirubin (0.0-1.0) mg/dL AST (5-37) U/L ALT (0-40) U/L Alkaline Phosphatase (39-117) U/L Total Protein (6.5-8.0) g/dL Albumin (3.5-5.0) g/dL Lipase (8-78) U/L Ethyl Alcohol < 10 mg/dL Coronavirus (PCR) NEGATIVE (Negative) Influenza Type A (PCR) NEGATIVE (Negative) Influenza Type B (PCR) NEGATIVE (Negative) RSV RNA Qual (PCR) NEGATIVE (Negative) 05/01/21 Range/Units 15:38 WBC (4.8-10.8) X10*3/uL RBC (4.60-5.80) X10*6/uL Hgb (14.0-18.0) g/dl Hct (42-52) % MCV (80-98) fL MCH (27.0-33.0) pg MCHC (31.0-36.0) g/dl RDW (11.0-16.0) % Plt Count (160-400) X10*3/uL MPV (9.4-12.4) fL Immature Gran % (Auto) (0.0-0.4) % Neut % (Auto) (45-73) % Lymph % (Auto) (20-40) % [place] % (Auto) (2-11) % Eos % (Auto) (0-4) % Baso % (Auto) (0-2) % Lymph # (Auto) (1.2-4.9) X10*3/uL [place] # (Auto) (0.1-1.2) X10*3/uL Eos # (Auto) (0.0-0.4) X10*3/uL Baso # (Auto) (0.0-0.2) X10*3/uL Abs Immat Gran (auto) (0.00-0.03) X10*3/uL Absolute Neuts (auto) (2.0-8.3) X10*3/uL Absolute Nucleated RBC (0.0-0.012) X10*3/uL Nucleated RBC % (auto) (0.0-0.2) /100WBC Sodium 139 (135-145) mmol/L Potassium 4.8 D (3.3-5.1) mmol/L Chloride 103 (96-108) mmol/L Carbon Dioxide 28 (22-29) mmol/L Anion Gap 13 (12-20) BUN 19 H D (9-16) mg/dL Creatinine 1.32 (0.5-1.4) mg/dL Estim Creat Clear Calc 73.6 Estimated GFR 60 Random Glucose 93 (60-115) mg/dL Calcium 9.6 D (8.4-10.2) mg/dL Magnesium 2.2 (1.6-2.6) mg/dL Total Bilirubin 0.5 (0.0-1.0) mg/dL AST 30 D (5-37) U/L ALT 19 (0-40) U/L Alkaline Phosphatase 78 D (39-117) U/L Total Protein 7.5 D (6.5-8.0) g/dL Albumin 4.2 D (3.5-5.0) g/dL Lipase 36 (8-78) U/L Ethyl Alcohol mg/dL Coronavirus (PCR) (Negative) Influenza Type A (PCR) (Negative) Influenza Type B (PCR) (Negative) RSV RNA Qual (PCR) (Negative) Discharge Plan Discharge Clinical Impression: Polysubstance abuse, Drug intoxication Patient Disposition: Home, Self-Care Instructions: Polysubstance Abuse (ED) Prescriptions: No Action omeprazole magnesium [Prilosec OTC] 20 mg tablet,delayed release (DR/EC) 20 mg PO DAILY Qty: 30 RF: 0 buprenorphine-naloxone [Suboxone] 12-3 mg film 1 film sublingual DAILY Qty: 4 RF: 0 Referrals: [facility] [Primary Care Provider] - 2 days (your pcp) Interventions: ED Discharge Assessment Last Done: 05/01/21 17:09 Discharge Date/Time: 05/01/21 17:10 Print Language: Mozambican
[2021-05-01 16:24] LABS: Ethanol < 10 mg/dL
[2021-05-01 16:28] LABS: Alanine Aminotransferase 19 U/L (0-40); Albumin Level 4.2 g/dL (3.5-5.0); Alkaline Phosphatase 78 U/L (39-117); Anion Gap 13 (12-20); Aspartate Amino Transferase 30 U/L (5-37); Bilirubin Total 0.5 mg/dL (0.0-1.0); Blood Urea Nitrogen 19 mg/dL (9-16); Calcium 9.6 mg/dL (8.4-10.2); Carbon Dioxide 28 mmol/L (22-29); Chloride 103 mmol/L (96-108); Creatinine Clr Calc Pharmacy 73.6; Estimated Glomerular Filt Rate 60; Glucose Random 93 mg/dL (60-115); Lipase 36 U/L (8-78); Magnesium 2.2 mg/dL (1.6-2.6); Potassium 4.8 mmol/L (3.3-5.1); Sodium 139 mmol/L (135-145); Total Protein 7.5 g/dL (6.5-8.0)
[2021-05-01 16:55] LABS: Influenza A PCR NEGATIVE (Negative); Influenza B PCR NEGATIVE (Negative); Resp Syncy Virus RNA Qual PCR NEGATIVE (Negative); SARS COV2 PCR INHOUSE NEGATIVE (Negative)
== END 2021-05-01 17:10 | disposition home or self-care (01) ==
PROVIDERS: Physician Assistant Medical; Emergency Provider Emergency Medicine
DX: F11.10 Opioid abuse, uncomplicated (principal); F14.10 Cocaine abuse, uncomplicated; F12.10 Cannabis abuse, uncomplicated; Z71.51 Drug abuse counseling and surveillance of drug abuser; Z20.822 Contact with and (suspected) exposure to COVID-19; Z79.899 Other long term (current) drug therapy; F17.210 Nicotine dependence, cigarettes, uncomplicated; Z71.6 Tobacco abuse counseling
CPT/HCPCS: 0241U; 36415; 80053; 82077; 83690; 83735; 85025; 99283

== ENCOUNTER 2023-03-24 20:52 | Emergency (ER) | payer MEDICAID, SELFPAY ==
[2023-03-24 21:00] VITALS: PULSE 120; RESP 22; TEMP 36.6; O2SAT 98; BMI 28.4
--- NOTE | 2023-03-24 21:07 | PC.NURSE ---
pt alert, able to answer question, pt unable to sit still for blood pressure.
--- NOTE | 2023-03-24 21:24 | ED_ITS ---
HPI - General Adult General Chief complaint: ETOH/Substance Use Stated complaint: cocaine injection, per ems Time Seen by Provider: 03/24/23 21:20 Source: patient Mode of arrival: EMS Limitations: no limitations History of Present Illness HPI narrative: With history of cocaine abuse brought by [employer] uncooperative at the scene denies any complaints does not want any detox or help Related Data Previous Rx's Medication Instructions Recorded buprenorphine 12 mg-naloxone 3 mg 1 film sublingual DAILY #4 ea 03/06/21 sublingual film (Suboxone) omeprazole magnesium 20 mg 20 mg PO DAILY #30 tabs 03/06/21 tablet,delayed release (Prilosec OTC) Allergies Allergy/AdvReac Type Severity Reaction Status Date / Time No Known Allergies Allergy Verified 09/12/20 05:49 [No Known Allergies*] Review of Systems Review of Systems: Yes all other systems are reviewed and are negative [facility] Past Medical History Medical History Drug abuse Liver disease Social History Social History Household Members: None Housing: Homeless Do you presently have visiting nurse or other home services: No Unable to assess alcohol history related to: Unable to respond and Unknown Alcohol intake: current Alcohol intake frequency: 0-2 drinks per day Alcohol type: beer Patient Tobacco Use Status: Current someday Tobacco user Tobacco use type: Cigarette Substance Use Type: Crack/Cocaine, Heroin, Marijuana and Opiates Advance Directives: No Advance Directives Information Provided: No service: No Current occupational status: unemployed Physical Exam ED Vital Signs: Vital Signs - 24 hr 03/24/23 21:00 Temperature 98 F Pulse Rate 120 H Respiratory Rate 22 H Pulse Oximetry 98 Oxygen Delivery Method Room Air BMI result Body Mass Index 28.4 Appearance: Alert. Oriented X3. No acute distress. Eyes: PERRLA, No Nystagmus ENT: Pharynx normal. Oral Mucosa moist Neck: Normal inspection. Neck supple. CVS: Normal heart rate and rhythm. Pulses normal. Respiratory: No respiratory distress. Equal air entry bilateral, no wheezing/rales/rhonchi Abdomen: Soft and nontender. Bowel sounds are present, no mass palpable, no CVA tenderness Skin: Skin warm and dry. Normal skin color. Normal skin turgor. Extremities: No lower extremity edema. No calf tenderness Neuro: Oriented X 3. No motor deficit. No sensory deficit.No cerebellar signs , cranial nerves II-XII intact steady gait Medical Decision Making Medical Decision Making MDM Narrative: Patient's substance abuse refusing any help vital stable ambulatory at the scene discharge patient home Discharge Plan Discharge Clinical Impression: Cocaine abuse Patient Disposition: Home, Self-Care Instructions: Cocaine Abuse (ED) Additional Instructions: Follow-up with detox Prescriptions: No Action omeprazole magnesium [Prilosec OTC] 20 mg tablet,delayed release (DR/EC) 20 mg PO DAILY Qty: 30 0RF buprenorphine-naloxone [Suboxone] 12-3 mg film 1 film sublingual DAILY Qty: 4 0RF
[2023-03-24 21:31] VITALS: BP 119/89
== END 2023-03-24 21:44 | disposition home or self-care (01) ==
PROVIDERS: Emergency Provider Internal Medicine
DX: F14.10 Cocaine abuse, uncomplicated (principal); F17.210 Nicotine dependence, cigarettes, uncomplicated; B19.20 Unspecified viral hepatitis C without hepatic coma; Z79.899 Other long term (current) drug therapy
CPT/HCPCS: 99282

== ENCOUNTER 2023-04-19 22:47 | Emergency (ER) | payer MEDICAID, SELFPAY ==
--- NOTE | 2023-04-19 23:05 | ED.OVERDOSE ---
HPI - Overdose General Chief Complaint: Overdose Stated Complaint: etoh Time Seen by Provider: 04/19/23 23:02 Source: EMS Mode of arrival: EMS Limitations: altered mental status History of Present Illness HPI Narrative: Patient intoxicated likely cocaine and other substance, agitated hallucinating in the ER does not make any sense no signs of trauma or injury Related Data Previous Rx's Medication Instructions Recorded buprenorphine 12 mg-naloxone 3 mg 1 film sublingual DAILY #4 ea 03/06/21 sublingual film (Suboxone) omeprazole magnesium 20 mg 20 mg PO DAILY #30 tabs 03/06/21 tablet,delayed release (Prilosec OTC) Allergies Allergy/AdvReac Type Severity Reaction Status Date / Time No Known Allergies Allergy Verified 09/12/20 05:49 [No Known Allergies*] Review of Systems Review of Systems: Yes Unobtainable due to mental status PMFSH Past Medical History Medical History Drug abuse Liver disease Social History Social History Household Members: None Housing: Homeless Do you presently have visiting nurse or other home services: No Unable to assess alcohol history related to: Unable to respond and Unknown Alcohol intake: unknown Patient Tobacco Use Status: Current someday Tobacco user Tobacco use type: Cigarette Use of substances other than those prescribed or required for medical reasons: Yes Substance Use Type: Crack/Cocaine, Heroin, Marijuana and Opiates Advance Directives: No Advance Directives Information Provided: No service: No Current occupational status: unemployed Physical Exam Vital Signs: Vital Signs: Last Vital Signs Pulse 108 H 04/20/23 00:29 Resp 15 04/20/23 00:29 BP 113/46 L 04/20/23 00:29 Pulse Ox 95 04/20/23 00:29 O2 Del Method Room Air 04/20/23 00:29 BMI result Body Mass Index 27.4 Appearance: Alert. And awake agitated hallucinating moving all over Eyes: PERRLA, No Nystagmus ENT: Pharynx normal. Oral Mucosa moist Neck: Normal inspection. Neck supple. CVS: Normal heart rate and rhythm. Pulses normal. Respiratory: No respiratory distress. Equal air entry bilateral, no wheezing/rales/rhonchi Abdomen: Soft and nontender. Bowel sounds are present, Skin: Skin warm and dry. Normal skin color. Normal skin turgor. Extremities: No lower extremity edema. No calf tenderness Neuro: Under influence of substance? Cocaine/PCP Medications Administered Discontinued Medications Generic Name Dose Route Start Last Admin Trade Name Dacai PRN Reason Stop Dose Admin Diphenhydramine HCl 50 mg 04/19/23 23:18 04/19/23 23:23 Diphenhydramine Hcl 50 Mg/Ml Vial IM 04/19/23 23:19 50 mg ONCE ONE Administration Haloperidol Lactate 5 mg 04/19/23 23:05 04/19/23 23:10 Haloperidol Lactate 5 Mg/Ml Vial IM 04/19/23 23:06 5 mg ONCE ONE Administration Lorazepam 2 mg 04/19/23 23:05 04/19/23 23:10 Lorazepam 2 Mg/Ml Vial IM 04/19/23 23:06 2 mg ONCE ONE Administration Medical Decision Making Medical Decision Making [facility] Narrative: Patient need to be medically sedated for agitation with Haldol 5 mg, Ativan 2 mg, Benadryl 50 at this time patient is sleepy Dr. maurer look will re-evaluate when sober to discharge the patient in a.m. Discharge Plan Discharge Clinical Impression: Cocaine intoxication, Polysubstance abuse Patient Disposition: Still a Patient Prescriptions: No Action omeprazole magnesium [Prilosec OTC] 20 mg tablet,delayed release (DR/EC) 20 mg PO DAILY Qty: 30 0RF buprenorphine-naloxone [Suboxone] 12-3 mg film 1 film sublingual DAILY Qty: 4 0RF
[2023-04-19] MEDS: Haloperidol Lactate 5 MG/ML VIAL IM (23:10)
[2023-04-19] MEDS: LORazepam 2 MG/ML VIAL IM (23:10)
[2023-04-19] MEDS: diphenhydrAMINE HCL 50 MG/ML VIAL IM (23:23)
[2023-04-19 23:25] VITALS: PULSE 108; RESP 18
[2023-04-19 23:37] VITALS: BP 144/59; PULSE 109; RESP 18; O2SAT 95; BMI 27.4
[2023-04-19 23:40] VITALS: PULSE 107; RESP 16; O2SAT 94
[2023-04-19 23:55] VITALS: PULSE 100; RESP 15; O2SAT 94
--- NOTE | 2023-04-19 23:55 | PC.NURSE ---
Pt BIBA, altered mental status, pt responding but not making sense, flailing arms and legs, this rn, md and security at bedside. PT mediated with Haldol, ativan, and benadryl. Pt now resting.
[2023-04-20] VITALS (9 sets, daily range): BP systolic 100–122; BP diastolic 46–74; PULSE 63–108; RESP 10–16; TEMP 36.6–36.8; O2SAT 95–100
--- NOTE | 2023-04-20 00:30 | PC.NURSE ---
Per Dr. Dumont no blood work needed r at this time, collect urine specimen for toxicology when patient is awake.
[2023-04-20 03:49] LABS: Amphetamine Screen Urine Not Detected (Not Detect); Barbiturates, Urine Not Detected (Not Detect); Benzodiazepines Screen Urine Not Detected (Not Detect); Cannabinoid Screen Urine Not Detected (Not Detect); Cocaine Screen Urine POSITIVE (Not Detect); Fentanyl, urine POSITIVE (Not Detect); Opiate Screen Urine Not Detected (Not Detect); Phencyclidine Screen Urine Not Detected (Not Detect)
--- NOTE | 2023-04-20 08:51 | PC.NURSE ---
pt continuos on being very sleepy but does awake to gently touch and verbal, pt will report that he is in a hospital then falls right back to sleep, respirations even and unlabored, breathing about 12, and sating 100% on room air, pt is on capnography but pt taking shallow breaths so not picking up any numbers, ns on the monitor , bp stable at 115/60
--- NOTE | 2023-04-20 11:30 | PC.NURSE ---
pt given pudding and water. pt currently alert but falling asleep during bites.
--- NOTE | 2023-04-20 14:00 | PC.NURSE ---
pt still drowsy, arouses to name and able to follow commands. pt falls back asleep once not spoken to.
--- NOTE | 2023-04-20 14:11 | MHC.RECOVSUP ---
Met with pt in ED12 who is here for TOM. Pt had difficulty staying awake but reports taking about 1 bag of heroin nasally daily. Pt has had 1 recent OD and ATS last year at [facility]. PT informs he is on Methadone through [facility] but was unable to provide what dose he is on. At this time pt is not interested in any recovery supports or ATS and would like to go home after he has rested. Provider aware.
--- NOTE | 2023-04-20 16:01 | MHC.EDTECH ---
PATIENT AWAKE SAID HE WAS HUNGRY ,PUDDING GIVEN .
--- NOTE | 2023-04-20 16:07 | PC.NURSE ---
pt requests food, pudding given. pt drowsy and falling asleep in between bites.
== END 2023-04-20 18:50 | disposition home or self-care (01) ==
PROVIDERS: Emergency Provider Internal Medicine
DX: F14.120 Cocaine abuse with intoxication, uncomplicated (principal); F19.10 Other psychoactive substance abuse, uncomplicated; R45.1 Restlessness and agitation; B19.20 Unspecified viral hepatitis C without hepatic coma; F17.210 Nicotine dependence, cigarettes, uncomplicated; Z79.899 Other long term (current) drug therapy
CPT/HCPCS: 80307; 96372; 99285; J1200; J2060

== ENCOUNTER 2023-09-14 04:28 | Emergency (ER) | payer MEDICAID, SELFPAY ==
[2023-09-14] VITALS (9 sets, daily range): BP systolic 100–156; BP diastolic 44–98; PULSE 52–89; RESP 12–24; TEMP 36.8; O2SAT 98–100; BMI 26.6
--- NOTE | ~2023-09-14 | CT_ITS ---
EXAMINATION: CT head/brain wo IV con CLINICAL INFORMATION: Reason for Exam altered mental status COMPARISON: CT head 02/25/2019 TECHNIQUE: Contiguous axial imaging was performed from the skull base to vertex without intravenous contrast. Sagittal and coronal reformatted images were obtained. This CT examination was performed using dose optimization techniques as appropriate, variously including the following: * Automated exposure control * Adjustment of mA and/or kV according to patient size (this includes techniques or standardized protocols for targeted exams where dose is matched to indication/reason for exam; i.e. extremities or head) Use of iterative reconstruction technique DLP: 711.06 mGy-cm mGy-cm FINDINGS: There is no evidence of acute intracranial hemorrhage. No mass-effect or ventricular shift is noted. No acute, territorial loss of brannon-white differentiation. The ventricles and sulci are appropriate in size and configuration for the patient's stated age. No depressed calvarial fracture. Polypoid mucosal thickening in the left maxillary sinus. The mastoid air cells are clear. CT/CT head/brain wo IV con IMPRESSION: No acute intracranial hemorrhage or territorial loss of brannon-white differentiation.
--- NOTE | 2023-09-14 04:46 | ECG_ITS ---
Test Reason : SUBST ABUSE Blood Pressure : / mmHG Vent. Rate : 071 BPM Atrial Rate : 071 BPM P-R Int : 148 ms QRS Dur : 090 ms QT Int : 432 ms P-R-T Axes : 090 068 055 degrees QTc Int : 469 ms Normal sinus rhythm Normal ECG When compared with ECG of 28-FEB-2021 17:04, No significant change was found Referred By: uHng Julio Electronically Signed By:AMRIT MORFIN
[2023-09-14] MEDS: Haloperidol Lactate 5 MG/ML VIAL 10 MG IM (05:00)
[2023-09-14] MEDS: diphenhydrAMINE HCL 50 MG/ML VIAL IM (05:00)
[2023-09-14] MEDS: LORazepam 2 MG/ML VIAL IM (05:00)
[2023-09-14] MEDS: 0.9 % Sodium Chloride 1,000 ML 999 ML IV ×2 (05:42→15:42)
[2023-09-14 05:50] LABS: MANUAL DIFF FLAG NO
[2023-09-14 05:52] LABS: Basophils Percent Auto 0.4 % (0-2); Eosinophils Absolute Auto 0.1 X10*3/uL (0.0-0.4); Eosinophils Percent Auto 1.4 % (0-4); Hemoglobin 9.7 g/dl (14.0-18.0); Imm Gran Abs Auto 0.01 X10*3/uL (0.00-0.03); Imm Gran Pct Auto 0.1 % (0.0-0.4); Lymphocytes Absolute Auto 1.3 X10*3/uL (1.2-4.9); Lymphocytes Percent Auto 17.9 % (20-40); Mean Corpuscular HGB Conc 29.4 g/dl (31.0-36.0); Mean Corpuscular Hemoglobin 21.3 pg (27.0-33.0); Mean Corpuscular Volume 72.5 fL (80.0-98.0); Mean Platelet Volume 10.4 fL (9.4-12.4); Monocytes Absolute Auto 0.5 X10*3/uL (0.1-1.2); Monocytes Percent Auto 7.3 % (2-11); Neutrophils Absolute Auto 5.2 x10*3/uL (2.0-8.3); Neutrophils Percent Auto 72.9 % (45-73); Platelet Count 253 X10*3/uL (160-400); Red Blood Count 4.55 X10*6/uL (4.60-5.80); Red Cell Distribution Width 18.6 % (11.0-16.0); White Blood Count 7.1 X10*3/uL (4.8-10.8)
[2023-09-14 05:58] LABS: Partial Thromboplastin Time 28.8 SEC (26.0-36.4)
[2023-09-14 06:06] LABS: Alanine Aminotransferase 26 U/L (0-40); Albumin Level 3.7 g/dL (3.5-5.0); Alkaline Phosphatase 63 U/L (39-117); Anion Gap 14 (12-20); Aspartate Amino Transferase 53 U/L (5-37); Bilirubin Total 0.3 mg/dL (0.0-1.0); Blood Urea Nitrogen 18 mg/dL (9-16); Calcium 8.4 mg/dL (8.4-10.2); Carbon Dioxide 24 mmol/L (22-29); Chloride 108 mmol/L (96-108); Creatinine Clr Calc Pharmacy 88.6; Estimated Glomerular Filt Rate > 60; Ethanol < 10 mg/dL; Glucose Random 103 mg/dL (60-115); Lipase 16 U/L (8-78); Potassium 3.5 mmol/L (3.3-5.1); Sodium 142 mmol/L (135-145); Total Protein 6.6 g/dL (6.5-8.0)
[2023-09-14 06:09] LABS: Troponin-I High Sensitivity < 2.7 ng/L (<3.5-35.0)
--- NOTE | 2023-09-14 07:32 | ED.ALCOHOL ---
HPI - Alcohol General Chief Complaint: ETOH/Substance Use Stated Complaint: substance abuse Time Seen by Provider: 09/14/23 04:45 Source: EMS Mode of arrival: EMS Limitations: altered mental status History of Present Illness HPI narrative: 42-year-old male brought to the emergency department by ambulance after being found unresponsive by police. Was reported that the patient has use cocaine and heroin. According to EMS at the scene the patient was speaking in full sentences, was very combative. Patient arrived in the emergency department was restless, agitated, threatening to staff. I went into the room to evaluate the patient he was standing up against the wall surrounded by security and nursing staff. He appeared to be very agitated. I ordered Haldol 10 mg IM, lorazepam 2 mg IM and diphenhydramine 50 mg IM. I was able to convince the patient to sit on the stretcher and taken sure to off so that we could medicate him to make it feel better. The nursing staff was able to give him a 2 IM injections and the patient cooperated and did not need to be physically restrained. Related Data Previous Rx's Medication Instructions Recorded buprenorphine 12 mg-naloxone 3 mg 1 film sublingual DAILY #4 ea 03/06/21 sublingual film (Suboxone) omeprazole magnesium 20 mg 20 mg PO DAILY #30 tabs 03/06/21 tablet,delayed release (Prilosec OTC) Allergies Allergy/AdvReac Type Severity Reaction Status Date / Time No Known Allergies Allergy Verified 09/14/23 04:46 [No Known Allergies*] Review of Systems Review of Systems: Yes all other systems are reviewed and are negative [facility] Past Medical History [facility] Narrative: Past medical history: Polysubstance use disorder (cocaine, opiate) Medical History Drug abuse Liver disease Social History Social History Household Members: None Housing: Homeless Do you presently have visiting nurse or other home services: No Unable to assess alcohol history related to: Unable to respond and Unknown Alcohol intake: unknown Patient Tobacco Use Status: Current someday Tobacco user Tobacco use type: Cigarette Substance Use Type: Crack/Cocaine, Heroin, Marijuana and Opiates Advance Directives: Yes Advance Directives on File: Yes Advance Directives Date on File: 09/12/20 service: No Current occupational status: unemployed Physical Exam ED Vital Signs: Vital Signs - 24 hr 09/14/23 05:01 09/14/23 05:39 09/14/23 06:00 Pulse Rate 89 70 69 Respiratory Rate 24 H 14 12 Blood Pressure 103/45 L 101/47 L Pulse Oximetry 98 100 99 Oxygen Delivery Method Room Air Nasal Cannula Nasal Cannula Oxygen Flow Rate 2 2 09/14/23 07:47 Pulse Rate 52 Respiratory Rate 12 Blood Pressure 134/78 Pulse Oximetry 100 Oxygen Delivery Method Room Air Oxygen Flow Rate BMI result Body Mass Index 26.6 Vital signs revealed elevated respiratory rate of 24 otherwise unremarkable. Exam General: Patient agitated, threatening staff, appears combative Head: Normocephalic, atraumatic EENT: PERRL, Lids normal, sclera normal, conjunctiva normal, nose normal , ears normal, throat without erythema or exudates Neck: Supple, no adenopathy, no trachea midline or C-spine tenderness Lung: breath sounds symmetric, no wheezing, rales or rhonchi Chest: symmetric movement, nontender Heart: regular rate and rhythm, normal S1, S2 no murmurs or rubs Abdomen: soft, non-tender, nondistended, normal bowel sounds Back: no vertebral tenderness, no CVAT Extremities: no deformities, moves all extremities symmetrically Medical Decision Making Medical Decision Making MDM Narrative: 42-year-old male with a history of polysubstance use disorder was brought to emergency department by EMS for evaluation possible cocaine and heroin use, patient was agitated and combative. I was able to convince the patient to lie on the stretcher and take IM medications to help calm down. Patient was given Haldol 10 mg IM, Benadryl 50 mg IM and Ativan 2 mg IM which successfully sedated the patient. Following evaluation was ordered: CBC, CMP, CK, PTT, urine drug screen, ethanol level, troponin, lipase, lactic acid 07:42 My independent interpretation patient's laboratory evaluation is as follows: BUN elevated 18. CK elevated 1937. Troponin below detectable limits. Alcohol below detectable limits. Urine drug screen pending collection. Patient was ordered to get lactated Ringer's IV x2. At the end of my shift, patient's care was turned over to my colleague, Dr. Yovani Noguera. Differential Diagnosis Differential Diagnoses: The differential diagnosis associated with the presentation includes Differential diagnosis includes was not limited to cocaine use, marijuana use, heroin use, rhabdomyolysis, electrolyte abnormalities, anemia Lab Data MDM Lab Attestation statement: I reviewed the patient's lab results. 09/14/23 05:39 09/14/23 05:39 Labs: Lab Results 09/14/23 Range/Units 05:39 WBC 7.1 (4.8-10.8) X10*3/uL RBC 4.55 L (4.60-5.80) X10*6/uL Hgb 9.7 L (14.0-18.0) g/dl Hct 33.0 L (42.0-52.0) % MCV 72.5 L (80.0-98.0) fL MCH 21.3 L (27.0-33.0) pg MCHC 29.4 L (31.0-36.0) g/dl RDW 18.6 H (11.0-16.0) % Plt Count 253 (160-400) X10*3/uL MPV 10.4 (9.4-12.4) fL Immature Gran % (Auto) 0.1 (0.0-0.4) % Neut % (Auto) 72.9 (45-73) % Lymph % (Auto) 17.9 L (20-40) % [place] % (Auto) 7.3 (2-11) % Eos % (Auto) 1.4 (0-4) % Baso % (Auto) 0.4 (0-2) % Lymph # (Auto) 1.3 (1.2-4.9) X10*3/uL [place] # (Auto) 0.5 (0.1-1.2) X10*3/uL Eos # (Auto) 0.1 (0.0-0.4) X10*3/uL Baso # (Auto) 0.0 (0.0-0.2) X10*3/uL Abs Immat Gran (auto) 0.01 (0.00-0.03) X10*3/uL Absolute Neuts (auto) 5.2 (2.0-8.3) x10*3/uL Absolute Nucleated RBC 0.000 (0.0-0.012) X10*3/uL Nucleated RBC % (auto) 0.0 (0.0-0.2) /100WBC APTT 28.8 (26.0-36.4) SEC Sodium 142 (135-145) mmol/L Potassium 3.5 D (3.3-5.1) mmol/L Chloride 108 (96-108) mmol/L Carbon Dioxide 24 (22-29) mmol/L Anion Gap 14 (12-20) BUN 18 H (9-16) mg/dL Creatinine 1.04 (0.5-1.4) mg/dL Estim Creat Clear Calc 88.6 Estimated GFR > 60 Random Glucose 103 (60-115) mg/dL Lactic Acid 1.0 (0.5-2.0) mmol/L Calcium 8.4 D (8.4-10.2) mg/dL Total Bilirubin 0.3 (0.0-1.0) mg/dL AST 53 H (5-37) U/L ALT 26 (0-40) U/L Alkaline Phosphatase 63 (39-117) U/L Total Creatine Kinase 1937 H (38-174) U/L Troponin I High Sens < 2.7 (<3.5-35.0) ng/L Total Protein 6.6 (6.5-8.0) g/dL Albumin 3.7 (3.5-5.0) g/dL Lipase 16 (8-78) U/L Ethyl Alcohol < 10 mg/dL Independent Interpretation I performed an independent interpretation of an: EKG Interpretation: My independent interpretation patient's 12 EKG done at 05:40 hours is as follows: Normal sinus rhythm with a rate of 71, normal TX interval of 148, normal QRS duration of 90, normal QTC interval 469, no ST segment elevation, no ST segment depression, no PACs, no PVCs, no T-wave abnormalities. Independent Historian Clinical information obtained from an independent historian. History obtained from or confirmed by: EMS Chronic Conditions Patient?s care impacted by: Other (Polysubstance use disorder) Medications Administered Generic Name Dose Route Start Last Admin Trade Name Freq PRN Reason Stop Dose Admin Lactated Ringer's 1,000 mls @ 999 mls/hr 09/14/23 07:45 09/14/23 07:44 Lr IV 09/14/23 08:45 999 mls/hr .Q1H1M DARÍO Administration Discontinued Medications Generic Name Dose Route Start Last Admin Trade Name Dacia PRN Reason Stop Dose Admin Diphenhydramine HCl 50 mg 09/14/23 04:45 09/14/23 05:00 Diphenhydramine Hcl 50 Mg/Ml Vial IM 09/14/23 04:46 50 mg ONCE ONE Administration Haloperidol Lactate 10 mg 09/14/23 04:45 09/14/23 05:00 Haloperidol Lactate 5 Mg/Ml Vial IM 09/14/23 04:46 10 mg ONCE ONE Administration Sodium Chloride 1,000 mls @ 999 mls/hr 09/14/23 04:46 09/14/23 05:42 Ns IV 09/14/23 05:46 999 mls/hr .Q1H1M STA Administration Lorazepam 2 mg 09/14/23 04:45 09/14/23 05:00 Lorazepam 2 Mg/Ml Vial IM 09/14/23 04:46 2 mg ONCE ONE Administration Discharge Plan Discharge Clinical Impression: Polysubstance use disorder, Rhabdomyolysis Patient Disposition: Still a Patient Prescriptions: No Action omeprazole magnesium [Prilosec OTC] 20 mg tablet,delayed release (DR/EC) 20 mg PO DAILY Qty: 30 0RF buprenorphine-naloxone [Suboxone] 12-3 mg film 1 film sublingual DAILY Qty: 4 0RF
[2023-09-14] MEDS: Lactated Ringers 1,000 ML 999 ML IV ×2 (07:44→10:00)
[2023-09-14 18:28] LABS: Appearance Urine Clear; Color Urine Yellow; Glucose Urine UA Negative (Negative); Leukocyte Esterase Urine Negative (Negative); Nitrite Urine Negative (Negative); PH 5.5 (5.0-9.0); Urine Blood Negative (Negative); Urine Ketones 15 mg/dL (Negative); Urine Protein Negative (Neg-Trace)
[2023-09-14 18:38] LABS: Amphetamine Screen Urine Not Detected (Not Detect); Barbiturates, Urine Not Detected (Not Detect); Benzodiazepines Screen Urine Not Detected (Not Detect); Cannabinoid Screen Urine POSITIVE (Not Detect); Cocaine Screen Urine POSITIVE (Not Detect); Opiate Screen Urine POSITIVE (Not Detect); Phencyclidine Screen Urine Not Detected (Not Detect)
[2023-09-14 18:51] LABS: Fentanyl, urine POSITIVE (Not Detect)
== END 2023-09-14 19:00 | disposition home or self-care (01) ==
PROVIDERS: Emergency Medicine Emergency Medical Services; Emergency Provider Emergency Medicine
DX: F19.10 Other psychoactive substance abuse, uncomplicated (principal); M62.82 Rhabdomyolysis; R45.1 Restlessness and agitation; F11.20 Opioid dependence, uncomplicated; Z79.899 Other long term (current) drug therapy; F17.210 Nicotine dependence, cigarettes, uncomplicated
CPT/HCPCS: 36415; 70450; 80053; 80307; 81003; 82550; 83605; 83690; 84484; 85025; 85730; 93005; 96360; 96361; 96372; 99284; 99285; J1200; J1630; J2060; J7120

== ENCOUNTER → 2023-09-14 04:46 | Outpatient (BNV) | payer MEDICAID, SELFPAY | PROVIDERS: Emergency Provider Emergency Medicine; Visit Provider Internal Medicine | DX: R41.82 Altered mental status, unspecified (principal) | CPT/HCPCS: 93010 ==

== ENCOUNTER 2024-03-21 09:31 | Outpatient (REF) | payer MEDICAID, SELFPAY ==
[2024-03-21 15:55] LABS: Alanine Aminotransferase 17 U/L (0-40); Albumin Level 3.8 g/dL (3.5-5.0); Alkaline Phosphatase 96 U/L (39-117); Aspartate Amino Transferase 21 U/L (5-37); Bilirubin Direct 0.1 mg/dL (0.0-0.5); Bilirubin Total 0.3 mg/dL (0.0-1.0); Total Protein 7.2 g/dL (6.5-8.0)
[2024-03-22 08:25] LABS: HIV AB/AG Nonreactive (Nonreactive); HIV Num 1 0.05 S/CO (0.00-0.99)
[2024-03-22 08:48] LABS: Syphilis Screen Nonreactive (Nonreactive)
[2024-03-24 02:18] LABS: TS Negative Control Passed; TS Panel A 0; TS Panel B 0; TS Positive Control Passed; TSpotTB Negative (Negative)
[2024-03-24 15:04] LABS: HCV Log PCR <1.18 NOT DETECTED Log IU/mL (NOT DETECTED); HepC Viral Load <15 NOT DETECTED IU/mL (NOT DETECTED)
== END 2024-03-21 09:32 | disposition home or self-care (01) ==
LOC: HO.HHCL 09:31
PROVIDERS: Visit Provider Family Medicine
DX: F11.20 Opioid dependence, uncomplicated (principal); Z86.19 Personal history of other infectious and parasitic diseases
CPT/HCPCS: 36415; 80076; 86481; 86780; 87389; 87522

== ENCOUNTER 2024-09-05 12:56 | Outpatient (AMB) | payer MEDICAID, SELFPAY ==
--- NOTE | 2024-09-05 13:28 | MHC.OFFVIS ---
Vital Signs 09/05/24 13:30 Height 5 ft 8 in Weight 190 lb BMI 28.9 Handedness Right Intake Visit Reasons: [employer]OM[employer]: right hand dorsal ganglion cyst Intake Note: Zi is a 43 year old right hand dominant male who presents today as a new patient for a right hand ganglion cyst. The cyst is on the dorsal aspect of the right hand. Patient reports he noticed this 8 years ago however it was smaller in size. He does not have an exact time of when he noticed it grow in size. Denies pain, numbness and tingling. 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 Patient reports that this mass has been present for least 10-11 years, but states that it has grown very slowly to the point where he is very bothered by it now. The patient reports that this mass causes him no pain or discomfort, but he is very bothered by the appearance. Patient reports that the mass is soft, mobile, and does not ever get red or swollen. Patient denies any numbness or tingling in the right hand. Patient does report a history significant for polysubstance use, but states that he no longer uses the substances. No other acute complaints or concerns at this time. [facility] Medical History Drug abuse Liver disease Social History (Updated 09/05/24 @ 13:32 by JOSE Palacios) Household Members: None Housing: Homeless Do you presently have visiting nurse or other home services: No Unable to assess alcohol history related to: Unable to respond and Unknown Alcohol intake: unknown Patient Tobacco Use Status: Former Tobacco user Non Cigarette Tobacco use how long: uses nicotine patches Substance Use Type: Crack/Cocaine, Heroin, Marijuana and Opiates Advance Directives Date on File: 09/12/20 service: No Current occupational status: unemployed Review of Systems Const All systems reviewed & are unremarkable except as noted in HPI and below Physical Exam Vital Signs: BMI result Body Mass Index 28.9 Extrem Other: Patient is alert, oriented, and in no acute distress. Neuro: Normal sensation of the tips of all digits of the right hand at this time Vascular: Cap refill brisk Pain: No tenderness to palpation about the mass on the dorsal right hand No pain with range of motion of the right hand ROM: Patient is able to make a closed fist and extend all digits of the right hand fully and without difficulty Skin: There is noted to be in approximately 4-5 cm in diameter soft, mobile mass noted on the dorsal aspect of the patient's right hand No lacerations or abrasions. General: No ecchymosis, erythema, or evidence of infection. Psych: Appears grossly normal Affect normal Attitude cooperative Assessment & Plan Assessment & Plan (1) Subcutaneous mass of right hand: Code(s): R22.31 - Localized swelling, mass and lump, right upper limb Category: Medical Plan 1. Mass of dorsum of right hand Present for approximately 10 years I educated the patient about the condition. I discussed both operative and nonoperative treatment options. The patient would like to proceed with surgery. The risks and benefits of operative treatment were discussed with the patient and the patient wishes to proceed with surgery. These risks include, but are not limited to, risk of damage to blood vessels, nerves, tendons, infection, recurrence, incomplete relief of preoperative symptoms, persistent pain, possible need for further surgery, and the risks associated with regional blocks and/or anesthesia. Plan is to take the patient to the operating room at some point in the next few weeks for the following procedures: 1. Dorsal hand mass excision, right, under general anesthesia All of the preoperative paperwork including the consent was discussed today. All of the patient's questions were answered in the clinic today. The patient understands that they will be in contact with our surgical instrument repair specialist to discuss scheduling their procedure. Patient denies diabetes, blood thinners, asthma, heart issues, lung issues, kidney issues, or current smoking. Coding Level of Care Code New Pt Level 4 (92819) Diagnoses Subcutaneous mass of right hand R22.31
[2024-09-05 13:30] VITALS: BMI 28.9
== END 2024-09-05 14:15 | disposition home or self-care (01) ==
DX: R22.31 Localized swelling, mass and lump, right upper limb (principal)
CPT/HCPCS: 99204

== ENCOUNTER → 2024-09-05 12:56 | Outpatient (BNVA) | payer MEDICAID, SELFPAY | DX: R22.31 Localized swelling, mass and lump, right upper limb (principal) | CPT/HCPCS: 99212 ==

== ENCOUNTER 2024-10-06 19:13 | Emergency (ER) | payer MEDICAID, SELFPAY ==
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
[2024-10-06 19:23] VITALS: BP 143/107; PULSE 70; RESP 16; TEMP 37.3; O2SAT 97; BMI 28.9
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
[2024-10-06 22:18] VITALS: BP 128/87; PULSE 54; RESP 20; TEMP 36.9; O2SAT 97
[2024-10-06 23:53] LABS: MANUAL DIFF FLAG NO
[2024-10-06 23:55] LABS: Basophils Absolute Auto 0.1 X10*3/uL (0.0-0.2); Basophils Percent Auto 0.8 % (0-2); Eosinophils Absolute Auto 0.1 X10*3/uL (0.0-0.4); Eosinophils Percent Auto 1.1 % (0-4); Hemoglobin 13.8 g/dl (14.0-18.0); Imm Gran Abs Auto 0.01 X10*3/uL (0.00-0.03); Imm Gran Pct Auto 0.2 % (0.0-0.4); Lymphocytes Absolute Auto 2.3 X10*3/uL (1.2-4.9); Lymphocytes Percent Auto 35.4 % (20-40); Mean Corpuscular HGB Conc 32.1 g/dl (31.0-36.0); Mean Corpuscular Hemoglobin 28.5 pg (27.0-33.0); Mean Corpuscular Volume 88.7 fL (80.0-98.0); Mean Platelet Volume 11.3 fL (9.4-12.4); Monocytes Absolute Auto 0.5 X10*3/uL (0.1-1.2); Monocytes Percent Auto 7.6 % (2-11); Neutrophils Absolute Auto 3.6 x10*3/uL (2.0-8.3); Neutrophils Percent Auto 54.9 % (45-73); Platelet Count 209 X10*3/uL (160-400); Red Blood Count 4.85 X10*6/uL (4.60-5.80); Red Cell Distribution Width 13.6 % (11.0-16.0); White Blood Count 6.6 X10*3/uL (4.8-10.8)
[2024-10-07 00:11] LABS: Anion Gap 13 (12-20); Blood Urea Nitrogen 15 mg/dL (9-16); Calcium 8.9 mg/dL (8.4-10.2); Carbon Dioxide 27 mmol/L (22-29); Chloride 106 mmol/L (96-108); Creatinine Clr Calc Pharmacy 89.7; Estimated Glomerular Filt Rate > 60; Glucose Random 93 mg/dL (60-115); Sodium 142 mmol/L (135-145)
[2024-10-07] MEDS: iohexoL 350 MG/ML 100 ML INFUS..BTL 85 ML IV (01:03)
[2024-10-07] MEDS: Bacitracin Oint 0.9 GM PACKET 1 APPL TOPICAL (02:24)
[2024-10-07] MEDS: Ibuprofen 600 MG TABLET PO (02:38)
[2024-10-07] MEDS: Acetaminophen 325 MG TABLET 975 MG PO (02:39)
[2024-10-07] MEDS: cephALEXin 500 MG CAPSULE 1000 MG PO (02:39)
[2024-10-07 02:47] VITALS: BP 128/87; PULSE 54; RESP 20; TEMP 36.9; O2SAT 97
== END 2024-10-07 02:47 | disposition home or self-care (01) ==
PROVIDERS: Emergency Provider Emergency Medicine
DX: S21.112A Laceration without foreign body of left front wall of thorax without penetration into thoracic cavity, initial encounter (principal); W25.XXXA Contact with sharp glass, initial encounter; Y93.89 Activity, other specified; Y92.9 Unspecified place or not applicable; Y99.9 Unspecified external cause status
CPT/HCPCS: 36415; 71046; 71260; 80048; 85025; 99284; Q9967

== ENCOUNTER → 2024-10-06 19:25 | Outpatient (BNV) | payer MEDICAID, SELFPAY | PROVIDERS: Visit Provider Radiology Diagnostic Radiology | DX: S21.90XA Unspecified open wound of unspecified part of thorax, initial encounter (principal) | CPT/HCPCS: 71046 ==

== ENCOUNTER → 2024-10-07 00:05 | Outpatient (BNV) | payer MEDICAID, SELFPAY | PROVIDERS: Emergency Provider Emergency Medicine; Visit Provider General Practice | DX: S21.90XA Unspecified open wound of unspecified part of thorax, initial encounter (principal) | CPT/HCPCS: 71260 ==

== ENCOUNTER 2024-11-14 14:42 | Outpatient (REF) | payer MEDICAID, SELFPAY ==
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
--- OUTSIDE RECORDS SUMMARY | 2024-11-14 17:31 | XMS_ITS | Encounter Summary ---
Author Organization [facility] Address [address] [place] [address] [address] [place] [address] Care Team Providers Care Fluxer Name Role Phone Buddy Thomas MD Primary Care Prov ider Reason for Visit * Reason Onset Date Comments New Patient Appt 01/22/2023 Encounter Details Date Type Department Care Team (Late st Contact Info) Description 01/22/2023 Telephone [facility] [address] [place] [address] Janene Carver MD [address] [place] [address] New Patient Appt Social History Tobacco Use Types Packs/Day Years Used Date Smoking Tobacco: Never Assessed Sex and Gender Information Value Date Recorded Sex Assigned at Male 07/14/2022 10:15 AM EDT Legal Sex Male 10:15 AM EDT Gender Identity Male 07/14/2022 10:15 AM EDT Sexual Orientation Straight 07/14/2022 10 :15 AM EDT documented as of this encounter Miscellaneous Notes * Telephone Encounter - Laxmi Swift - 01/22/2023 12:51 PM EDT New Patients Par Laxmi Garcia called to schedule New patient appt, pt did not answer left voicemail to give a call at [phone]. documented in this encounter Plan of Treatment Not on file documented as of this encounter Visit Diagnoses Not on filedocumented in this encounter Care Teams Fluxer Relationship Specialty Start Date End Date Buddy Thomas MD [address] [place] [address] PCP - General Internal Medicine 07/21/24 documented as of this encounter
--- OUTSIDE RECORDS SUMMARY | 2024-11-14 17:31 | XMS_ITS | Encounter Summary ---
Author Organization [employer] [facility] Address [address] [facility] 7[address] [place] [address] Care Team Providers Care Brusher Hand Name Role Phone Buddy Thomas MD Primary Care Prov ider Encounter Details Date Type Department Care Team (Latest Contact Info) Description 11/14/2024 Travel Social History Tobacco Use Types Packs/Day Years [...] AM EDT documented as of this encounter Plan of Treatment Not on file documented as of this encounter Visit Diagnoses Not on filedocumented in this encounter Additional Health Concerns Assessment Noted Time PHQ-9 Depression Total Score: 13 024 2:54 PM EDT documented as of this encounter Care Teams Brusher Hand Relationship Specialty Start Date End Date Buddy Thomas MD [address] [place] [address] PCP - General Internal Medicine 07/21/24 documented as of this encounter
--- OUTSIDE RECORDS SUMMARY | 2024-11-14 17:31 | XMS_ITS | Encounter Summary ---
Author Organization [employer] Address [address] [place] [address] [address] [place] [address] Care Team Providers Care Superintendent Operations Division Name Role Phone Buddy Thomas MD Primary Care Prov ider Reason for Visit * Reason Onset Date Comments Med Refill 11/09/2024 Encounter Details Date Type Department Care Team (Late st Contact Info) Description 11/09/2024 Refill [facility] [address] [place] [address] Kayce Roger RN Opioid dependence, uncomplicated (CMS/HCC) Social History Tobacco [...] documented as of this encounter Visit Diagnoses Diagnosis Opioid dependence, uncomplicated (CMS/HCC) documented in this encounter Additional Health Concerns Assessment Noted Time PHQ-9 Depression Total Score: 13 024 2:54 PM EDT documented as of this encounter Care Teams Superintendent Operations Division Relationship Specialty Start Date End Date Buddy Thomas MD [address] [place] [phone] PCP - General Internal Medicine 07/21/24 documented as of this encounter
--- OUTSIDE RECORDS SUMMARY | 2024-11-14 17:31 | XMS_ITS | Encounter Summary ---
Author Organization [employer] [facility] Address [address] [place] [address] [address] [place] [address] Care Team Providers Care Assistant Professor Of Education Name Role Phone Buddy Thomas MD Primary Care Prov ider Reason for Visit * Reason Onset Date Comments New Patient 03/09/2024 Encounter Details Date Type Department Care Team (Late st Contact Info) Description 03/09/2024 Telephone [facility] [address] [place], [place] [phone] Preet Wilson MD [address] [place], [place] [phone] New Patient Social History Tobacco Use Types Packs/Day Years Used Date Smoking Tobacco: Never Assessed Sex and Gender Information Value Date Recorded Sex Assigned at Male 07/14/2022 10:15 AM EDT Legal Sex Male 10:15 AM EDT Gender Identity Male 07/14/2022 10:15 AM EDT Sexual Orientation Straight 07/14/2022 10 :15 AM EDT documented as of this encounter Miscellaneous Notes * Telephone Encounter - Douglas Slater - 03/09/2024 1:35 PM EDT TC from caller requesting NEW PATIENT visit Medical Conditions: None stated Insurance name: [email or web address] (In Chart) Demographic information updated (Prefers [place]) documented in this encounter Plan of Treatment Not on file documented as of this encounter Visit Diagnoses Not on filedocumented in this encounter Care Teams Assistant Professor Of Education Relationship Specialty Start Date End Date Buddy Thomas MD [address] [place], [place] [address] [address] PCP - General Internal Medicine 07/21/24 documented as of this encounter
--- OUTSIDE RECORDS SUMMARY | 2024-11-14 17:31 | XMS_ITS | Encounter Summary ---
Author Organization [employer] Address [address] [address] [place] [address] Care Team Providers Care Geological Technical Officer Name Role Phone Buddy Thomas MD Primary Care Prov ider Reason for Visit * Reason Onset Date Comments Med Refill 11/01/2024 Encounter Details Date Type Department Care Team (Late st Contact Info) Description 11/01/2024 Refill [facility] MED[facility]INE [address] [place] [address] Buddy Thomas MD [address] [place], [place] [phone] Social History Tobacco Use Types Packs/Day Years [...] encounter Miscellaneous Notes * Telephone Encounter - Festus Chowdhury - 11/01/2024 1:52 PM EST TC from pt requesting medication refill. Medications needing refill : nicotine (Nicoderm CQ) 14 MG/24HR patch Viagra 100 mg To be sent to: [facility]/pharmacy #[id number] - [place] - [phone] [facility] Viagra to be sent to [facility] pharmacy documented in this encounter Plan of Treatment Not on file documented as of this encounter Visit Diagnoses Not on filedocumented in this encounter Additional Health Concerns Assessment Noted Time PHQ-9 Depression Total Score: 13 024 2:54 PM EDT documented as of this encounter Care Teams Geological Technical Officer Relationship Specialty Start Date End Date Buddy Thomas MD [address] [place] [id number] PCP - General Internal Medicine 07/21/24 documented as of this encounter
--- OUTSIDE RECORDS SUMMARY | 2024-11-14 17:31 | XMS_ITS | Encounter Summary ---
Author Organization [employer] Address [address] [facility] 7t [place] [address] Care Team Providers Care Dev Manager Name Role Phone Buddy Thomas MD Primary Care Prov ider Reason for Visit * Reason Comments Med Refill Encounter Details Date Type Department Care Team ([facility] st Contact Info) Description 11/09/2024 Refill [facility] PEDS [address] [place] [address] Jessy Rios MD [address] [place] [address] Social History Tobacco Use Types Packs/Day Years [...] documented as of this encounter Care Teams Dev Manager Relationship Specialty Start Date End Date Buddy Thomas MD [address] [place] [address] PCP - General Internal Medicine 07/21/24 documented as of this encounter
--- OUTSIDE RECORDS SUMMARY | 2024-11-14 17:31 | XMS_ITS | Encounter Summary ---
Author Organization [employer] Address [address] [place] [address] [address] [place] [address] Care Team Providers Care Fire Operations Forester Name Role Phone Buddy Thomas MD Primary Care Prov ider Reason for Visit * Reason Comments Med Refill Encounter Details Date Type Department Care Team ([facility] st Contact Info) Description 11/09/2024 Refill [facility] [address] [place] [address] Buddy Thomas MD [address] [place] [address] Social History Tobacco Use Types Packs/Day Years [...] documented as of this encounter Care Teams Fire Operations Forester Relationship Specialty Start Date End Date Buddy Thomas MD [address] [place] [phone] PCP - General Internal Medicine 07/21/24 documented as of this encounter
--- OUTSIDE RECORDS SUMMARY | 2024-11-14 17:31 | XMS_ITS | Encounter Summary ---
Author Organization [employer] Address [address] [place] [address] [address] [place] [address] Care Team Providers Care Team Leader/Research Psychologist Name Role Phone Buddy Thomas MD Primary Care Prov ider Reason for Visit * Reason Onset Date Comments Medication Question 11/10/2024 Encounter Details Date Type Department Care Team ([facility] st Contact Info) Description 11/10/2024 Telephone [facility] MED [facility] PEDS [address] [place] [address] Buddy Thomas MD [address] [place] [address] Medication Question Social History Tobacco Use Types Packs/Day Years [...] encounter Miscellaneous Notes * Telephone Encounter - Yolanda Borrero RN - 11/10/2024 1:46 PM EST TC from [facility] pharmacy. Pharmacist stated that pt is on [facility] and needs a 90 day supply for omeprazole not a 60 day supply ordered from provider. Routing message to provider for review and recommendation documented in this encounter Plan of Treatment Not on file documented as of this encounter Visit Diagnoses Not on filedocumented in this encounter Additional Health Concerns Assessment Noted Time PHQ-9 Depression Total Score: 13 024 2:54 PM EDT documented as of this encounter Care Teams Team Leader/Research Psychologist Relationship Specialty Start Date End Date Buddy Thomas MD [address] [place] [address] PCP - General Internal Medicine 07/21/24 documented as of this encounter
--- OUTSIDE RECORDS SUMMARY | 2024-11-14 17:31 | XMS_ITS | Data Portability ---
Author Organization [place] - [employer], [place]_Medical_Veronica Gomez Address [address] [place] [address] Assessment Encounter Date Assessment Date Assessment LastModified by Organization Details LastModified Time 08/26/2023 08/26/2023 This patient with a history of OUD presents today for Initial visit. They are seeking treatment with Buprenorphine films/tabs The patient's current phase of treatment is stabilization phase. See HPI for detailed history of TOM SUMMARY OF CURRENT SUBSTANCE USE: Substance use history : (including first use age, progression, last use, quantity, route) Opioids :FIRST AGE OF PERCOCET AT AGE 36 Y/O, HAD BEEN PRESCRIBED PERCOCET, BUT WHEN NO LONGER AVAILABLE BOUGHT ON STRE[address]. LAST TIME USED PERCOCET: LONG TIME AGO. THEN TRANSITION TO SNIFFING HEROIN 2 BUNDLES DAILY, FENTANYL CROSS CONTAMIMATED WITH IT.. LAST TIME USED 2 MONTHS AGO. NEVER INJECTION HEROIN/FENTANYL CURRENTLY ON SBX 16 MG/4MG. TOOK LAST DOSE TODAY REMAINING FILMS 0 HAS NARCAN IN HOME, NO RX NEEDED OD X 2, LAST TIME LAST YEAR. EtOH : LAST TIME DRANK ALCOHOL 3 TO 4 YEARS AGO. DENIES ABUSE OR ISSUES WITH ALCOHOL Cocaine : FIRST AGE OF COCAINE USE AT 29, SNIFFING. WOULD NOT USE A LOT. LAST TIME USED: 2 MONTHS AGO. Stimulants : DENIES ANY USE Benzodiazepines : DID ADMITS TO BEING PRESCRIBED CLONAZEPAM FOR SLEEP, HAD TAKEN DIRECTED, BUT THEN STARTED BUYING ON STREET. LAST TIME: A WHILE AGO. Marijuana : ADMITTED TO MARIJUANA USE IN PAST. LAST TIME: 10 YEARS. Nicotine : QUIT SMOKING 2 MONTHS. Other substances : DENIES ANY OTHER DRUGS. MEDICAL : -- Current medical concerns: INSOMNIA, OUD, HX OF HEP C, REFLUX, INSOMNIA-- ON OMEPRAZOLE AND TRAZODONE. -- PCP Name: NOREEN GUILLEN PSYCHO SOCIAL : -- Housing Stability/Safety: LIVES WITH MOTHER OR HIS GIRLFRIEND OF 7 YEARS, CALLS HER HIS . -- Family: SUPPORTIVE FAMILY AND GIRLFRIEND -- Employment: UNEMPLOYED -- Legal: DENIES --TRANSPORTATION: [facility] TRANSPORTATION SET UP FOR PT. --Counseling: WILL REFER TO [facility] OUD: ON SUBOXONE 16MG/4 MG DAILY AND C/W WITH THIS DOSING. SOBER X 2 MONTHS. MTD NEG BUP STICK POS INITIAL LABS DRAWN TODAY. PLAN: weekly visit, pt explained [facility] requirements, new patient handout given today. VISITS ? w eekly UNTIL HAS 8 NEG UDS AND STABLE IN RECOVERY FOR STRUCTURE/SUPPORT UDT ORDERED TODAY FOR EVALUATION OF ILLICIT DRUG USE/RELAPSE. DEFINITIVE CONFIRMATION TESTING TO BE DONE IF NEEDED. PT TO SIGN RONNIE SO ABLE TO HAVE GF/ PRESENT IN VISIT OD PREVENTION: CONTINUE WITH PLAN ABOVE. 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 HAS NARCAN/TRAINED ON ADMINISTRATION. DIVERSION PREVENTION: WILL MONITOR MASSPAT, UDS/SVT/ BUP LEVELS FOR PROGRESS, RELAPSE, DIVERSION AND FOR HARM REDUCTION NICOTINE DEPENDENCE: QUIT SMOKING, HAS NRT 14 MG PATCHES COCAINE USE: Pt is aware of risks of cocaine use including CV risks, fent/xylazine contamination and risk of overdose and . STOPPED USING COCAINE 2 MONTHS AGO. HEP C: REPORTS RE INFECTED. HAD INITIAL LABS DRAWN TODAY. PT TO F/U WITH PCP MAY NEED TO SEE ID /GI SPECIALIST IF RE INFECTED. The patient does meet diagnostic criteria for opioid use disorder. MAT Medication Rx :Suboxone 8MG/2mg 2 films daily Add'l Meds Prescribed : NONE MAT Rx Quantity : 7d Rx provided today. Visit Frequency :weekly visits and UDS. Initial lab studies ordered today include urine drug screen with confirmation (if requested/require d), HCG (female), CBC with differential, comprehensive metabolic panel, HAV, HBV, HCV, and HIV. Discussed ordered labs and rationale behind required labwork Education and counseling provided at today's Comprehensive Addiction Initial Assessment included (as appropriate for this patient): -- Education re: risks and benefits of MAT options (buprenorphine and naltrexone) as appropriate for this patient. -- If treating with buprenorphine, proper sublingual dosing technique reviewed: No smoking for 20 - 30 min before dose. Sip water prior to dosing. During buprenorphine dissolve, hold all saliva in mouth only until medication is fully dissolved. Patient may then swallow saliva or spit it out. Rinse mouth with water afterwards. Do not brush teeth for a full hour after dosing. --If treating with buprenorphine, discussed in-office induction vs home induction, depending on current drug of choice and quantity of use. --If treating with naltrexone, discussed length of abstinence before taking first dose. -- Reviewed program policies, visit frequency, and expectations regarding behavior. -- Reviewed and defined medication misuse and diversion, discussed that this behavior is against [facility] policy, and can result in discharge from the program. -- Discussed rationale and recommendation of psychotherapy to support recovery. Prescription monitoring program is reviewed . If applicable, this provider has identified agents prescribed to the patient in addition to any issued by our program. The patient has been counseled regarding any risk of combining sedating agents. Not available 08/26/2023 12:10:51 09/03/2023 09/03/2023 Telemedicine Information: This telmed (audio + visual) appointment provided a MAT prescription. Time Start: 1300; Time End:1320 Provider Location: home; Patient Location: office Telemedicine Consent Given (verbal): Y This patient with a history of OUD presents today for their weekly MAT visit Current prescription is: Suboxone 16mg films Patient reports cravings at current dose Update Since Last Visit : (narrative note) Patient Denies all illicit drug use since last visit OUD weekly SBX 16mg daily Initial: 08/26/23 Opioids Hx:first age of percocet at age 36 y/o, had been prescribed percocet, but when no longer available bought on street. Then transition to sniffing heroin 2 bundles daily, fentanyl cross contaminated with it.. Last time used 2 months ago. Plans to visit daughter he hasn't seen in 14yrs in [place] in coming weeks OUD: currently on SBX 16mg daily. Sober x 2 months. Endorses continued w/d sxs, acknowledges that he is going through an adjustment period. Would like to engage with therapist at . Will cont current dose and increase if cravings persist. Denies IVDU Has narcan, knows how to use OD Hx: 2x last year Etoh: last time drank alcohol 3 to 4 years ago. Denies abuse or issues with alcohol Cocaine: first age of cocaine use at 29, sniffing. Would not use a lot. Last time used: 2 months ago. Benzodiazepines: did admits to being prescribed clonazepam for sleep, had taken as directed, but then started buying on street. Last time: a while ago. Marijuana: admitted to marijuana use in past. Last time: 10 years. Nicotine: quit smoking 2 months. Has NRT patches available Medical: -- current medical concerns: insomnia, oud, hx of hep c, reflux, insomnia-- on omeprazole and trazodone. Anemia: reviewed labs, pt chronically anemic, was on furosemide temporarily but stopped taking. Endorses dizziness occasionally. Denies LOC. Insomnia: states that he has not been sleeping well lately. Advised pt to schedule visit w PCP to manage these issues -- pcp name: noreen Espino social: -- housing stability/safety: lives with mother or his girlfriend of 7 years, calls her his . -- family: supportive family and girlfriend -- employment: unemployed -- legal: denies --transportation: [facility] transportation set up for pt. --counseling: will refer to [facility] counseling Plan: cont weekly MAT visits and UDS cont SBX 16mg daily check bup/norbup levels q4w sign up for counseling at LAB RESULTS Last UDS result (qualitative screen): POS buprenorphine and NO illicit drugs Last confirmatory test result (LCMS/quantitativ e): N/A due to negative UDS Last Bup confirmation was performed on TODAY, NEW PT Last LFT result: WNL ASSESSMENT The patient's current phase of OUD treatment is: Stabilization phase. Interpretation of last buprenorphine confirmation test result: N/A (new to care) Medication dose: Considering future dose adjustment, but Pt will remain at current dose at this time PLAN (narrative, if applicable) Rx : Continue Suboxone 16mg films daily Rx Quantity 7d Rx provided today. VISIT FREQUENCY Continue weekly visits and UDS. Treatment plan review or change includes continue current level of care LFTS will be repeated per our clinical protocol. Prescription monitoring program is reviewed. If applicable, I have identified agents prescribed to the patient in addition to any issued by our program. The patient has been counseled regarding any risk of combining sedating agents. [email or web address] Not available 09/03/2023 13:23:38 Plan of Treatment Reminders Order Date Submit Date Provider Last Modified By Organization Details Last Modified Time Details Appointments None recorded. Lab drug screen, urine 2022 023 JANNETTE [facility], [address] [place], [address], 3 15:12:10 cannabinoid s, QL, screen, urine 2022 023 JANNETTE [facility], [address] [place], [address], 3 15:13:57 ethanol, QL, screen, urine 2022 023 JANNETTE [facility], [address] [place], [address], 3 15:12:21 additional order codes 2022 023 JANNETTE [facility], [address] [place], [address], 3 13:24:21 additional order codes 2022 023 JANNETTE [facility], [address] [place], [address], 3 13:24:33 additional order codes 2022 023 JANNETTE [facility], [address] [place], [address], 3 13:24:27 additional order codes 2022 023 JANNETTE [facility], [address] [place], [address], 3 13:24:23 additional order codes 2022 023 JANNETTE [facility], [address] [place], [address], 3 13:24:31 additional order codes 2022 023 JANNETTE [facility], [address] [place], [address], 3 13:24:24 additional order codes 2022 023 JAN[facility]TE [facility], [address] [place], [address], 3 13:24:19 buprenorphi ne, quantitativ e, [facility] [address] [place], [address], 3 07:16:47 drug screen, urine 2022 023 JANNETTE [facility], [address] [place], [address], 3 10:00:59 cannabinoid s, QL, screen, urine 2022 023 JANNETTE [facility], [address] [place], [address], 3 10:00:57 ethanol, QL, screen, urine 2022 023 JANNETTE [facility], [address] [place], [address], 3 10:00:55 additional order codes 2022 023 JANNETTE [facility], [address] [place], [address], 3 11:26:24 additional order codes 2022 023 JANNETTE [facility], [address] [place], [address], 3 11:26:27 additional order codes 2022 023 JANNETTE [facility], [address] [place], [address], 3 11:26:20 additional order codes 2022 023 [facility], [address] [place], [address], 3 11:26:18 additional order codes 2022 023 [facility], [address] [place], [address], 3 11:26:21 additional order codes 2022 023 [facility], [address] [place], [address], 3 11:26:22 buprenorphi ne, QL, screen, urine [address], [address], 3 11:26:18 methadone, QL, screen, urine [address], [address], 3 11:26:19 Referral None recorded. Procedures None recorded. Surgeries None recorded. Imaging None recorded. Medication Orders Suboxone 8 mg-2 mg sublingual film 2022 023 [facility] #[id number], [address] [place], [address], 3 13:24:16 Suboxone 8 mg-2 mg sublingual film 2022 023 [facility]/Pharmacy #[id number], [phone] [place], [address], 3 11:26:29 Patient TargetsNo targets recorded. Patient InstructionsNo instructions recorded. Reason for Referral None Reported. Results Created Date Observation Date Name Description Value Unit Range Abnormal Flag Note LastModifiedBy Organization Detail LastModifiedTime 08/26/20 23 08/27/2023 ADRIANNE OL, QL, U ethanol NEG mg/dL <10 normal Not Available [facility] [address] [place], [address], 08/27/2023 10:00:55 08/26/20 23 08/27/2023 CANNA BINOI DS, QL, U cannabinoids NEG NG/mL <50 normal Not Available [facility] [address] [place], [address], 08/27/2023 10:00:57 08/26/20 23 08/27/2023 INITI AL PT UDS, QL, U cocaine metabolite NEG NG/mL <150 normal Not Available [facility] [address] [place], [address], 08/27/2023 10:00:59 08/26/20 23 08/27/2023 INITI AL PT UDS, QL, U amphetamines NEG NG/mL <500 normal Not Available [facility] [address] [place], [address], 08/27/2023 10:00:59 08/26/20 23 08/27/2023 INITI AL PT UDS, QL, U benzodiazepi heather NEG NG/mL <200 normal Not Available [facility] [address] [place], [address], 08/27/2023 10:00:59 08/26/20 23 08/27/2023 INITI AL PT UDS, QL, U buprenorphin e POS NG/mL <5 normal Not Available [facility] [address] [place], [address], 08/27/2023 10:00:59 08/26/20 23 08/27/2023 INITI AL PT UDS, QL, U fentanyl NEG NG/mL <2 normal Not Available [facility] [address] [place], [address], 08/27/2023 10:00:59 08/26/20 23 08/27/2023 INITI AL PT UDS, QL, U methadone NEG NG/mL <300 normal Not Available [facility] [address] [place], [address], 08/27/2023 10:00:59 08/26/20 23 08/27/2023 INITI AL PT UDS, QL, U opiates NEG NG/mL <300 normal Not Available [facility] [address] [place], [address], 08/27/2023 10:00:59 08/26/20 23 08/27/2023 INITI AL PT UDS, QL, U oxycodone NEG NG/mL <300 normal Not Available [facility] [address] [place], [address], 08/27/2023 10:00:59 08/26/20 23 08/27/2023 INITI AL PT UDS, QL, U urine pH 8.1 4.5 - 9.0 Not Available [facility] [address] [place], [address], 08/27/2023 10:00:59 08/26/20 23 08/27/2023 INITI AL PT UDS, QL, U urine specific gravity 1.008 1.003 - 1.035 Not Available [facility] [address] [facility] [place], [address], 08/27/2023 10:00:59 08/26/20 23 08/27/2023 INITI AL PT UDS, QL, U urine creatinine 70 mg/dL 20 - 320 Not Available [facility] [address] [place], [address], 08/27/2023 10:00:59 08/26/20 23 08/27/2023 HIV 1/2 ANTIG EN/AN TIBOD Y,FOU RTH GENER ATION W/RFL HIV Ag/Ab, 4TH gen NON-RE ACTIVE non-re active normal HIV-1 antig en and HIV-1 /HIV- 2 antib odies were not detec betsy. There is no labor atory evide nce of HIV infec tion. PLEAS E NOTE: This infor matio n has been discl osed to you from recor ds whose confi denti ality may be prote cted by state law. If your state requi res such prote ction , then the state law prohi bits you from erondaniela mariano furth er discl osure of the infor matio n witho ut the speci fic writt en conse nt of the perso n to whom it perta ins, or as other estrada permi tted by law. A gener al autho rizat ion for the relea se of medic al or other infor matio n is NOT suffi cient for this purpo se. For addit ional infor matio n pleas e refer to http: //[facility] stdia gnost ics.c om/fa q/FAQ 106 (This link is being provi ded for infor matio nal/ educa nadeen l purpo ses only. ) The perfo rmanc e of this assay has not been clini ailyn valid ated in patie nts less than 2 years old. Not Available [facility] [address], [address], 08/27/2023 15:11:30 08/26/20 23 08/27/2023 GGT GGT 10 U/L 3-95 normal Not Available [facility] [address], [address], 08/27/2023 15:11:31 08/26/20 23 08/27/2023 COMPR EHENS VIKASH METAB OLIC PANEL glucose 92 mg/dL 65-99 normal Fasti ng refer ence inter chetan Not Available [facility] [address], [address], 08/27/2023 15:11:32 08/26/20 23 08/27/2023 COMPR EHENS VIKASH METAB OLIC PANEL urea nitrogen (BUN) 10 mg/dL 7-[address] [facility] [address], [place], [address], 08/27/2023 15:11:32 08/26/20 23 08/27/2023 COMPR EHENS VIKASH METAB OLIC PANEL creatinine 1.01 mg/dL 0.60-1 .29 normal Not Available [facility] [address], [place], [address], 08/27/2023 15:11:32 08/26/20 23 08/27/2023 COMPR EHENS VIKASH METAB OLIC PANEL eGFR 95 mL/mi n/1.7 3m2 > or = 60 normal Not Available [facility] [address], [place], [address], 08/27/2023 15:11:32 08/26/20 23 08/27/2023 COMPR EHENS VIKASH METAB OLIC PANEL BUN/creatini ne ratio SEE NOTE: (calc ) 6-22 Not Repor betsy: BUN and Creat inine are withi n refer ence range . Not Available [facility] [address], [place], [address], 08/27/2023 15:11:32 08/26/20 23 08/27/2023 COMPR EHENS VIKASH METAB OLIC PANEL sodium 138 mmol/ L 135-14 6 normal Not Available [facility] [address], [place], [address], 08/27/2023 15:11:32 08/26/20 23 08/27/2023 COMPR EHENS VIKASH METAB OLIC PANEL potassium 4.2 mmol/ L 3.5-5. 3 normal Not Available [facility] [address], [place], [address], 08/27/2023 15:11:32 08/26/20 23 08/27/2023 COMPR EHENS VIKASH METAB OLIC PANEL chloride 101 mmol/ L 98-110 normal Not Available [facility] [address], [place], [address], 08/27/2023 15:11:32 08/26/20 23 08/27/2023 COMPR EHENS VIKASH METAB OLIC PANEL carbon dioxide 27 mmol/ L 20-32 normal Not Available [facility] [address], [place], [address], 08/27/2023 15:11:32 08/26/20 23 08/27/2023 COMPR EHENS VIKASH METAB OLIC PANEL calcium 9.5 mg/dL 8.6-10 .3 normal Not Available [facility] [address], [place], [address], 08/27/2023 15:11:32 08/26/20 23 08/27/2023 COMPR EHENS VIKASH METAB OLIC PANEL protein, total 8.1 g/dL 6.1-8. 1 normal Not Available [facility] [address], [place], [address], 08/27/2023 15:11:32 08/26/20 23 08/27/2023 COMPR EHENS VIKASH METAB OLIC PANEL albumin 4.5 g/dL 3.6-5. 1 normal Not Available [facility] [address], [place], [address], 08/27/2023 15:11:32 08/26/20 23 08/27/2023 COMPR EHENS VIKASH METAB OLIC PANEL globulin 3.6 g/dL_ (calc ) 1.9-3. 7 normal Not Available [facility] [address], [place], [address], 08/27/2023 15:11:32 08/26/20 23 08/27/2023 COMPR EHENS VIKASH METAB OLIC PANEL albumin/glob ulin ratio 1.3 (calc ) 1.0-2. 5 normal Not Available [facility] [address], [place], [address], 08/27/2023 15:11:32 08/26/20 23 08/27/2023 COMPR EHENS VIKASH METAB OLIC PANEL bilirubin, total 0.3 mg/dL 0.2-1. 2 normal Not Available [facility] [address], [place], [address], 08/27/2023 15:11:32 08/26/20 23 08/27/2023 COMPR EHENS VIKASH METAB OLIC PANEL alkaline phosphatase 72 U/L 36-130 normal Not Available [facility] [address], [place], [address], 08/27/2023 15:11:32 08/26/20 23 08/27/2023 COMPR EHENS VIKASH METAB OLIC PANEL AST 16 U/L 10-40 normal Not Available [facility] [address], [place], [address], 08/27/2023 15:11:32 08/26/20 23 08/27/2023 COMPR EHENS VIKASH METAB OLIC PANEL ALT 14 U/L 9-46 normal Not Available [facility] [address], [place], [address], 08/27/2023 15:11:32 08/26/20 23 08/27/2023 CBC (INCL UDES DIFF/ PLT) white blood cell count 4.8 thous and/u L 3.8-10 .8 normal Not Available [facility] [address], [place], [address], 08/27/2023 15:11:32 08/26/20 23 08/27/2023 CBC (INCL UDES DIFF/ PLT) red blood cell count 5.39 marcello on/uL 4.20-5 .80 normal Not Available [facility] [address], [place], [address], 08/27/2023 15:11:32 08/26/20 23 08/27/2023 CBC (INCL UDES DIFF/ PLT) hemoglobin 11.1 g/dL 13.2-1 7.1 low Not Available [facility] [address], [place], [address], 08/27/2023 15:11:32 08/26/20 23 08/27/2023 CBC (INCL UDES DIFF/ PLT) hematocrit 39.4 % 38.5-5 0.0 normal Not Available [facility] [address], [place], [address], 08/27/2023 15:11:32 08/26/20 23 08/27/2023 CBC (INCL UDES DIFF/ PLT) MCV 73.1 fL 80.0-1 00.0 low Not Available [facility] [address], [place], [address], 08/27/2023 15:11:32 08/26/20 23 08/27/2023 CBC (INCL UDES DIFF/ PLT) MCH 20.6 pg 27.0-3 3.0 low Not Available [facility] [address], [place], [address], 08/27/2023 15:11:32 08/26/20 23 08/27/2023 CBC (INCL UDES DIFF/ PLT) MCHC 28.2 g/dL 32.0-3 6.0 low Not Available [facility] [address], [place], [address], 08/27/2023 15:11:32 08/26/20 23 08/27/2023 CBC (INCL UDES DIFF/ PLT) RDW 20.9 % 11.0-1 5.0 high Not Available [facility] [address], [place], [address], 08/27/2023 15:11:32 08/26/20 23 08/27/2023 CBC (INCL UDES DIFF/ PLT) platelet count 219 thous and/u L 140-40 0 normal Not Available [facility] [address], [place], [address], 08/27/2023 15:11:32 08/26/20 23 08/27/2023 CBC (INCL UDES DIFF/ PLT) MPV fL 7.5-12 .5 Due to plate let or RBC varia bilit y in size or shape the resul t canno t be repor betsy accur ately . Not Available [facility] [address], [place], [address], 08/27/2023 15:11:32 08/26/20 23 08/27/2023 CBC (INCL UDES DIFF/ PLT) absolute neutrophils 3134 cells /uL 1500-7 800 normal Not Available [facility] [address], [place], [address], 08/27/2023 15:11:32 08/26/20 23 08/27/2023 CBC (INCL UDES DIFF/ PLT) absolute lymphocytes 1152 cells /uL 850-39 00 normal Not Available [facility] [address], [place], [address], 08/27/2023 15:11:32 08/26/20 23 08/27/2023 CBC (INCL UDES DIFF/ PLT) absolute monocytes 370 cells /uL 200-95 0 normal Not Available [facility] [address], [place], [address], 08/27/2023 15:11:32 08/26/20 23 08/27/2023 CBC (INCL UDES DIFF/ PLT) absolute eosinophils 62 cells /uL 15-500 normal Not Available [facility] [address], [place], [address], 08/27/2023 15:11:32 08/26/20 23 08/27/2023 CBC (INCL UDES DIFF/ PLT) absolute basophils 82 cells /uL 0-200 normal Not Available [facility] [address], [place], [address], 08/27/2023 15:11:32 08/26/20 23 08/27/2023 CBC (INCL UDES DIFF/ PLT) neutrophils 65.3 % normal Not Available [facility] [address], [place], [address], 08/27/2023 15:11:32 08/26/20 23 08/27/2023 CBC (INCL UDES DIFF/ PLT) lymphocytes 24.0 % normal Not Available [facility] [address], [place], [address], 08/27/2023 15:11:32 08/26/20 23 08/27/2023 CBC (INCL UDES DIFF/ PLT) monocytes 7.7 % normal Not Available [facility] [address], [place], [address], 08/27/2023 15:11:32 08/26/20 23 08/27/2023 CBC (INCL UDES DIFF/ PLT) eosinophils 1.3 % normal Not Available [facility] [address], [place], [address], 08/27/2023 15:11:32 08/26/20 23 08/27/2023 CBC (INCL UDES DIFF/ PLT) basophils 1.7 % normal Not Available [facility] [address], [place], [address], 08/27/2023 15:11:32 08/26/20 23 08/28/2023 HEPAT ITIS B SURFA CE ANTIG EN W/REF L CONFI RM hepatitis B surface antigen NON-RE ACTIVE non-re active normal For addit ional infor vicente hooks e refer to http: //[facility] catio n.[place] stdia gnost ics.c om/fa q/FAQ 202 (This link is being provi ded for infor matio nal/ educa nadeen l purpo ses only. ) Not Available [facility] [address], [place], [address], 08/28/2023 19:18:39 08/26/20 23 08/28/2023 HEPAT ITIS B SURFA CE ANTIB JOHNSON QL hepatitis B surface antibody ql REACTI VE non-re active abnormal Not Available [facility] [address], [place], [address], 08/28/2023 19:18:40 08/26/20 23 08/28/2023 HEPAT ITIS B CORE AB TOTAL hepatitis B core Ab total NON-RE ACTIVE non-re active normal For addit ional infor vicente hooks e refer to http: //edu catio n.que stdia gnost ics.c om/fa q/FAQ (This link is being provi ded for infor matio nal/ educa nadeen l purpo ses only. ) Not Available [facility] [address], [place], [address], 08/28/2023 19:18:41 08/26/20 23 08/28/2023 HEPAT ITIS A AB, TOTAL hepatitis A Ab, total REACTI VE non-re active abnormal For addit ional vicente fernandez refer to http: //[facility] jose ramon odomque stdia gnost ics.c om/fa q/FAQ 202 (This link is being provi ded for infor ray nal/ educa nadeen l purpo ses only. ) Not Available [facility] [address], [address], 08/28/2023 19:18:41 08/26/20 23 08/28/2023 HEPAT ITIS C AB W/RFL RNA, PCR W/RFL GENOT YPE,L IPA hepatitis C antibody REACTI VE non-re active abnormal Based on this resul t, the sampl e will be teste d for HCV RNA by a Nucle ic Acid Ampli ficat ion Test (NAAT ) to deter mine if the patie nt has a curre nt activ e infec tion. For addit ional vicente fernandez refer to http: //[facility] jose ramon Graves stDia gnost ics.c om/fa q/FAQ 194 (This link is being provi ded for rigoberto bell nal/ educa nadeen l purpo ses only. ) Not Available [facility] [address], [address], 08/28/2023 19:18:42 08/26/20 23 08/31/2023 HCV RNA, QN,RE AL TIME PCR W/REF L GENOT YPE, LIPA HCV RNA, quantitative real time PCR <15 NOT DETECT ED IU/mL not detect ed normal Not Available [facility] [address], [address], 08/31/2023 15:55:03 08/26/20 23 08/31/2023 HCV RNA, QN,RE AL TIME PCR W/REF L GENOT YPE, LIPA HCV RNA, quantitative real time PCR <1.18 NOT DETECT ED log_I U/mL not detect ed normal HCV RNA is not detec betsy. There is no labor atory evide nce of a curre nt activ e HCV infec tion. This patte rn of resul ts (unde tecta ble HCV RNA combi amna with react vikash HCV antib johnson) could be consi stent with a resol stephen past infec tion if the clini nikole histo ry is evie tible with previ ous HCV expos ure. Howev er, if no previ ous expos ure is suspe cted, the react vikash HCV antib johnson could be a biolo gical false posit vikash resul t. Not Available [facility] [address], [address], 08/31/2023 15:55:03 08/26/20 23 08/31/2023 HCV RNA, QN,RE AL TIME PCR W/REF L GENOT YPE, LIPA comment This test was perfo rmed using Real- Time Polym erase Chain React ion. Repor table Range : 15 IU/mL to 100,0 00,00 0 IU/mL (1.18 Log IU/mL to 8.00 Log IU/mL ). The darian tical perfo rmanc e osman cteri stics of this assay have been deter mined by [facility]. The modif icati ons have not been clear ed or appro stephen by the FDA. This assay has been valid ated pursu ant to the CLIA regul ation s and is used for clini nikole purpo ses. For more infor ray dumont on this test, go to: http: //dipak dumont.que stdia gnost ics.c om/fa q/FAQ 22v1 (This link is being provi ded for infor ray wade/ educa nadeen l purpo ses only. ) This assay is inten ded for use as an aid in the diagn osis of HCV infec tion and the manag ement of HCV infec betsy patie nts under going anti- viral thera py. Not Available [facility] [address], [place], [address], 08/31/2023 15:55:03 08/26/20 23 08/26/2023 metha done, QL, scree n, urine Methadone negati ve Not Available [address], [address], 08/26/2023 10:51:50 08/26/20 23 08/26/2023 bupre norph ine, QL, scree n, urine Buprenorphin e positi ve Not Available [address], [address], 08/26/2023 10:51:49 09/03/20 23 09/04/2023 BUPRE NORPH INE PT UDS, QL, U cocaine metabolite NEG NG/mL <[address] [facility] [address] [place], [address], 09/04/2023 15:12:10 09/03/20 23 09/04/2023 BUPRE NORPH INE PT UDS, QL, U amphetamines NEG NG/mL <[address] [facility] [address] [place], [address], 09/04/2023 15:12:10 09/03/20 23 09/04/2023 BUPRE NORPH INE PT UDS, QL, U benzodiazepi heather NEG NG/mL <200 normal Not Available [facility] [address] [place], [address], 09/04/2023 15:12:10 09/03/20 23 09/04/2023 BUPRE NORPH INE PT UDS, QL, U buprenorphin e POS NG/mL <5 normal Not Available [facility] [address] [place], [address], 09/04/2023 15:12:10 09/03/20 23 09/04/2023 BUPRE NORPH INE PT UDS, QL, U fentanyl POS NG/mL <2 abnormal Not Available [facility] [address] [place], [address], 09/04/2023 15:12:10 09/03/20 23 09/04/2023 BUPRE NORPH INE PT UDS, QL, U methadone NEG NG/mL <300 normal Not Available [facility] [address] [place], [address], 09/04/2023 15:12:10 09/03/20 23 09/04/2023 BUPRE NORPH INE PT UDS, QL, U opiates NEG NG/mL <300 normal Not Available [facility] [address] [place], [address], 09/04/2023 15:12:10 09/03/20 23 09/04/2023 BUPRE NORPH INE PT UDS, QL, U oxycodone NEG NG/mL <300 normal Not Available [facility] [address] [place], [address], 09/04/2023 15:12:10 09/03/20 23 09/04/2023 BUPRE NORPH INE PT UDS, QL, U urine pH 5.3 4.5 - 9.0 Not Available [facility] [address] [place], [address], 09/04/2023 15:12:10 09/03/20 23 09/04/2023 BUPRE NORPH INE PT UDS, QL, U urine specific gravity 1.013 1.003 - 1.035 Not Available [facility] [address] [place], [address], 09/04/2023 15:12:10 09/03/20 23 09/04/2023 BUPRE NORPH INE PT UDS, QL, U urine creatinine 135 mg/dL 20 - 320 Not Available [facility] [address] [place], [address], 09/04/2023 15:12:10 09/03/20 23 09/04/2023 ADRIANNE OL, QL, U ethanol NEG mg/dL <10 normal Not Available [facility] [address] [place], [address], 09/04/2023 15:12:20 09/03/20 23 09/04/2023 CANNA BINOI DS, QL, U cannabinoids POS NG/mL <50 abnormal Not Available [facility] [address] [place], [address], 09/04/2023 15:13:57 09/03/20 23 09/09/2023 BUPRE NORPH INE, QN, U normalized buprenorphin e 57.0 NG/mL Not Available [facility] [address] [place], [address], 09/09/2023 07:16:47 09/03/20 23 09/09/2023 BUPRE NORPH INE, QN, U normalized norbuprenorp scar 152.5 NG/mL Not Available [facility] [address] [place], [address], 09/09/2023 07:16:47 09/03/20 23 09/09/2023 BUPRE NORPH INE, QN, U buprenorphin e 76.9 NG/mL <10.0 normal Not Available [facility] [address] [place], [address], 09/09/2023 07:16:47 09/03/20 23 09/09/2023 BUPRE NORPH INE, QN, U norbuprenorp scar 205.6 NG/mL <10.0 normal Not Available [facility] [address] [place], [address], 09/09/2023 07:16:47 09/03/20 23 09/09/2023 OPIAT ES EXPAN DED PANEL , QN, U xylazine Negati ve NG/mL <10.0 Not Available [facility] [address] [place], [address], 09/09/2023 07:16:56 09/03/20 23 09/09/2023 OPIAT ES EXPAN DED PANEL , QN, U 6-acetylmorp scar Negati ve NG/mL <10.0 Not Available [facility] [address] [place], [address], 09/09/2023 07:16:56 09/03/20 23 09/09/2023 OPIAT ES EXPAN DED PANEL , QN, U cis-tramadol Negati ve NG/mL <100.0 Not Available [facility] [address] [place], [address], 09/09/2023 07:16:56 09/03/20 23 09/09/2023 OPIAT ES EXPAN DED PANEL , QN, U codeine Negati ve NG/mL <50.0 Not Available [facility] [address] [place], [address], 09/09/2023 07:16:56 09/03/20 23 09/09/2023 OPIAT ES EXPAN DED PANEL , QN, U fentanyl 677.9 NG/mL <10.0 high Not Available [facility] [address] [place], [address], 09/09/2023 07:16:56 09/03/20 23 09/09/2023 OPIAT ES EXPAN DED PANEL , QN, U hydrocodone Negati ve NG/mL <50.0 Not Available [facility] [address] [place], [address], 09/09/2023 07:16:56 09/03/20 23 09/09/2023 OPIAT ES EXPAN DED PANEL , QN, U hydromorphon e Negati ve NG/mL <50.0 Not Available [facility] [address] [place], [address], 09/09/2023 07:16:56 09/03/20 23 09/09/2023 OPIAT ES EXPAN DED PANEL , QN, U morphine Negati ve NG/mL <50.0 Not Available [facility] [address] [place], [address], 09/09/2023 07:16:56 09/03/20 23 09/09/2023 OPIAT ES EXPAN DED PANEL , QN, U norfentanyl 327.2 NG/mL <10.0 high Not Available [facility] [address] [place], [address], 09/09/2023 07:16:56 09/03/20 23 09/09/2023 OPIAT ES EXPAN DED PANEL , QN, U norhydrocodo ne Negati ve NG/mL <100.0 Not Available [facility] [address] [place], [address], 09/09/2023 07:16:56 Result Notes None recorded. Problems Name Problem SNOMED Code Status Onset Date Resolution Date Notes Provider Name and Address Organization Details Recorded Time Opioid dependenc e 97152515 Active 2022 HX OF OD X 2, GIVEN NARCAN. LAST TIME 1 YEAR AGO. Iris Miller NP [address] [place], [address], [facility] [employer] 3 11:26:22 Chronic hepatitis C 006355694 Active 2022 TX'D 2 YEARS AGO W/ VAVYRET, CURED. N 08/26/23 UNDETECTA BLE QUANTS. Iris Miller NP [address] [place], [address], [facility] [employer] 3 05:52:15 Gastroeso phageal reflux disease 326536566 Active 2022 Iris Miller NP [address] [place], [address], [facility] [employer] 3 11:03:09 Anxiety 57044741 Active 2022 Iris Miller NP [address] [place], [address], [facility] [employer] 11:03:33 Insomnia 537929022 Active 2022 Iris Miller NP [address] [place], [address], [facility] [employer] [facility] 3 11:05:01 Former light tobacco smoker [id number] 102 Active 2022 QUIT SMOKING Iris Miller NP [address] [place], [address], [facility] [employer] [facility] 3 11:37:04 Problem Notes None recorded. Procedures Surgical History Date Name Laterality Status Provider Name and Address Organization Details Recorded Time 09/09/2023 [address], G0480, G0481 cancelled Iris Miller NP [address] [place], [address], [facility] [employer] 09/09/2023 05:39:21 09/03/2023 [address], G0480, G0481 completed Triny Kovacs [place] [employer] 09/03/2023 12:21:31 08/26/2023 135[address], G0480, G0481 completed [facility] [employer] 08/26/2023 10:47:08 Imaging Results None recorded. Procedure Notes None recorded. Medical Equipment None Reported. Allergies No known drug allergies Medications Name Sig Start Date Stop Date Status Note LastModified by Organization Details LastModified Time nicotine 14 mg/24 hr daily transdermal patch Apply 1 patch every day by transderm al route. active Not Available Not Available No t Available omeprazole 40 mg capsule,del ayed release Take 1 capsule every day by oral route in the morning. active Not Available Not Available No t Available trazodone 100 mg tablet Take 1 tablet every day by oral route at bedtime. active Not Available Not Available No t Available Suboxone 8 mg-2 mg sublingual film DISSOLVE 2 FILMS UNDER TONGUE EVERY MORNING FOR 7 DAYS active Not Available Not Available No t Available Suboxone 2 mg-0.[address] 1 film every day by sublingua l route in the morning. 09/02 completed Not Available Not Available Not Available Narcan 4 mg/actuatio n nasal spray Take 1 spray as needed by nasal route as directed. active Not Available Not Available No t Available Vitals Date Recorded Heart rate Oxygen saturation Oxygen saturation in Arterial blood by Pulse oximetry Body temperature Provider Name and Address Organization Details Last Updated DateTime 08/26/2023 64 /min 98 % 98 % 98.4 [degF] Triny Kovacs [place] [employer] 10:51:09 Date Recorded Heart rate Oxygen saturation Oxygen saturation in Arterial blood by Pulse oximetry Body temperature Provider Name and Address Organization Details Last Updated DateTime 09/03/2023 85 /min 96 % 96 % 97.9 [degF] [facility] [employer] [facility] 12:23:06 Social History Question Answer Notes LastModified by Organizat ion Details LastModified Time Tobacco Smoking Status Former Smoker Iris Miller NP [address] [place] [address], [address], [facility] [employer] 08/26/2023 11:07:54 What Is The Highest Grade Or Level Of School You Have Completed Or The Highest Degree You Have Received? [id number] Information not available 08/26/2023 *Housing Stable - Safe LIVES W/ GF IN APARTMENT . HAS BEEN WITH HER X 7 YEARS. C [email or web address] Information not available 08/26/2023 *Employment Underemployed Informatio n not available 08/26/2023 *Food Adequate Information no t available 08/26/2023 * Not A [place] [email or web address] Information not available 08/26/2023 *Job Training/Educat ion/Literacy Not Needed [email or web address] Information not available 08/26/2023 *Legal Status No Legal Issues [email or web address] Inform ation not available 08/26/2023 *Legal Assistance Not Required Information not available 08/26/2023 *Custody Of Dependent Children No Custody [email or web address] Information not available 08/26/2023 *Social Service's Involvement With Dependent Children No University Administrative Assistant Involvement [email or web address] Information not available 08/26/2023 *Childcare Needed No [email or web address] Information not available 08/26/2023 *Concern For Domestic Violence No [email or web address] Information not available 08/26/2023 *Primary Care Provider Yes Noreen Guillen [email or web address] Information not available 08/26/2023 *Other Medical Issues None [email or web address] Information not available 08/26/2023 *Social Support Network Has Stable Support System [email or web address] Information not available 08/26/2023 *Transportation Issues Yes - Kept Me From Medical And Non-medical Appts NEEDS PT1 WILL SET UP Information not available 08/26/2023 What Is Your Relationship Status? Single Information not available 08/26/2023 Sex: Unknown Functional Status None recorded. Mental Status None recorded. Family History Relationship Description Onset Age of this Age Resolved Age Notes LastModified by Organization Details LastModified Time Father No current problems or disability Not available 08/26 11:05:11 Mother No current problems or disability [email or web address] Not available 08/26 11:05:11 Notes:MOTHER LIVING: NO AUD/ OUD. FATHER LIVING: SOBER FROM OUD/AUD HAS 3 SISTER 2 BROTHER. 3 WITH OUD--ON MTD. 2 DAUGHTERS AND 4 SON'S (24, 20, 15, 14 AND 12). HEALTHY. Medical History No medical history recorded. Past Encounters Encounter ID Performer Location Encounter Start Date Encounter Closed Date Diagnosis/Indication Diagnosis SNOMED-CT Code Diagnosis ICD10 Code Diagnosis Note [id number] Iris Miller NP [facility] [address] [place] [address] 08/26/2023 10:40:39 08/26/2023 13:15:53 Opioid dependence 27209446 F11.20 UNSTABLE [id number] AURELIO Palomino [facility] [address] [place] [address] 09/03/2023 12:20:13 09/03/2023 13:41:23 Opioid dependence 60350173 F11.20 unstable Health Concerns Section Related Observation LastModified by Organization Detai ls LastModified Time None Recorded Concern Status LastModified by Organization Details LastModified Time None Recorded Advance Directives Directive None Recorded Payers Encounter Date Sequence Insurance Name Policy Number Policy Chavarria Covered Member ID Chavarria Member ID Guarantor Name 08/26/2023 1 [place]ICAID[place] Zi Montaño [id number] Zi Montaño 09/03/2023 1 [place] Zi Montaño [id number] Zi Montaño Notes Date Note Type Note Provider Name and Address Organization Details Recorded Time 08/26/2023 text/html Initial MAT HPI This patient with {{OUD* OUD and AUD}} presents today seeking MAT treatment with {{Suboxone/buprenor phine* Sublocade Or al naltrexone Vivitrol Inj}}. Current readiness for treatment/stage of change is described as {{pre-contemplation contemplation prep aration action* maribell ntenance}}. Motivation for presenting for treatment today: {{transition from prior treatment site due to discharge from inpatient rehab mandated/enco uraged by DCF mandated/encour aged by probation/parole de sire to discontinue illicit substance use financial reque sted/encouraged by family/friends TO NOT USE ANY DRUGS#}} The patient describes individual goals for substance dependence treatment as: {{ SOBRIETY#}} Substance use history: (including first use age, progression, last use, quantity, route) Opioids:FIRST AGE OF PERCOCET AT AGE 36 Y/O, HAD BEEN PRESCRIBED PERCOCET, BUT WHEN NO LONGER AVAILABLE BOUGHT ON STREET.LAST TIME USED PERCOCET: LONG TIME AGO.THEN TRANSITION TO SNIFFING HEROIN 2 BUNDLES DAILY, FENTANYL CROSS CONTAMIMATED WITH IT.. LAST TIME USED 2 MONTHS AGO.NEVER INJECTION HEROIN/FENTANYL HAS BEEN ON SBX 16 MG/4MG OFF AND ON FOR THE PAST 3 TO 4 YEARS. HE REPORTS 16 MG/4MG WORKS WELL FOR HIM. LAST RX FILLLED ON SBX 8MG/2MG #22 ON 07/20/23. PRESCRIBED BY [facility] SEEN IN [facility].LAST TIME TOOK SBX 16MG/4MG TODAY. TOLERATES THIS DOSE WELL W/O SE. EtOH: LAST TIME DRANK ALCOHOL 3 TO 4 YEARS AGO.DENIES ABUSE OR ISSUES WITH ALCOHOL Cocaine: FIRST AGE OF COCAINE USE AT 29, SNIFFING. WOULD NOT USE A LOT.LAST TIME USED: 2 MONTHS AGO. Stimulants: DENIES ANY USE Benzodiazepines: DID ADMITS TO BEING PRESCRIBED CLONAZEPAM FOR SLEEP, HAD TAKEN DIRECTED, BUT THEN STARTED BUYING ON STREET.LAST TIME: A WHILE AGO. Marijuana: ADMITTED TO MARIJUANA USE IN PAST.LAST TIME: 10 YEARS. Nicotine: QUIT SMOKING 2 MONTHS. Other substances: DENIES ANY OTHER DRUGS. The patient {{denies* reports}} a history of IV drug use. The patient {{denies reports*}} diagnosis of HCV. Diagnosis Date: {{N/A Year of Dx: Year of Dx: 2020#}} HCV Treatment: {{N/A Successful Tx* Incomplete Tx Never treated}}, BUT RE INFECTED The patient {{denies reports*}} a history of overdose X 2, LAST TIME 1 YEAR AGO. The patient {{denies reports*}} a history of witnessing an overdose. The patient {{accepts offer for* declines offer for reports already having}} Narcan today and {{reports* denies}} understanding of how to use Narcan properly. HAS IN HOME, GIVEN 2 WEEKS AGO AND KNOWS HOW TO USE. GF/ VERY SUPPORTIVE, HAS HELP HIM TO QUIT SMOKING AND USING ILLICIT SUBSTANCE. Past Treatment history: -- Office-based opioid treatment program(s): {{Yes* No}} If yes, last buprenorphine Rx was {{N/A on:*}}07/20/23 SBX 8MG/2MG 2 FILMS DAILY #22 -- Methadone maintenance treatment program(s): {{Yes* No}}. TRIED 1 X DID NOT LIKE IT. -- Illicit {{ street Suboxone * methadon e}}: {{Yes* No}}. If yes, last exposure to {{ street Suboxone * illicit methadone}} was {{NA/on: LONG TIME AGO#}} Most successful program to date has been {{ MAT PROGRAM#}}. Iris Miller NP [address] [place], [address], [facility] [employer] 08/26/2023 12:12:19 09/03/2023 text/html This patient is here today for their follow-up MAT visit. They are being treated for OUD with buprenorphine. PLEASE SEE A & P SECTION FOR FULL VISIT NOTE AURELIO Lawton [address] [place] [address], [address], [facility] 09/03/2023 13:24:18
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
--- OUTSIDE RECORDS SUMMARY | 2024-11-14 17:31 | XMS_ITS | Encounter Summary ---
Author Organization [employer] Address [address] [facility] [address] [place] [address] Care Team Providers Care Mines Safety Engineer Name Role Phone Buddy Thomas MD Primary Care Prov ider Reason for Visit * Reason Comments Med Refill Encounter Details Date Type Department Care Team ([facility] st Contact Info) Description 09/05/2024 Refill [facility] [address] [place], [place] [phone] Alfonzo Shah MD [address] [place] [address] Tobacco dependence Social History Tobacco Use Types Packs/Day Years [...] as of this encounter Visit Diagnoses Diagnosis Tobacco dependence Tobacco use disorder documented in this encounter Additional Health Concerns Assessment Noted Time PHQ-9 Depression Total Score: 13 024 2:54 PM EDT documented as of this encounter Care Teams Mines Safety Engineer Relationship Specialty Start Date End Date Buddy Thomas MD [address] [place] [phone] PCP - General Internal Medicine 07/21/24 documented as of this encounter
--- OUTSIDE RECORDS SUMMARY | 2024-11-14 17:31 | XMS_ITS | Encounter Summary ---
Author Organization [employer] Address [address] [facility] 7t [place] [address] Care Team Providers Care Merchandising Manager Name Role Phone Buddy Thomas MD Primary Care Prov ider Reason for Visit * Reason Onset Date Comments Medication Question 08/15/2024 Encounter Details Date Type Department Care Team (Late st Contact Info) Description 08/15/2024 Telephone [facility] MEDICINE [address] [place] [address] Buddy Thomas MD [address] [place], [place] [phone] Medication Question Social History Tobacco Use Types [...] encounter Miscellaneous Notes * Telephone Encounter - Jennie Griffiths RN - 08/22/2024 10:34 AM EST TC X1 to pt regarding message below. LVM to return call to office. * Telephone Encounter - Robert Venegas - 08/15/2024 4:13 PM EST Tc from pt requesting a callback as he will like a script for nicotine patches as pt informs he will like to stop smoking an he will like nicotine patches as a choice to help him stop. Callback number [phone] documented in this encounter Plan of Treatment Not on file documented as of this encounter Visit Diagnoses Not on filedocumented in this encounter Additional Health Concerns Assessment Noted Time PHQ-9 Depression Total Score: 13 024 2:54 PM EDT documented as of this encounter Care Teams Merchandising Manager Relationship Specialty Start Date End Date Buddy Thomas MD [address] [place] [phone] PCP - General Internal Medicine 07/21/24 documented as of this encounter
[2024-11-14 17:51] LABS: MANUAL DIFF FLAG NO
[2024-11-14 18:04] LABS: Basophils Absolute Auto 0.1 X10*3/uL (0.0-0.2); Basophils Percent Auto 0.9 % (0-2); Eosinophils Percent Auto 0.4 % (0-4); Hematocrit 43.4 % (42.0-52.0); Hemoglobin 14.6 g/dl (14.0-18.0); Imm Gran Abs Auto 0.01 X10*3/uL (0.00-0.03); Imm Gran Pct Auto 0.2 % (0.0-0.4); Lymphocytes Absolute Auto 1.2 X10*3/uL (1.2-4.9); Lymphocytes Percent Auto 20.5 % (20-40); Mean Corpuscular HGB Conc 33.6 g/dl (31.0-36.0); Mean Corpuscular Hemoglobin 28.9 pg (27.0-33.0); Mean Corpuscular Volume 85.9 fL (80.0-98.0); Mean Platelet Volume 12.2 fL (9.4-12.4); Monocytes Absolute Auto 0.3 X10*3/uL (0.1-1.2); Monocytes Percent Auto 6.1 % (2-11); Neutrophils Percent Auto 71.9 % (45-73); Platelet Count 210 X10*3/uL (160-400); Red Blood Count 5.05 X10*6/uL (4.60-5.80); Red Cell Distribution Width 13.5 % (11.0-16.0); White Blood Count 5.6 X10*3/uL (4.8-10.8)
[2024-11-14 18:23] LABS: Alanine Aminotransferase 20 U/L (0-40); Albumin Level 4.3 g/dL (3.5-5.0); Alkaline Phosphatase 75 U/L (39-117); Anion Gap 11 (12-20); Aspartate Amino Transferase 23 U/L (5-37); Bilirubin Total 0.3 mg/dL (0.0-1.0); Blood Urea Nitrogen 12 mg/dL (9-16); Calcium 9.1 mg/dL (8.4-10.2); Carbon Dioxide 27 mmol/L (22-29); Chloride 106 mmol/L (96-108); Cholesterol 144 mg/dL (<200); Estimated Glomerular Filt Rate > 60; Glucose Random 119 mg/dL (60-115); HDL Cholesterol 48 mg/dL (>40); LDL Cholesterol Calculated 76 mg/dL (<100); Sodium 140 mmol/L (135-145); Total Protein 7.8 g/dL (6.5-8.0); Triglycerides 102 mg/dL (<150)
[2024-11-14 18:31] LABS: TSH reflex Free T4 1.63 uIU/mL (0.32-4.0)
[2024-11-15 07:24] LABS: Estimated Average Glucose 111 mg/dL; Hemoglobin A1C 137.6989 umol/L; Hemoglobin A1c % 5.5 % (<6.0)
== END 2024-11-14 14:43 | disposition home or self-care (01) ==
LOC: HO.CHCLDS 14:42
PROVIDERS: Visit Provider Internal Medicine
DX: E66.3 Overweight (principal)
CPT/HCPCS: 36415; 80053; 80061; 83036; 84443; 85025

== ENCOUNTER 2025-08-14 11:50 | Outpatient (AMB) | payer MEDICAID, SELFPAY ==
--- NOTE | 2025-08-14 11:54 | MHC.OFFVIS ---
Vital Signs 08/14/25 11:59 Height 5 ft 8 in Weight 189 lb BMI 28.7 Intake Visit Reasons: OV: right hand dorsal ganglion cyst Intake Note: Zi is a 44 year old right hand dominant male who presents today for Follow Up of his Right Hand Dorsal Subcutaneous Mass. He was last seen 09/05/24 where surgical removal was discussed however surgical schedulers were not able to reach patient to sign him up for surgery. Today, patient reports he was incarcerated and could not be reached at the time. However, he states the cyst has increased in size although it has not changed color. He denies numbness, tingling, finger locking. He takes Motrin PRN with relief. Bowling Alley Mechanic Required: Yes Bowling Alley Mechanic Language: Paper Pattern Inspector Services: Bowling Alley Mechanic Present Bowling Alley Mechanic Name: Sushma LAZARO/ROBER Allergies No Known Allergies (No Known Allergies*) Allergy (Verified 08/14/25 11:55) HPI HPI OV: right hand dorsal ganglion cyst: Details: Zi is a 44 year old right hand dominant male who presents today for Follow Up of his Right Hand Dorsal Subcutaneous Mass. He was last seen 09/05/24 where surgical removal was discussed however surgical schedulers were not able to reach patient to sign him up for surgery. Today, patient reports he was incarcerated and could not be reached at the time. However, he states the cyst has increased in size although it has not changed color. Patient denies any redness or pain around this mass. He denies numbness, tingling, finger locking. He takes Motrin PRN with relief. [facility] Medical History Drug abuse Liver disease Social History (Updated 09/05/24 @ 13:32 by JOSE Palacios) Household Members: None Housing: Homeless Do you presently have visiting nurse or other home services: No Alcohol intake: unknown Patient Tobacco Use Status: Former Tobacco user Substance Use Type: Crack/Cocaine, Heroin, Marijuana and Opiates Advance Directives Date on File: 09/12/20 service: No Current occupational status: unemployed Review of Systems Const All systems reviewed & are unremarkable except as noted in HPI and below Physical Exam Vital Signs: BMI result Body Mass Index 28.7 Extrem Other: Patient is alert, oriented, and in no acute distress. Neuro: Normal sensation of the tips of all digits of the right hand at this time Vascular: Cap refill brisk Pain: No tenderness to palpation about the mass on the dorsal right hand No pain with range of motion of the right hand ROM: Patient is able to make a closed fist and extend all digits of the right hand fully and without difficulty Skin: There is noted to be in approximately 4-5 cm in diameter soft, mobile mass noted on the dorsal aspect of the patient's right hand consistent with a cystic mass, however masses located on the dorsal hand, not wrist, therefore I do not feel this is a ganglion No lacerations or abrasions. General: No ecchymosis, erythema, or evidence of infection. Psych: Appears grossly normal Affect normal Attitude cooperative Assessment & Plan Assessment & Plan (1) Subcutaneous mass of right hand: Code(s): R22.31 - Localized swelling, mass and lump, right upper limb Category: Medical Plan 1. Mass of dorsum of right hand Present for approximately 10 years I educated the patient about the condition. I discussed both operative and nonoperative treatment options. The patient would like to proceed with surgery. The risks and benefits of operative treatment were discussed with the patient and the patient wishes to proceed with surgery. These risks include, but are not limited to, risk of damage to blood vessels, nerves, tendons, infection, recurrence, incomplete relief of preoperative symptoms, persistent pain, possible need for further surgery, and the risks associated with regional blocks and/or anesthesia. Plan is to take the patient to the operating room at some point in the next few weeks for the following procedures: 1. Dorsal hand mass excision, right, under general anesthesia All of the preoperative paperwork including the consent was discussed today. All of the patient's questions were answered in the clinic today. The patient understands that they will be in contact with our rn medical surgical to discuss scheduling their procedure. Patient denies diabetes, blood thinners, asthma, heart issues, lung issues, kidney issues, or current smoking. Coding Level of Care Code Est Pt Level 4 (53282) Diagnoses Subcutaneous mass of right hand R22.31
[2025-08-14 11:59] VITALS: BMI 28.7
--- OUTSIDE RECORDS SUMMARY | 2025-08-14 15:41 | XMS_ITS | Encounter Summary ---
Author Organization [employer] Address [address] [facility] 7 [place] [address] Care Team Providers Care Commercial Fisher Name Role Phone Buddy Thomas MD Primary Care Prov ider Reason for Visit * Reason Onset Date Comments Medication Question 08/15/2024 Encounter Details Date Type Department Care Team (Late st Contact Info) Description 08/15/2024 Telephone [facility] MEDICINE [address] [place] [address] Buddy Thomas MD [address] [place], [place] [phone] Medication Question Social History Tobacco Use Types Packs/Day Years Used Date Smoking Tobacco: Every Day Cigarettes 0.5 25.9 Started: 1999 Smokeless Tobacco: Never Alcohol Use [...] choice to help him stop. Callback number [phone] documented in this encounter Plan of Treatment Not on file documented as of this encounter Visit Diagnoses Not on filedocumented in this encounter Additional Health Concerns Assessment Noted Time PHQ-9 Depression Total Score: 13 024 2:54 PM EDT documented as of this encounter Care Teams Commercial Fisher Relationship Specialty Start Date End Date Buddy Thomas MD [address] [place] [phone] PCP - General Internal Medicine 07/21/24 documented as of this encounter
--- OUTSIDE RECORDS SUMMARY | 2025-08-14 15:41 | XMS_ITS | Clinical Summary ---
Author Organization [employer] Address [address] [place] [address] 7[address] [place] [address] Care Team Providers Care Agricultural Research Engineer Name Role Phone Buddy Thomas MD Primary Care Prov ider Allergies No known active allergies Medications * This document contains information received from the source organization and may not represent a complete record from that organization. ibuprofen 600 MG tabletIndicatio ns:Pain, dental Take 1 tablet (600 mg) by mouth every 6 (six) hours if needed for mild pain for up to 20 doses. 20 tablet 025 Active sildenafil (Viagra) 100 MG tablet Take 1 tablet (100 mg) by mouth if needed for erectile dysfunction. 10 tablet 3 025 Active methadone (Dolophine) 10 MG/5ML solution Take 10 mg by mouth every 12 (twelve) hours if needed for withdrawal. Active QUEtiapine (SEROquel) 100 MG tablet Take 1 tablet (100 mg) by mouth at bedtime. 90 tablet 3 025 Active busPIRone (Buspar) 10 MG tablet Take 1 tablet (10 mg) by mouth 2 times daily. 60 tablet 1 025 Active hydrOXYzine pamoate (Vistaril) 50 MG capsule Take 1 capsule (50 mg) by mouth every 8 (eight) hours if needed for itching. 90 capsule 1 025 Active docusate sodium (Colace) 100 MG capsuleIndicati ons:Constipatio n, unspecified constipation type Take 1 tab po bid prn constipation 60 capsule 3 025 Active mirtazapine (Remeron) 15 MG tablet TAKE ONE TABLET AT BEDTIME 30 tablet 025 Active traZODone (Desyrel) 100 MG tablet TAKE ONE TABLET AT BEDTIME 30 tablet Active omeprazole (PriLOSEC) [address] capsule TAKE 1 CAPSULE BY MOUTH DAILY 90 capsule Active nicotine (Nicoderm CQ) 14 MG/24HR patch PLACE 1 PATCH ON THE SKIN ONCE A DAY AT THE SAME TIME 30 patch 1 Active nicotine (Nicoderm CQ) 14 MG/24HR patch Place 1 patch on the skin 1 (one) time each day at the same time. 30 patch 1 025 2024 Discontinued(R eorder (will not trigger [...] 03/16/2024 Depression, major 03/16/2024 Assessment & Plan (07/11/2025 1:10 PM EDT): No suicidal/homicidal ideas, will refer to [facility], meds renewed Assessment & Plan (07/28/2024 9:50 AM EST): Following therapist, pending psych evaluation, meds were renewed Assessment & Plan (05/14/2024 7:59 PM EDT): Will refer to therapist, not followed by psych, he was recently released from shelter Erectile dysfunction 03/16/2024 ALEN (generalized anxiety disorder) 03/16/2024 Hepatic fibrosis 03/16/2024 Insomnia 03/16/2024 Lower urinary tract symptoms 03/16/2024 Opioid use disorder 03/16/2024 Post-traumatic arthritis of right ankle 03/16/20 24 Venous insufficiency of leg 03/16/2024 Former light tobacco smoker 08/26/2023 Overview (05/31/2024): QUIT SMOKING Acute esophagitis 07/14/2019 Gastroesophageal reflux disease 12/17/2012 Assessment & Plan (07/11/2025 1:10 PM EDT): Will renew omprazole, continue lifestyle modifications, follow up in 4-6 months Assessment & Plan (07/28/2024 9:50 AM EST): Will renew omeprazole, lifestyle modifications were discussed, Chronic hepatitis C (CMS/HCC) 11/17/2012 Resolved Problems Problem Noted Date Diagnosed Date Resolved Date Opioid dependence 08/26/2023 06/06/2024 Overview (05/31/2024): HX OF OD X 2, GIVEN NARCAN. LAST TIME 1 YEAR AGO. Anxiety 11/17/2012 05/23/2024 Substance abuse (CMS/HCC) 11/17/2012 Encounters * This document contains information received from the source organization and may not represent a complete record from that organization. Date Type Department Care Team Description 08/01/2025 Refill [facility] MEDICINE [address] [place] [address] Buddy Thomas MD 07/11/2025 11:30 AM EDT Telemedicine [facility] [address] [place], [place] [phone] Buddy Thomas MD Moderate episode of recurrent major depressive disorder (CMS/HCC) (HCC) (Primary Dx); Constipation, unspecified constipation type; Dietary counseling; Exercise counseling; Chronic hepatitis C without hepatic coma (HCC); Gastroesophageal reflux disease without esophagitis 07/11/2025 Travel 07/10/2025 Telephone [facility] [address] [place] [address] Buddy Thomas MD Chart Prep 06/26/2025 Telephone [facility] [address] [place] [address] Buddy Thomas MD appointment cancelled 06/26/2025 Travel 06/23/2025 Telephone [facility] MED & PEDS [address] [place] [address] Buddy Thomas MD 06/07/2025 [facility] MEDICINE [address] [place], [place] [phone] Kayce Roger RN Error (VOID this visit) from Last 3 Months Immunizations Immunization Administration Dates Next Due Hep A, Adult 11/05/2007,02/29/2000,08/19/1999 Hep B, adult 04/15/2000,02/29/2000,12/19/1999 Influenza injectable quadriv alent preservative free 06/22/2019,08/29/2015 Influenza, seasonal, injecta ble, preservative free 07/28/2024 Pneumococcal Polysaccharide PPSV23 01/31/2017 Tdap 08/10/2021, 9,05/09/2019,06/01 Family History Medical History Relation Name Comments [...] PHQ-9: Questionnaire Data Not on file 1 Housing Stability Answer Date Recorded What is your housing situation today? I have kaela sing 07/11/[address] you li ve. Do you have problems with any of the following? None of the above 07/11/2025 Food Insecurity Answer Date Recorded Within the past 12 months, y ou worried that your food would run out before you got money to buy more: Never True 07/11/2025 Within the past 12 months,th e food you bought just didn't last and you didn't have enough money to get more: Never True Transportation Answer Date Recorded In the past 12 months, has l ack of transportation kept you from medical appts, meetings, work or from getting things needed for daily living? No 07/11/2025 Utilities Answer Date Recorded In the past 12 months, has t he electric, gas, oil or water company threatened to shut off services in your home? No 07/11/2025 Depression Answer Date Recorded Patient Health Questionnaire-2 Score 2 07/12/2024 Internet Access Answer Date Recorded Internet Access Q1 No 07/11/2025 Internet Access Q2 I do not want or need it 06/15 Sex and Gender Information Value Date Recorded Sex Assigned at Male 07/14/2022 10:15 AM EDT Legal Sex Male 10:15 AM EDT Gender Identity Male 07/14/2022 10:15 AM EDT Sexual Orientation Straight 07/14/2022 10 :15 AM EDT Last Filed Vital Signs Vital Sign Reading Time Taken Comments Blood Pressure 126/88 07/28/2024 8:45 AM EST Pulse 88 07/28/2024 8:45 AM EST Temperature 37.1 C (98.7 F) 07/28/2024 8:45 AM EST Respiratory Rate 20 07/28/2024 8:45 AM EST [...] Prophylaxis 1979 FIT DNA/Cologuard 1979 FIT 1979 Sigmoidoscopy 1979 Family Planning (PISQ) 1994 HPV Vaccines (1 - Male 3-dose series) 1994 Hepatitis B Vaccines (3 of 3 - 19+ 3-dose series) 06/19/2000 04/15/2000, 02/29/2000, 12/19/1999 Pneumococcal Vaccine: Pediatrics (0 to 5 Years) and At-Risk Patients (6 to 49) Years (2 of 2 - PCV) 01/31/2018 01/31/2017 Colorectal Cancer Screening 04/07/2021 FOBT 04/07/2021 04/07/2020, 08/16/2019 Dental Oral Exam 12/09/2024 06/10/2024 Depression Monitoring 01/10/2025 07/12/2024, 024 COVID-19 Vaccine (3 - season) 2025 06/14/2021, 12/14/2020 Influenza Vaccine (#1) 2025 , 06/22/2019, 08/29/2015 Tobacco Screening 06/10/2025 06/10/2024 Dental X-Ray: Bitewings 06/11/2025 06/10/2024, 05/31 Alcohol/Substance Use Screening 07/11/2026 07/11/2025 Disability Screening 07/11/2026 07/11/2025 SDOH Screening 07/11/2026 07/11/2025 Dental X-Ray: Full Mouth 06/11/2027 06/10/2024 Zoster Vaccines (1 of 2) 2029 Lipid Panel 11/14/2029 11/14/2024 DTaP/Tdap/Td Vaccines (5 - Td or Tdap) 08/10/2031 08/10/2021, 08/05/2019, 05/09/2019, Additional history exists RSV Patients and Patients Aged 60 years or older (1 - 1-dose 75+ series) 2054 Hepatitis A Vaccines Completed 11/05/2007, 02/29/2000, 08/19/1999 HIV Screening Completed 03/21/2024, 02/28/2022 HIB Vaccines Aged Out No longer eligi ble based on patient's age to complete this topic IPV Vaccines Aged Out No longer eligi ble based on patient's age to complete this topic Meningococcal B Vaccine Aged Out No l onger eligible based on patient's age to complete [...] Procedure Name Priority Date/Time Associated Diagnosis Comments LIPID PANEL, STANDARD Routine 11/14/2024 2:43 PM EST Overweight INTRAORAL - COMPLETE SERIES OF RADIOGRAPHIC IMAGES Routine 06/10/2024 11:00 AM EDT COMPREHENSIVE ORAL EVALUATION - NEW OR ESTABLISHED PATIENT Routine 06/10/2024 11:00 AM EDT HIV 1/2 ANTIGEN/ANTIBODY, FOURTH GENERATION W/RFL Routine 03/21/2024 9:33 AM EDT Opioid dependence, uncomplicated (CMS/HCC) OCCULT BLOOD, FECAL, IMMUNOASSAY Routine 04/07/2020 5:02 PM EDT from Last 3 Months or Most Recently Relevant to Health Maintenance Results * Lipid Panel, Standard (11/14/2024 2:43 PM EST) Triglycerides 102 <150 mg/dL [facility] Comment:Desirable Triglyceri de: less than 150 mg/dLBorderline High Triglyceride 150-199 mg/dLHigh Triglyceride: 200-499 mg/dLVery High Triglyceride: greater than or equal to 5OO mg/dL Cholesterol 144 <200 mg/dL [facility] Comment:Desirable Cholestero l: less than 200 mg/dLBorderline High Cholesterol: 200-239 mg/dLHigh Cholesterol: greater than 239 mg/dL LDL Cholesterol Calculated 76 <100 mg/dL [facility] Comment:Desirable LDL: less than 100 mg/dLNear Optimal/Above Optimal LDL: 110- 129 mg/dLBorderline High LDL: 130-159 mg/dLHigh LDL: 160-189 mg/dLVery High LDL: greater than or equal to 190 mg/dL HDL Cholesterol 48 >40 mg/dL [facility] Comment:Desirable HDL: great er than 40 mg/dL Note: This HDL assay may give artificially low results in patients with liver disease. Blood Venous blood specimen / Unknown 11/14/2024 2:43 PM EST 11/14/2024 5:45 PM EST us Buddy Mejia MD LAB BLOOD ORDERABL ES Final Result Performing Organization Address City/[facility]/ZIP Co de Phone Number [facility] [address] [place] [phone] * HIV-1/2 Antigen and Antibodies, Fourth Generation, with Reflexes (03/21/2024 9:33 AM EDT) HIV AB/AG Nonreactive Nonreactive [facility] Comment:HIV-1 p24 Ag and/or HIV-1/HIV-2 Ab not detected.A test result that is nonreactive does not exclude thepossibility of exposure to or infection with HIV-1 and/orHIV-2. Nonreactive results in this assay for individualswith prior exposure to HIV-1 and/or HIV-2 may be due toantigen and antibody levels that are below the limit ofdetection of this assay.The CO Every[employer] HIV Ag/Ab Combo assay result andsupplemental assay results should be interpreted inconjunction with the patient's clinical presentation,history and other laboratory results. If the results areinconsistent with clinical evidence, additional testing issuggested to confirm the result. Blood Venous blood specimen / Unknown 03/21/2024 9:33 AM EDT 03/21/2024 3:04 PM EDT us Alfonzo Shah MD LAB BLOOD ORDERABLES Final Resul t Performing Organization Address City/[facility]/ZIP Co de Phone Number [facility] [address] [place] [phone] * (ABNORMAL) OCCULT BLOOD STOOL (04/07/2020 5:02 PM EDT) OCCULT BLOOD STOOL POS(AA) [facility] 04/07/2020 5:02 PM EDT us Historical Provider LAB BODY FLUIDS AND STOOL S ORDERABLES Final Result [facility] [address] [phone], from Last 3 Months or Most Recently Relevant to Health Maintenance [place] [place] [address] C3 [facility]AL-[facility] MEDICAID STAND ADULT Care Teams Agricultural Research Engineer Relationship Specialty Start Date End Date Buddy Thomas MD [address] [place] [phone] PCP - General Internal Medicine 07/21/24
--- OUTSIDE RECORDS SUMMARY | 2025-08-14 15:41 | XMS_ITS | Encounter Summary ---
Author Organization [employer] [facility] Address [address] [place] [address] 7 [place] [address] Care Team Providers Care Kinder Teacher Name Role Phone Buddy Thomas MD Primary Care Prov ider Reason for Visit * Reason Onset Date Comments New Patient 03/09/2024 Encounter Details Date Type Department Care Team (Late st Contact Info) Description 03/09/2024 Telephone [facility] MEDICINE [address] [place], [place] [phone] Preet Wilson MD [address] [place], [place] [phone] New Patient Social History Tobacco Use Types [...] visit Medical Conditions: None stated Insurance name: [employer] (In Chart) Demographic information updated (Prefers [place]) documented in this encounter Plan of Treatment Not on file documented as of this encounter Visit Diagnoses Not on filedocumented in this encounter Care Teams Kinder Teacher Relationship Specialty Start Date End Date Buddy Thomas MD [address] [place] [phone] PCP - General Internal Medicine 07/21/24 documented as of this encounter
--- OUTSIDE RECORDS SUMMARY | 2025-08-14 15:41 | XMS_ITS | Encounter Summary ---
Author Organization [employer] Address [address] [facility] 7t [place] [address] Care Team Providers Care Data Modeling Specialist Name Role Phone Buddy Thomas MD Primary Care Prov ider Reason for Visit * Reason Comments Med Refill Encounter Details Date Type Department Care Team ([facility] st Contact Info) Description 09/05/2024 Refill [facility] MEDICINE [address] [place], [place] [phone] Alfonzo Shah MD [address] [place], [place] [phone] Tobacco dependence Social History Tobacco Use Types [...] documented as of this encounter Care Teams Data Modeling Specialist Relationship Specialty Start Date End Date MejiaBuddy Negron MD [address] [place] [phone] PCP - General Internal Medicine 07/21/24 documented as of this encounter
--- OUTSIDE RECORDS SUMMARY | 2025-08-14 15:41 | XMS_ITS | Encounter Summary ---
Author Organization [employer] [facility] Address [address] [place] [address] 7 [place] [address] Care Team Providers Care Wax Pattern Repairer Name Role Phone Buddy Thomas MD Primary Care Prov ider Reason for Visit * Reason Onset Date Comments New Patient Appt 01/22/2023 Encounter Details Date Type Department Care Team ([facility] st Contact Info) Description 01/22/2023 Telephone [facility] MEDICINE [address] [place] [address] Janene Carver MD [address] [place] [phone] New Patient Appt Social History Tobacco Use [...] left voicemail to give a call at [phone]. documented in this encounter Plan of Treatment Not on file documented as of this encounter Visit Diagnoses Not on filedocumented in this encounter Care Teams Wax Pattern Repairer Relationship Specialty Start Date End Date Buddy Thomas MD [address] [place] [phone] PCP - General Internal Medicine 07/21/24 documented as of this encounter
== END 2025-08-14 12:07 | disposition home or self-care (01) ==
LOC: HO.HOS 11:51
DX: R22.31 Localized swelling, mass and lump, right upper limb (principal)
CPT/HCPCS: 99214

== ENCOUNTER → 2025-08-14 11:50 | Outpatient (BNVA) | payer MEDICAID, SELFPAY | DX: R22.31 Localized swelling, mass and lump, right upper limb (principal); Z87.891 Personal history of nicotine dependence | CPT/HCPCS: 99212 ==

== ENCOUNTER 2025-09-06 11:07 | Outpatient (REF) | payer MEDICAID, SELFPAY ==
--- OUTSIDE RECORDS SUMMARY | 2025-09-06 10:45 | XMS_ITS | Encounter Summary ---
Author Organization [employer] Address [address] [facility] 7t [place] [address] Care Team Providers Care Cocktail Waitress Name Role Phone Buddy Thomas MD Primary Care Prov ider Encounter Details Date Type Department Care Team ([facility] Contact Info) Description 09/06/2025 10:45 AM EST Office Visit [facility] MED & PEDS [address] [place] [address] Katty Zazueta MD [address] [place] [address] Pre-op evaluation (Primary Dx) Social History Tobacco Use Types Packs/Day Years Used Date Smoking Tobacco: Every Day Cigarettes 0.5 26 Started: 1999 Smokeless Tobacco: Never Alcohol Use Standard Drinks/Week Comments Not Currently 0 (1 standard drink = 0.6 oz pur e alcohol) Depression Answer Date Recorded Patient Health Questionnaire-9 Score 13 07/12/2024 Patient Health Questionnaire-9 Score 13 07/12/2024 Last PHQ-9: Questionnaire Data Not on file 1 Housing Stability Answer Date Recorded What is your housing situation today? I have kaela zaragoza 07/11/[address] you li [...] AM EDT documented as of this encounter Last Filed Vital Signs Vital Sign Reading Time Taken Comments Blood Pressure 138/88 09/06/2025 10:48 AM EST Pulse 54 09/06/2025 10:48 AM EST Temperature 36.4 C (97.6 F) 09/06/2025 10:48 AM EST Respiratory Rate 20 09/06/2025 10:48 AM EST Oxygen Saturation 98% 09/06/2025 10:48 AM EST Inhaled Oxygen Concentration - - Weight 92 kg (202 lb 12.8 oz) 09/06/2025 10:48 A M EST Height 175.3 cm (5' 9 ) 09/06/2025 10:48 AM EST Body Mass Index 29.95 09/06/2025 10:48 AM EST documented in this encounter Plan of Treatment Scheduled Orders Name Type Priority Associated Diagnoses Orde r Schedule CBC auto differential Lab Routine Pre-op evaluation Expected: 09/06/2025 (Approximate), Expires: 09/06/2026 Comprehensive Metabolic Panel Lab Routine Pre-op evaluation Expected: 09/06/2025 (Approximate), Expires: 09/06/2026 Prothrombin Time-INR Lab Routine Pre-op evaluation Expected: 09/06/2025, Expires: 09/06/2026 documented as of this encounter Visit Diagnoses Diagnosis Pre-op evaluation- Primary documented in this encounter Additional Health Concerns Assessment Noted Time PHQ-9 Depression Total Score: 13 024 2:54 PM EDT documented as of this encounter Care Teams Cocktail Waitress Relationship Specialty Start Date End Date Buddy Thomas MD [address] [place] [phone] PCP - General Internal Medicine 07/21/24 documented as of this encounter
--- OUTSIDE RECORDS SUMMARY | 2025-09-06 11:12 | XMS_ITS | Encounter Summary ---
Author Organization [employer] Address [address] [place] [address] [place] [address] Care Team Providers Care Medical Accounts Receivable Specialist Name Role Phone Buddy Thomas MD Primary Care Prov ider Reason for Visit * Reason Onset Date Comments New Patient 03/09/2024 Encounter Details Date Type Department Care Team ([facility] st Contact Info) Description 03/09/2024 Telephone [facility] MEDICINE [address] [place], [place] [phone] Preet Wilson MD [address] [place] [address] New Patient Social History Tobacco Use Types [...] visit Medical Conditions: None stated Insurance name: [employer] (In Chart) Demographic information updated (Prefers [place]) documented in this encounter Plan of Treatment Not on file documented as of this encounter Visit Diagnoses Not on filedocumented in this encounter Care Teams Medical Accounts Receivable Specialist Relationship Specialty Start Date End Date Buddy Thomas MD [address] [place] [phone] PCP - General Internal Medicine 07/21/24 documented as of this encounter
--- OUTSIDE RECORDS SUMMARY | 2025-09-06 11:12 | XMS_ITS | Encounter Summary ---
Author Organization [employer] Address [address] [facility] 7t [place] [address] Care Team Providers Care Asp Developer Name Role Phone Buddy Thomas MD Primary Care Prov ider Encounter Details Date Type Department Care Team (Latest Contact Info) Description 09/06/2025 Travel Social History Tobacco Use Types Packs/Day [...] is your housing situation today? I have kaelajp zaragoza 07/11/[address] you [...] documented as of this encounter Care Teams Asp Developer Relationship Specialty Start Date End Date Buddy Thomas MD [address] [place] [id number] PCP - General Internal Medicine 07/21/24 documented as of this encounter
--- OUTSIDE RECORDS SUMMARY | 2025-09-06 11:12 | XMS_ITS | Clinical Summary ---
Author Organization [email or web address] Address [address] [place] [address] 7t [place] [address] Care Team Providers Care Volcanology Professor Name Role Phone Buddy Thomas MD Primary Care Prov ider Allergies No known active allergies Medications * This document contains information received from the source organization and may not represent a complete record from that organization. ibuprofen 600 MG tabletIndication s:Pain, dental Take 1 tablet (600 mg) by mouth every 6 (six) hours if needed for mild pain for up to 20 doses. 20 tablet 5 Active sildenafil (Viagra) 100 MG tablet Take 1 tablet (100 mg) by mouth if needed for erectile dysfunction. 10 tablet 3 5 Active methadone (Dolophine) 10 MG/5ML solution Take 10 mg by mouth every 12 (twelve) hours if needed for withdrawal. Active QUEtiapine (SEROquel) 100 MG tablet Take 1 tablet (100 mg) by mouth at bedtime. 90 tablet 3 5 Active busPIRone (Buspar) 10 MG tablet Take 1 tablet (10 mg) by mouth 2 times daily. 60 tablet 1 5 Active hydrOXYzine pamoate (Vistaril) 50 MG capsule Take 1 capsule (50 mg) by mouth every 8 (eight) hours if needed for itching. 90 capsule 1 5 Active docusate sodium (Colace) 100 MG capsuleIndicatio ns:Constipation, unspecified constipation type Take 1 tab po bid prn constipation 60 capsule 3 5 Active mirtazapine (Remeron) 15 MG tablet TAKE ONE TABLET AT BEDTIME 30 tablet 5 Active traZODone (Desyrel) 100 MG tablet TAKE ONE TABLET AT BEDTIME 30 tablet 5 Active omeprazole (PriLOSEC) [address] capsule TAKE 1 CAPSULE BY MOUTH DAILY 90 capsule Active nicotine (Nicoderm CQ) 14 MG/24HR patch PLACE 1 PATCH ON THE SKIN ONCE A DAY AT THE SAME TIME 30 patch 1 5 Active Active Problems Problem Noted Date Diagnosed Date [...] EDT): No suicidal/homicidal ideas, will refer to , meds renewed Assessment & Plan (07/28/2024 9:50 AM EST): Following therapist, pending psych evaluation, meds were renewed Assessment & Plan (05/14/2024 7:59 PM EDT): Will refer to therapist, not followed by psych, he was recently released [facility] Erectile dysfunction 03/16/2024 ALEN (generalized anxiety disorder) 03/16/2024 Hepatic fibrosis 03/16/2024 Insomnia 03/16/2024 Lower urinary tract symptoms 03/16/2024 Opioid use disorder 03/16/2024 Post-traumatic arthritis of right ankle 03/16/20 Venous insufficiency of leg 03/16/2024 Former light [...] organization. Date Type Department Care Team Description 09/06/2025 10:45 AM EST Office Visit [facility] CHC MED & PEDS [address] [place] [address] Katty Zazueta MD Pre-op evaluation (Primary Dx) 09/06/2025 Travel 08/31/[address] [facility] MEDICINE [address] [place] [address] Pierce Alfaro, [facility] appointment 08/18/2025 Telephone [facility] MED & PEDS [address] [place], [place] [phone] Buddy Thomas MD pre op 08/01/[address] [facility] MEDICINE [address] [place] [address] Buddy Thomas MD 07/11/2025 11:30 AM EDT Telemedicine [facility] MED & PEDS [address] [place] [address] Buddy Thomas MD Moderate episode of recurrent major depressive disorder (CMS/HCC) (HCC) (Primary Dx); Constipation, unspecified constipation type; Dietary counseling; Exercise counseling; Chronic hepatitis C without hepatic coma (HCC); Gastroesophageal reflux disease without esophagitis 07/11/2025 Travel 07/10/2025 Telephone [facility] MED & PEDS [address] [place] [address] Buddy Thomas MD Chart Prep 06/26/2025 Telephone [facility] MED & PEDS [address] [place] [address] Buddy Thomas MD appointment cancelled 06/26/2025 Travel 06/23/2025 Telephone [facility] MED & PEDS [address] [place] [address] Buddy Thomas MD 06/07/[address] [facility] MEDICINE [address] [place], [place] [phone] Kayce Roger, JAYSHREE Error (VOID this visit) from Last 3 [...] Mass Index 29.95 09/06/2025 10:48 AM EST Plan of Treatment Health Maintenance [...] 2:43 PM EST) Triglycerides 102 <150 mg/dL [facility] Comment:Desirable Triglyceri de: less than 150 mg/dLBorderline High Triglyceride 150-199 mg/dLHigh Triglyceride: 200-499 mg/dLVery High Triglyceride: greater than or equal to 5OO mg/dL Cholesterol 144 <200 mg/dL [facility] Comment:Desirable Cholestero l: less than 200 mg/dLBorderline High Cholesterol: 200-239 mg/dLHigh Cholesterol: greater than 239 mg/dL LDL Cholesterol Calculated 76 <100 mg/dL [facility] Comment:Desirable LDL: less than 100 mg/dLNear Optimal/Above Optimal LDL: 110- 129 mg/dLBorderline High LDL: 130-159 mg/dLHigh LDL: 160-189 mg/dLVery High LDL: greater than or equal to 190 mg/dL HDL Cholesterol 48 >40 mg/dL [facility] Comment:Desirable HDL: great er than 40 mg/dL Note: This HDL assay may give artificially low results in patients with liver disease. Blood Venous blood specimen / Unknown 11/14/2024 2:43 PM EST 11/14/2024 5:45 PM EST us Buddy Mejia MD LAB BLOOD ORDERABL ES Final Result [facility] [address] [place] [phone] * HIV-1/2 Antigen and Antibodies, Fourth Generation, with Reflexes (03/21/2024 9:33 AM EDT) HIV AB/AG Nonreactive Nonreactive [facility] Comment:HIV-1 p24 Ag and/or HIV-1/HIV-2 Ab not detected.A test result that is nonreactive does not exclude thepossibility of exposure to or infection with HIV-1 and/orHIV-2. Nonreactive results in this assay for individualswith prior exposure to HIV-1 and/or HIV-2 may be due toantigen and antibody levels that are below the limit ofdetection of this assay.The [employer] HIV Ag/Ab Combo assay result andsupplemental assay results should be interpreted inconjunction with the patient's clinical presentation,history and other laboratory results. If the results areinconsistent with clinical evidence, additional testing issuggested to confirm the result. Blood Venous blood specimen / Unknown 03/21/2024 9:33 AM EDT 03/21/2024 3:04 PM EDT us Alfonzo Shah MD LAB BLOOD ORDERABLES Final Resul t [facility] [address] [place] [address] [phone] * (ABNORMAL) OCCULT BLOOD STOOL (04/07/2020 5:02 PM EDT) OCCULT BLOOD STOOL POS(AA) [facility] 04/07/2020 5:02 PM EDT us Historical Provider LAB BODY FLUIDS AND STOOL S ORDERABLES Final Result [facility] [address] from Last 3 Months or Most Recently Relevant to Health Maintenance [place] [address] [place] [address] C[facility] MEDICAID STAND ADULT Care Teams Volcanology Professor Relationship Specialty Start Date End Date MejiaBuddy eNgron MD [address] [place] [phone] PCP - General Internal Medicine 07/21/24
--- OUTSIDE RECORDS SUMMARY | 2025-09-06 11:12 | XMS_ITS | Encounter Summary ---
Author Organization [employer] Address [address] [place] [address] [place] [address] Care Team Providers Care C Developer Name Role Phone Buddy Thomas MD Primary Care Prov ider Reason for Visit * Reason Onset Date Comments New Patient Appt 01/22/2023 Encounter Details Date Type Department Care Team (Late st Contact Info) Description 01/22/2023 Telephone [facility] MEDICINE [address] [place], [place] [phone] Janene Carver MD [address] [place] [address] New Patient Appt Social History Tobacco Use [...] left voicemail to give a call at [phone]. documented in this encounter Plan of Treatment Not on file documented as of this encounter Visit Diagnoses Not on filedocumented in this encounter Care Teams C Developer Relationship Specialty Start Date End Date MejiaBuddy Negron MD [address] [place] [phone] PCP - General Internal Medicine 07/21/24 documented as of this encounter
--- OUTSIDE RECORDS SUMMARY | 2025-09-06 11:12 | XMS_ITS | Encounter Summary ---
Author Organization [employer] Address [address] [facility] 7 [place] [address] Care Team Providers Care Manager Integration Name Role Phone Buddy Thomas MD Primary Care Prov ider Reason for Visit * Reason Onset Date Comments Medication Question 08/15/2024 Encounter Details Date Type Department Care Team ([facility] st Contact Info) Description 08/15/2024 Telephone [facility] MEDICINE [address] [place] [address] Buddy Thomas MD [address] [place], [place] [phone] Medication Question Social History Tobacco Use Types [...] choice to help him stop. Callback number [phone] documented in this encounter Plan of Treatment Not on file documented as of this encounter Visit Diagnoses Not on filedocumented in this encounter Additional Health Concerns Assessment Noted Time PHQ-9 Depression Total Score: 13 024 2:54 PM EDT documented as of this encounter Care Teams Manager Integration Relationship Specialty Start Date End Date Buddy Thomas MD [address] [place] [phone] PCP - General Internal Medicine 07/21/24 documented as of this encounter
--- OUTSIDE RECORDS SUMMARY | 2025-09-06 11:12 | XMS_ITS | Encounter Summary ---
Author Organization [employer] Address [address] [place] [address] [address] [place] [address] Care Team Providers Care Welding Machine Operator Electron Beam Name Role Phone Buddy Thomas MD Primary Care Prov ider Reason for Visit * Reason Comments Med Refill Encounter Details Date Type Department Care Team ([facility] st Contact Info) Description 09/05/2024 Refill [facility] MEDICINE [address] [place], [place] [phone] Alfonzo Shah MD [address] [place], [place] [phone] Tobacco dependence Social History Tobacco Use Types [...] documented as of this encounter Care Teams Welding Machine Operator Electron Beam Relationship Specialty Start Date End Date Buddy Thomas MD [address] [place] [phone] PCP - General Internal Medicine 07/21/24 documented as of this encounter
--- OUTSIDE RECORDS SUMMARY | 2025-09-06 11:12 | XMS_ITS | Clinical Summary ---
Author Organization [employer] Address [address] [place] [address] Care Team Providers Care Workers' Compensation Commissioner Name Role Phone Unavailable Primary Care Provider Unavailabl e Social History Tobacco Use Types Packs/Day Years Used Date Smoking Tobacco: Never Assessed Sex and Gender Information Value Date Recorded Sex Assigned at Not on file Legal Sex Male 4:16 PM EST Gender Identity Not on file Sexual Orientation Not on file Plan of Treatment Health Maintenance Due Date Last Done Comments Colorectal Cancer Screening: Colonoscopy 1979 DTaP,Tdap,and Td Vaccines (1 - Tdap) 1998 Hepatitis B Vaccines (1 of 3 - 19+ 3-dose series) 1998 HPV Vaccines (1 - 3-dose SCD M series) 2006 Cholesterol Screening (Lipid Panel) 08/13/2022 HIV Screening 08/13/2022 Hepatitis C Screening 08/13/2022 Social Influencers of Health Screening 08/13/2022 Depression Screening 09/14/2024 COVID-19 Vaccine (1 - 2024-2 6 season) 2025 Influenza Vaccine (#1) 2025 RSV Immunization Adult Patie nts (1 - 1-dose 75+ series) 2054 HIB Vaccines Aged Out No longer eligi ble based on patient's age to complete this topic Hepatitis A Vaccines Aged Out No long er eligible based on patient's age to complete this topic IPV Vaccines Aged Out No longer eligi ble based on patient's age to complete this topic MMR Vaccines Aged Out No longer eligi ble based on patient's age to complete this topic Meningococcal ACWY Vaccine Aged Out N o longer eligible based on patient's age to complete this topic Meningococcal B Vaccine Aged Out No l onger eligible based on patient's age to complete this topic Pneumococcal Vaccine: Pediat rics (0 to 5 Years) and At-Risk Patients (6 to 49 Years) Aged Out No longer eligible b ased on patient's age to complete this topic RSV Immunization Patients Un nayeli 20 months Aged Out No longer eligible b ased on patient's age to complete this topic Varicella Vaccines Aged Out No longer eligible based on patient's age to complete this topic Advance Directives Documents on File Type Date Recorded 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
[2025-09-06 14:58] LABS: MANUAL DIFF FLAG NO
[2025-09-06 15:09] LABS: INTERNATIONAL NORM RATIO 0.9 (0.9-1.1); Prothrombin Time 11.5 SEC (11.2-13.5)
[2025-09-06 15:15] LABS: Hematocrit 42.2 % (42.0-52.0); Hemoglobin 13.5 g/dl (14.0-18.0); Imm Gran Abs Auto 0.01 X10*3/uL (0.00-0.03); Imm Gran Pct Auto 0.2 % (0.0-0.4); Lymphocytes Absolute Auto 1.6 X10*3/uL (1.2-4.9); Mean Corpuscular HGB Conc 32.0 g/dl (31.0-36.0); Mean Corpuscular Hemoglobin 28.0 pg (27.0-33.0); Mean Corpuscular Volume 87.6 fL (80.0-98.0); NRBC Abs Auto 0.000 X10*3/uL (0.0-0.012); NRBC Pct Auto 0.0 /100WBC (0.0-0.2); Platelet Count 179 X10*3/uL (160-400); Red Blood Count 4.82 X10*6/uL (4.60-5.80); White Blood Count 5.3 X10*3/uL (4.8-10.8)
[2025-09-06 15:40] LABS: Alanine Aminotransferase 23 U/L (0-40); Albumin Level 4.4 g/dL (3.5-5.0); Alkaline Phosphatase 95 U/L (39-117); Anion Gap 12 (12-20); Aspartate Amino Transferase 27 U/L (5-37); Blood Urea Nitrogen 13 mg/dL (9-16); Calcium 9.2 mg/dL (8.4-10.2); Carbon Dioxide 27 mmol/L (22-29); Chloride 106 mmol/L (96-108); Estimated Glomerular Filt Rate > 60; Potassium 4.1 mmol/L (3.3-5.1); Sodium 141 mmol/L (135-145); Total Protein 7.3 g/dL (6.5-8.0)
== END 2025-09-06 11:08 | disposition home or self-care (01) ==
LOC: HO.CHCLDS 11:07
PROVIDERS: Visit Provider Internal Medicine
DX: Z01.818 Encounter for other preprocedural examination (principal)
CPT/HCPCS: 36415; 80053; 85025; 85610